=== PATIENT | female | born 1965 | race Caucasian/White ===

== ENCOUNTER → 2016-11-20 | Outpatient (CLI) | payer MEDICAID ==
--- NOTE | 2016-11-21 10:05 | BMR ---
EXAMINATION TYPE: MR breast BILAT wo/w con DATE OF EXAM: 11/20/2016 COMPARISON: Prior MRI bilateral breasts October 23, 2015 HISTORY: Annual screening, hx dense breast tissue, lt breast biopsy CONTRAST: Multiplanar, multisequence images of the breasts were acquired utilizing 15 mL intravenous MultiHance gadolinium contrast. TECHNIQUE: A series of fat and water weighted images in the long and short axis views of both breasts are obtained in conjunction with dynamic contrast MRI with subtraction technique. Three-dimensional and additional postprocessing imaging is created on independent workstation and reviewed during offi cial interpretation of this study. FINDINGS: Extremely dense fibroglandular tissue is redemonstrated throughout both breasts. There is r edemonstration of multiple round T2 hyperintense lesions bilaterally measuring all less than 1 cm arelis aterally. Overall findings are consistent with diffuse fibrocystic change. No suspicious skin thickening is seen bilaterally. The chest wall is grossly intact. No concerning ax illary or intramammary adenopathy is noted. No pathologic enhancement is seen. There is moderate symm etric background enhancement with foci of benign-appearing progressive enhancement bilaterally felt t o reflect adenomyosis. There is artifact from biopsy clip medially in the left breast posterior depth seen near axial image 20. There is stable 6 mm round T2 hyperintense lesion likely simple thin-walled cyst anterior liver on ax ial image 11. IMPRESSION: No MRI evidence for invasive malignancy in either breast. BI-RADS 2 benign findings both breasts. Recommendation: Consider continued annual MRI surveillance in high risk patient. Advise annual mammog zaid surveillance or correlation bilaterally.
== END | disposition home or self-care (01) ==
LOC: RADMRIMAIN 17:12
PROVIDERS: ATTEND Obstetrics & Gynecology
DX: Z12.31 Encounter for screening mammogram for malignant neoplasm of breast (principal)
CPT/HCPCS: 77059; 0159T; A9577

== ENCOUNTER 2017-05-19 06:59 | Day surgery (SDC) | payer MEDICAID ==
[2017-05-17 11:13] VITALS: BMI 25.0
[~2017-05-19 06:59] MED LIST: LACTATED RINGERS 1,000 ML IV SCH
[2017-05-19 07:25] VITALS: TEMP 98.2
[2017-05-19] MEDS ORDERED: LIDOCAINE 1% 20 ML VIAL (10MG/ML) FOR IV START INTRADERMA ONE (07:30)
[2017-05-19] MEDS ORDERED: PROPOFOL 10 MG/ML 20 ML VIAL IV ONE (07:41)
[2017-05-19] MEDS ORDERED: LIDOCAINE 1% INJ 10MG/ML (20 ML MDV) ONE (07:41)
--- NOTE | 2017-05-19 07:57 | P.GSHP ---
History of Present Illness H&P Date: 05/19/17 Patient here today for colonoscopy. She has not had one previously. No bowel related complaints. Her father's has a history of colon polyps. Past Medical History Past Medical History: Thyroid Disorder Additional Past Medical History / Comment(s): ENVIRONMENTAL ALLERGIES History of Any Multi-Drug Resistant Organisms: None Reported Past Surgical History: Appendectomy, Orthopedic Surgery, Tonsillectomy Additional Past Surgical History / Comment(s): sx: appy 1970, 1970 tonsils, 1984 arthroscopic left knee sx Past Anesthesia/Blood Transfusion Reactions: No Reported Reaction Smoking Status: Never smoker - Past Family History Mother Family Medical History: Cancer, CVA/TIA, Mitral Valve Prolapse (MVP) Additional Family Medical History / Comment(s): ca: breast. mitral valve replaced. mom had blood clots Father Family Medical History: COPD, Thyroid Disorder Additional Family Medical History / Comment(s): mom had diabetes Medications and Allergies Home Medications Medication Instructions Recorded Confirmed Type Beclomethasone Dipropionate [Qnasl 4.9 gm NS DAILY 08/30/15 05/19/17 History Children] Fexofenadine HCl [Carolynn Allergy] 180 mg PO QAM 08/30/15 05/19/17 History Levothyroxine Sodium [Synthroid] 12.5 mcg PO TUTHSA 08/30/15 05/19/17 History Montelukast [Singulair] 10 mg PO HS 08/30/15 05/19/17 History Allergies Allergy/AdvReac Type Severity Reaction Status Date / Time Penicillins Allergy Rash/Hives Verified 05/19/17 07:15 Enviro: dust, cat, tree Allergy Mild Stuffy Uncoded 05/19/17 07:15 mold,pollen nose, sneezing Surgical - Exam Vital Signs Temp Pulse Resp BP Pulse Ox 98.2 F 87 18 115/62 99 05/19/17 07:24 05/19/17 07:24 05/19/17 07:24 05/19/17 07:24 05/19/17 07:24 Physical exam: General: Well-developed, well-nourished HEENT: Normocephalic, sclerae nonicteric Abdomen: Nontender, nondistended Extremities: No edema Neuro: Alert and oriented Assessment and Plan (1) Colon cancer screening Narrative/Plan: Will proceed with colonoscopy at this time. Current Visit: Yes Status: Acute Code(s): Z12.11 - ENCOUNTER FOR SCREENING FOR MALIGNANT NEOPLASM OF COLON SNOMED Code(s): 456490366
--- NOTE | 2017-05-19 08:17 | P.PCN ---
Date of Procedure: 05/19/17 Procedure(s) Performed: PREOPERATIVE DIAGNOSIS: Colon cancer screening POSTOPERATIVE DIAGNOSIS: Transverse colon polyp, rectal polyp PROCEDURE: Colonoscopy with snare polypectomy ANESTHESIA: MAC SURGEON: Malachi Parikh M.D. SPECIMENS: Polyps ENDOSCOPIC PROCEDURE: The patient was placed on the endoscopy table in the left decubitus position. The Olympus colonoscope was inserted into the anus and passed under direct visualization to the base of the cecum. The appendiceal orifice was visualized. From that point the scope was slowly withdrawn inspecting all surfaces carefully. There were no neoplastic inflammatory or polypoid lesions throughout the cecum and ascending colon. In the mid transverse colon a sessile polyp was removed using the snare with cautery technique. The remainder of the transverse descending and sigmoid colon appeared normal. In the proximal rectum at about 15 cm there was a pedunculated polyp that was removed using the snare with cautery technique. The remainder the rectum appeared normal. There was no visible diverticulosis in the colon. Digital rectal examination was normal. The patient was taken to the recovery room in stable condition per anesthesia guidelines. RECOMMENDATIONS: Await biopsy results but would anticipate follow-up colonoscopy 5 years.
[2017-05-19 08:47] VITALS: BP 112/73; PULSE 77; RESP 18
== END 2017-05-19 08:54 | disposition home or self-care (01) ==
LOC: ORWHC2ENDO 06:59
PROVIDERS: ATTEND Surgery
DX: Z12.11 Encounter for screening for malignant neoplasm of colon (principal); D12.3 Benign neoplasm of transverse colon; D12.8 Benign neoplasm of rectum; E07.9 Disorder of thyroid, unspecified; Z88.0 Allergy status to penicillin; Z91.09 Other allergy status, other than to drugs and biological substances; Z79.899 Other long term (current) drug therapy; Z83.71 Family history of colonic polyps; Z80.3 Family history of malignant neoplasm of breast; Z83.3 Family history of diabetes mellitus; Z90.49 Acquired absence of other specified parts of digestive tract
CPT/HCPCS: 45385; 81025; 88305; J2001; J2704

== ENCOUNTER → 2017-11-09 | Outpatient (CLI) | payer MEDICAID ==
--- NOTE | 2017-11-11 13:58 | BMR ---
EXAMINATION TYPE: MR breast BILAT wo/w con DATE OF EXAM: 11/09/2017 COMPARISON: 10/23/2015 and 11/20/2016 MR breast HISTORY: High risk surveillance. Dense breast tissue. TECHNIQUE: A series of fat and water weighted images in the long and short axis views of both breasts are obtained in conjunction with dynamic contrast MRI with subtraction technique. The patient was i njected with 7.5 mL intravenous Gadavist gadolinium contrast. Three-dimensional and additional post processing imaging is created on independent workstation and reviewed during official interpretation of this study. FINDINGS: The breasts are composed of extreme fibroglandular tissue. Background parenchymal enhancement is mode rate and symmetric. There are numerous scattered bilateral T2 hyperintense nonenhancing cysts the largest seen within the right breast at the 9:00 position 1.8 and is a complicated cyst. Ductal ectasia is seen bilaterally, left greater than right. Susceptibility artifact is seen within the medial left breast at posterior depth from prior biopsy marker. There is no suspicious mass or nonmass enhancement within either breast. No suspicious washout enhanc ement is seen. No suspicious internal mammary, intramammary or axillary adenopathy within either ike st. There is redemonstration of a 6 mm T2 hyperintense nonenhancing stable probable hepatic cyst on T2 fa t sat axial image 7. This is favored to be benign. IMPRESSION: BI-RADS 2-Benign findings. No MR evidence of malignancy. Annual screening mammography is recommended in addition to supplementation with annual breast MRI in this high-risk patient.
== END | disposition home or self-care (01) ==
LOC: RADMRIMAIN 09:14
PROVIDERS: ATTEND Obstetrics & Gynecology
DX: R92.2 Inconclusive mammogram (principal)
CPT/HCPCS: 77059; 0159T; A9581

== ENCOUNTER → 2018-12-07 | Outpatient (CLI) | payer MEDICAID ==
--- NOTE | 2018-12-08 07:51 | BMR ---
EXAMINATION TYPE: MR breast BILAT wo/w con DATE OF EXAM: 12/07/2018 COMPARISON: Prior MRI bilateral breasts November 09, 2017 BI-RADS 2. HISTORY: Inconclusive mammogram, Dense tissue, Family hx of breast CA. High risk surveillance CONTRAST: Multiplanar, multisequence images of the breasts were acquired utilizing 7 mL intravenous Gadavist ga dolinium contrast. TECHNIQUE: A series of fat and water weighted images in the long and short axis views of both breasts are obtained in conjunction with dynamic contrast MRI with subtraction technique. Three-dimensional and additional postprocessing imaging is created on independent workstation and reviewed during offi [facility] interpretation of this study. FINDINGS: Extremely dense fibroglandular tissue is redemonstrated throughout both breasts. There are multiple thin-walled small cysts identified bilaterally more numerous on the left breast versus right breast. In addition there is ductal prominence or ectasia subareolar region of bilateral breasts, le ft greater than right redemonstrated. There is a more isointense 1.9 cm well-circumscribed nonenhanci ng lesion felt to reflect debris-filled cyst in the right breast anterior depth outer lower quadrant estimated 7-8 o'clock position. This is not significantly changed in size or appearance from prior st udy. Postcontrast images show fairly moderate background glandular enhancement more prominent left br east versus right breast. There is prominent duct medially in the left breast near nipple seen better on current study versus prior. No suspicious internal mammary adenopathy is noted bilaterally. With regards to the right breast. There is no suspicious skin thickening. No pathologic enhancement o r enhancing masses are identified. Chest wall is intact. No suspicious axillary adenopathy is seen. With regard to the left breast. There is artifact from biopsy clip near 9:00 position middle to poste rior depth. Some foci of enhancement or adenosis is present. No suspicious enhancing mass is seen. No pathologic enhancement noted. Chest wall is intact. No suspicious adenopathy is seen. Incidental 9 mm thin-walled cyst in the liver axial image 12 series 301. IMPRESSION: No convincing MRI evidence for invasive malignancy in either breast. BI-RADS 2 benign findings. Recommendation: Consider continuing annual MRI surveillance in high risk patient.
== END | disposition home or self-care (01) ==
LOC: RADMRIMAIN 10:41
PROVIDERS: ATTEND Obstetrics & Gynecology
DX: R92.2 Inconclusive mammogram (principal); Z80.3 Family history of malignant neoplasm of breast; Z88.0 Allergy status to penicillin
CPT/HCPCS: 77049; C8937; A9585

== ENCOUNTER → 2020-01-11 | Outpatient (CLI) | payer MEDICAID ==
--- NOTE | 2020-01-11 12:37 | BMR ---
EXAMINATION TYPE: MR breast BILAT wo/w con DATE OF EXAM: 01/11/2020 COMPARISON: Prior bilateral breast MRI December 07, 2018 BI-RADS 2 and older MRIs. HISTORY: dense tissue high risk patient CONTRAST: Multiplanar, multisequence images of the breasts were acquired utilizing 7 mL intravenous Gadavist ga dolinium contrast. TECHNIQUE: A series of fat and water weighted images in the long and short axis views of both breasts are obtained in conjunction with dynamic contrast MRI with subtraction technique. Three-dimensional and additional postprocessing imaging is created on independent workstation and reviewed during offi cial interpretation of this study. FINDINGS: Extremely dense fibroglandular tissue bilaterally is redemonstrated. T2 and STIR weighted i mages redemonstrate scattered thin-walled small cysts bilaterally more numerous in the left breast ve rsus right breast on background dense tissue though increased cystic change right breast noted from p rior MRI. There is persistent ductal prominence or dictation subareolar region of both breasts bilate rally redemonstrated. T1-weighted images show no new suspicious fat containing masses. Benign subcent imeter lymph nodes are redemonstrated in the bilateral axilla. No suspicious axillary adenopathy. Dyn amic postcontrast images show mild to moderate background glanular enhancement with linear and tiny n odular components, latter favoring benign adenosis. Largest lesion identified is 4 mm enhancing lesio n level of nipple lateral aspect 9:00 level left breast axial image 374 is unchanged from prior MRI. Delayed postcontrast imaging shows no suspicious intramammary adenopathy. With regards to the right breast there is a stable oval well-defined 1.9 cm lesion just below level o f nipple in the outer inferior quadrant anterior depth of T1 slight hyperintensity and T2 hyperintens ity without enhancement felt to reflect a dominant proteinaceous cyst. Just medial and superior to th is at subareolar region right breast lateral aspect of nipple there is 4 to 5 mm enhancing round lesi on not well visualized on T1 and T2-weighted images seen best image 326 series 701. This shows predom inantly gradual and plateau-type enhancement. Favor benign etiology. Not clearly identified on prior MRI. There is no additional pathologic enhancement or enhancing masses identified. No suspicious skin thickening is seen. Chest wall is intact. With regards to the left breast, there is artifact from biopsy clip noted mid to posterior depth medi al aspect just below level of nipple image 43 series 601 near 9 to 10:00 position redemonstrated. No pathologic enhancement or enhancing masses. No suspicious skin thickening. Chest wall is intact. Incidental stable 7 mm thin-walled cyst anterior right hepatic lobe axial image 13 series 301. IMPRESSION: New roughly 5 mm enhancing lesion subareolar region right breast, favored benign based on oval-shaped and fairly benign dynamic postcontrast enhancement but advise further workup due to new lesion from prior MRI. BI-RADS 2 benign findings left breast BI-RADS 4A suspicious findings right breast Recommendation: Targeted ultrasound follow-up right breast lesion.
== END | disposition home or self-care (01) ==
LOC: RADMRIMAIN 08:01
PROVIDERS: ATTEND Obstetrics & Gynecology
DX: N64.9 Disorder of breast, unspecified (principal)
CPT/HCPCS: 77049; C8937; A9585

== ENCOUNTER → 2020-01-26 | Outpatient (CLI) | payer MEDICAID ==
--- NOTE | 2020-01-29 10:40 | USB ---
Reason for exam: clinical finding. Physical Findings: Nurse did not find any significant physical abnormalities on exam. US Breast Limited RT Right limited breast ultrasound including focal area of concern, retroareolar and axilla demonstrates a 2.4 x 2.3 x 0.9cm cystic lesion at 9 o'clock and multiple ducts seen at the posterior nipple. These results were verbally communicated with the patient and result sheet given to the patient on 01/26/20. ASSESSMENT: Probably benign, BI-RAD 3 RECOMMENDATION: Ultrasound of the right breast in 6 months. Breast MRI of both breasts in 6 months. (6 months if possible, otherwise repeat 1 year)
== END | disposition home or self-care (01) ==
LOC: RADUSWWP 07:34
PROVIDERS: ATTEND Obstetrics & Gynecology
DX: N63.10 Unspecified lump in the right breast, unspecified quadrant (principal); Z91.89 Other specified personal risk factors, not elsewhere classified

== ENCOUNTER → 2020-06-26 | Outpatient (CLI) | payer MEDICAID ==
--- NOTE | 2020-06-26 13:01 | BMR ---
EXAMINATION TYPE: MR breast BILAT wo/w con DATE OF EXAM: 06/26/2020 COMPARISON: Prior bilateral breast MRI January 11, 2020 and older studies. HISTORY: Prior abnormal findings, dense tissue, high risk patient TECHNIQUE: A series of fat and water weighted images in the long and short axis views of both breasts are obtained in conjunction with dynamic contrast MRI with subtraction technique. The patient was i njected with 8 mL intravenous Gadavist gadolinium contrast. Three-dimensional and additional postpr ocessing imaging is created on independent workstation and reviewed during official interpretation of this study. FINDINGS: Extremely dense fibroglandular tissue bilaterally is once again redemonstrated. T2 and STIR weighted images redemonstrate multiple scattered thin-walled small and tiny cysts bilaterally more n umerous in the left breast versus right breast on background dense fibroglandular tissue is redemonst rated. There is persistent ductal prominence or dictation subareolar region of both breasts bilateral ly redemonstrated. Subcentimeter benign lymph nodes are redemonstrated and unchanged in the bilateral axilla. No suspicious new axillary adenopathy. Dynamic postcontrast images show moderate background fibroglandular enhancement with linear and tiny nodular components, latter favoring benign adenosis. Findings more prominent from prior MRI making evaluation slightly suboptimal on current study. Findin gs prominent left breast versus right breast on current study. No enhancing focus greater than 4 mm i dentified. Similar findings noted on prior MRI. Delayed dynamic postcontrast imaging shows no suspici ous new intramammary adenopathy. With regards to the right breast there is a stable oval well-defined 1.9 cm lesion just below level o f nipple in the outer inferior quadrant anterior depth of T1 slight hyperintensity and T2 hyperintens ity without enhancement felt to reflect a dominant proteinaceous cyst. . Just medial and superior to this at subareolar region right breast there is stable 4 mm enhancing round lesion not well visualize d on T1 and T2-weighted images seen for reference series 702 image 278 current study. Stability sugge sts benign etiology. There is no new pathologic enhancement or enhancing masses identified. No suspic ious skin thickening is seen. Chest wall is intact. With regards to the left breast, there is artifact from biopsy clip noted mid to posterior depth medi al aspect just below level of nipple image 48 series 601 near 9 to 10:00 position redemonstrated. No new pathologic enhancement or focal enhancing masses. No suspicious skin thickening. Chest wall is in tact. Incidental stable 7 mm thin-walled cyst anterior right hepatic lobe coronal image 29 series 401 redem onstrated. IMPRESSION: No MRI evidence for new invasive malignancy in either breast. BI-RADS 2 benign findings right breast. BI-RADS 2 benign findings left breast. Recommendation: Annual MRI surveillance advised in high risk patients. Annual bilateral breast mammog zaid advised.
== END ==
LOC: RADMRIMAIN 07:14
PROVIDERS: ATTEND Obstetrics & Gynecology
DX: R92.8 Other abnormal and inconclusive findings on diagnostic imaging of breast (principal)
CPT/HCPCS: 77049; C8937; A9585

== ENCOUNTER → 2020-06-28 | Outpatient (CLI) | payer MEDICAID ==
--- NOTE | 2020-06-28 09:40 | USB ---
Reason for exam: follow-up at short interval from prior study. Physical Findings: Nurse did not find any significant physical abnormalities on exam. US Breast Limited RT Right limited breast ultrasound including focal area of concern, retroareolar and axilla demonstrates a 2.5 x 0.9 x 2.4cm oval, cystic, benign lesion at 9 o'clock, benign. Ductal dilation noted. Scanned 9-12 o'clock. These results were verbally communicated with the patient and result sheet given to the patient on 06/28/20. ASSESSMENT: Benign, BI-RAD 2 RECOMMENDATION: Routine screening mammogram of both breasts in 6 months. Alternating 6 month screening mammogram and 6 month screening MRI in a high risk patient (if greater than 20% lifetime risk of developing breast cancer). KIM
== END ==
LOC: RADUSWWP 07:35
PROVIDERS: ATTEND Obstetrics & Gynecology
DX: N60.01 Solitary cyst of right breast (principal); N60.41 Mammary duct ectasia of right breast

== ENCOUNTER → 2021-02-28 | Outpatient (CLI) | payer MEDICAID ==
--- NOTE | 2021-03-01 15:26 | US ---
EXAMINATION TYPE: US pelvis complete transvag DATE OF EXAM: 02/28/2021 COMPARISON: NONE CLINICAL HISTORY: N93.8 Other specified abnormal uterine and vaginal. TECHNIQUE: Transvaginal (TV) and Transabdominal (TA) . Transabdominal sonographic images of the pel vis were acquired. Transvaginal sonographic images were ordered Date of LMP: 01-26-21 EXAM MEASUREMENTS: Uterus: 10.7 x 6.0 x 7.5 cm Endometrial Stripe: 1.7 cm Right Ovary: Obscured by overlying bowel gas Left Ovary: Obscured by overlying bowel gas 1. Uterus: Anteverted 2. Endometrium: wnl 3. Right Ovary: Obscured by overlying bowel gas 4. Left Ovary: Obscured by overlying bowel gas 5. Bilateral Adnexa: wnl 6. Posterior cul-de-sac: wnl IMPRESSION: 1. Thickened endometrial stripe.
== END | disposition home or self-care (01) ==
LOC: RADUSWWP 16:19
PROVIDERS: ATTEND Obstetrics & Gynecology
DX: Z03.89 Encounter for observation for other suspected diseases and conditions ruled out (principal)
CPT/HCPCS: 76830; 76856

== ENCOUNTER → 2021-04-10 | Outpatient (CLI) | payer MEDICAID ==
--- NOTE | 2021-04-15 14:58 | MM ---
Reason for exam: screening (asymptomatic). Last mammogram was performed 6 years ago. History: Patient had first child at age 52. Family history of breast cancer in mother at age 60. Benign ultrasound-guided core biopsy of the left breast, 2013. Physical Findings: A clinical breast exam by your physician is recommended on an annual basis and results should be correlated with mammographic findings. MG 3D Screening Mammo W/Cad Bilateral CC and MLO view(s) were taken. Prior study comparison: June 28, 2020, right breast US breast limited RT. April 02, 2015, mammogram. February 20, 2014, mammogram. The breast tissue is heterogeneously dense. This may lower the sensitivity of mammography. Previous mammotome biopsy in the left breast. There is chronic nodularity in the right breast subareolar 9 o'clock measuring 2.4cm, corresponds to the cyst seen on 06/28/20 ultrasound. No significant changes when compared with prior studies. ASSESSMENT: Benign, BI-RAD 2 RECOMMENDATION: Routine screening mammogram of both breasts in 1 year. Patient should continue monthly self breast exams. If greater than 20% lifetime risk of breast cancer, continued high risk screening with alternating screening mammogram and ultrasound at 6 month intervals.
== END | disposition home or self-care (01) ==
LOC: RADMAMWWP 16:12
PROVIDERS: ATTEND Obstetrics & Gynecology
DX: Z12.31 Encounter for screening mammogram for malignant neoplasm of breast (principal)
CPT/HCPCS: 77063; 77067

== ENCOUNTER 2021-06-04 11:13 | Inpatient (IN) | payer MEDICAID ==
[2021-06-04] MEDS ORDERED: SODIUM CHLORIDE 0.9% 1,000 ML IV STA (11:44)
[2021-06-04] MEDS ORDERED: DEXAMETHASONE SOD PHOSPHATE 10 MG/ML 1 ML VIAL IVP STA (11:45)
[2021-06-04] MEDS ORDERED: ACETAMINOPHEN TAB 500 MG TAB PO STA (11:45)
--- NOTE | 2021-06-04 11:57 | ED ---
General Adult HPI - General Chief complaint: Shortness of Breath Stated complaint: Pneumonia/Low blood oxygen Time Seen by Provider: 06/04/21 11:15 Source: patient, family, RN notes reviewed, old records reviewed Mode of arrival: ambulatory Limitations: no limitations - History of Present Illness Initial comments: This is a 55-year-old female who presents emergency Department complaining of difficulty breathing. Patient states she had cold about 2 weeks ago. On Wednesday he started having difficulty breathing is gotten progressively worse. At home her pulse ox was 79%. Patient is not vaccinated. Patient has been getting fevers chills. Patient states on Wednesday she felt fine but states Wednesday she started having shortness of breath. Patient denies any chest pain or palpitations. Patient denies abdominal pain patient denies nausea vomiting diarrhea. - Related Data Home Medications Medication Instructions Recorded Confirmed Beclomethasone Dipropionate [Qnasl 2 spray EA NOSTRIL DAILY 08/30/15 06/04/21 Children] Levothyroxine Sodium [Synthroid] 25 mcg PO DAILY 08/30/15 06/04/21 Montelukast [Singulair] 10 mg PO HS 08/30/15 06/04/21 Fexofenadine/Pseudoephedrine 1 tab PO DAILY 06/04/21 06/04/21 [Carolynn-D 24 Hour Tablet] Ibuprofen [Motrin Ib] 600 mg PO Q8H PRN 06/04/21 06/04/21 RABEprazole SODIUM 20 mg PO DAILY 06/04/21 06/04/21 methylPREDNISolone [Medrol Dose See Taper PO DAILY 06/04/21 06/04/21 Pack] Allergies Allergy/AdvReac Type Severity Reaction Status Date / Time Penicillins Allergy Rash/Hives Verified 06/04/21 12:09 Enviro: dust, cat, tree Allergy Mild Stuffy Uncoded 06/04/21 11:18 mold,pollen nose, sneezing Review of Systems ROS Statement: Those systems with pertinent positive or pertinent negative responses have been documented in the HPI. ROS Other: All systems not noted in ROS Statement are negative. Past Medical History Past Medical History: Thyroid Disorder Additional Past Medical History / Comment(s): ENVIRONMENTAL ALLERGIES History of Any Multi-Drug Resistant Organisms: None Reported Past Surgical History: Appendectomy, Orthopedic Surgery, Tonsillectomy Additional Past Surgical History / Comment(s): sx: appy 1970, 1970 tonsils, 1985 arthroscopic left knee sx Past Anesthesia/Blood Transfusion Reactions: No Reported Reaction Past Psychological History: No Psychological Hx Reported Smoking Status: Never smoker Past Alcohol Use History: None Reported Past Drug Use History: None Reported - Past Family History Mother Family Medical History: Cancer, CVA/TIA, Mitral Valve Prolapse (MVP) Additional Family Medical History / Comment(s): ca: breast. mitral valve replaced. mom had blood clots Father Family Medical History: COPD, Thyroid Disorder Additional Family Medical History / Comment(s): mom had diabetes General Exam - General Exam Comments Initial Comments: GENERAL: Patient is well-developed and well-nourished. Patient is nontoxic and well-hydrated and is in mild distress. Patient's pulse ox on 6 L was 96% ENT: Neck is soft and supple. No significant lymphadenopathy is noted. Oropharynx is clear. Moist mucous membranes. Neck has full range of motion without eliciting any pain. EYES: The sclera were anicteric and conjunctiva were pink and moist. Extraocular movements were intact and pupils were equal round and reactive to light. Eyelids were unremarkable. PULMONARY: Unlabored respirations. Good breath sounds bilaterally. Bilateral crackles CARDIOVASCULAR: There is a regular rate and rhythm without any murmurs gallops or rubs. ABDOMEN: Soft and nontender with normal bowel sounds. SKIN: Skin is clear with no lesions or rashes and otherwise unremarkable. NEUROLOGIC: Patient is alert and oriented x3. Cranial nerves II through XII are grossly intact. Motor and sensory are also intact. Normal speech, volume and content. Symmetrical smile. MUSCULOSKELETAL: Normal extremities with adequate strength and full range of motion. LYMPHATICS: No significant lymphadenopathy is noted PSYCHIATRIC: Normal psychiatric evaluation. Limitations: no limitations Course Vital Signs 06/04/21 06/04/21 06/04/21 11:15 11:18 13:21 Temperature 98.6 F Pulse Rate 100 91 Respiratory 20 20 Rate Blood Pressure 105/63 115/72 O2 Sat by Pulse 78 L 96 93 L Oximetry Medical Decision Making - Medical Decision Making EKG shows sinus rhythm at 93 bpm AL interval 229 QRSs 106 QT interval 377 QTC is 420. Patient's EKG shows no ST segment elevation or depression. Her chest x- ray shows extensive groundglass infiltrate consistent with COVID. Patient's d-dimer was elevated so I ordered a CAT scan to rule out PE. I spoke with Mr. [facility] agreed to admit the patient admitted the patient I wrote admitting orders. - Lab Data Result diagrams: 06/04/21 12:04 06/04/21 12:04 Lab Results 06/04/21 06/04/21 06/04/21 Range/Units 12:04 12:04 12:04 WBC 11.3 H (3.8-10.6) k/uL RBC 4.20 (3.80-5.40) m/uL Hgb 12.1 (11.4-16.0) gm/dL Hct 37.3 (34.0-46.0) % MCV 88.9 (80.0-100.0) fL MCH 28.8 (25.0-35.0) pg MCHC 32.3 (31.0-37.0) g/dL RDW 14.3 (11.5-15.5) % Plt Count 374 (150-450) k/uL MPV 8.2 Neutrophils % 91 % Lymphocytes % 5 % Monocytes % 2 % Eosinophils % 1 % Basophils % 0 % Neutrophils # 10.3 H (1.3-7.7) k/uL Lymphocytes # 0.5 L (1.0-4.8) k/uL Monocytes # 0.2 (0-1.0) k/uL Eosinophils # 0.1 (0-0.7) k/uL Basophils # 0.0 (0-0.2) k/uL Hypochromasia Slight D-Dimer 9.45 H (<0.60) mg/L FEU Sodium 136 L (137-145) mmol/L Potassium 3.6 (3.5-5.1) mmol/L Chloride 101 (98-107) mmol/L Carbon Dioxide 28 (22-30) mmol/L Anion Gap 7 mmol/L BUN 12 (7-17) mg/dL Creatinine 0.61 (0.52-1.04) mg/dL Est GFR (CKD-EPI)AfAm >90 (>60 ml/min/1.73 sqM) Est GFR (CKD-EPI)NonAf >90 (>60 ml/min/1.73 sqM) Glucose 96 (74-99) mg/dL Calcium 8.1 L (8.4-10.2) mg/dL Total Bilirubin 1.6 H (0.2-1.3) mg/dL AST 77 H (14-36) U/L ALT 88 H (4-34) U/L Alkaline Phosphatase 151 H (38-126) U/L Total Protein 5.5 L (6.3-8.2) g/dL Albumin 2.6 L (3.5-5.0) g/dL Disposition Clinical Impression: Pneumonia due to COVID-19 virus Disposition: ADMITTED IP TO THIS HOSP Referrals: Payal Lopes DO [Primary Care Provider] - 1-2 days Time of Disposition: 13:28
--- NOTE | 2021-06-04 12:38 | XR ---
EXAMINATION TYPE: XR chest 2V DATE OF EXAM: 06/04/2021 COMPARISON: 01/09/2011 HISTORY: Shortness of breath TECHNIQUE: Frontal and lateral views of the chest are obtained. FINDINGS: Scattered senescent parenchymal changes noted. Hyperinflation compatible with COPD. Moderate airspace infiltrates are seen within the periphery of the left lung as well as left lung bas e as well as the right mid and right lower lung baldwin. Correlate for Covid 19 pneumonia. Heart size is stable. Mediastinal structures are stable and grossly unremarkable. No evidence for hilar prominence. Degenerative changes dorsal spine. IMPRESSION: 1. Moderate airspace infiltrates are seen within the periphery of the left lung as well as left lung base as well as the right mid and right lower lung baldwin. Correlate for Covid 19 pneumonia.
[2021-06-04 12:39] LABS: Basophils % (A) 0 %; Eosinophils # (A) 0.1 k/uL (0-0.7); Eosinophils % (A) 1 %; HCT 37.3 % (34.0-46.0); HGB 12.1 gm/dL (11.4-16.0); Hypochromasia Slight; Lymphocytes # (A) 0.5 k/uL (1.0-4.8); Lymphocytes % (A) 5 %; MCH 28.8 pg (25.0-35.0); MCHC 32.3 g/dL (31.0-37.0); MCV 88.9 fL (80.0-100.0); Mean Platelet Volume 8.2; Monocytes # (A) 0.2 k/uL (0-1.0); Monocytes % (A) 2 %; Neutrophils # (A) 10.3 k/uL (1.3-7.7); Neutrophils % (A) 91 %; Platelet Count 374 k/uL (150-450); RDW 14.3 % (11.5-15.5); WBC 11.3 k/uL (3.8-10.6)
[2021-06-04 12:59] LABS: ALT 88 U/L (4-34); AST 77 U/L (14-36); African American GFR (CKD) >90 (>60 ml/min/1.73 sqM); Albumin 2.6 g/dL (3.5-5.0); Alkaline Phosphatase 151 U/L (38-126); Anion Gap 7 mmol/L; Blood Urea Nitrogen 12 mg/dL (7-17); Calcium 8.1 mg/dL (8.4-10.2); Carbon Dioxide 28 mmol/L (22-30); Chloride 101 mmol/L (98-107); Glucose 96 mg/dL (74-99); Non-African American GFR(CKD) >90 (>60 ml/min/1.73 sqM); Potassium 3.6 mmol/L (3.5-5.1); Sodium 136 mmol/L (137-145); Total Bilirubin 1.6 mg/dL (0.2-1.3); Total Protein 5.5 g/dL (6.3-8.2)
[2021-06-04] MEDS ORDERED: SODIUM CHLORIDE 0.9% 1,000 ML IV ONE (13:28)
--- NOTE | 2021-06-04 14:52 | CT ---
EXAMINATION TYPE: CT chest angio for PE DATE OF EXAM: 06/04/2021 COMPARISON: 07/16/2015 HISTORY: Cough, elevated d-dimer CT DLP: 314.3 mGycm Automated exposure control for dose reduction was used. CONTRAST: CT Chest for pulmonary embolism performed with with IV Contrast, patient injected with 100 mL of Isov ue 370. FINDINGS: LUNGS: There are diffuse bilateral infiltrate greater peripheral enhancement. Findings compatible wit h diffuse pneumonia. COVID pneumonia in the differential diagnosis. No sizable pleural effusion. No p neumothorax. Subpleural nodularity is a small to characterize. MEDIASTINUM: There is no diagnostic evidence of central pulmonary embolism. Some limitation of the mi d and distal branches with no definite filling defect seen to suggest pulmonary embolism. Pathologic adenopathy in the right hilum measuring short axis of 1.7 cm. Heart size normal. Aorta measures 4.1 c m mild aneurysmal dilation. There is very mild coronary artery calcification suspected. Trace of wesley cardial fluid noted. OTHER: Hypertrophic and degenerative changes of visualized. Small hypodensity seen in dome of the liver too small to characterize but statistically most likely r elated to a cyst. Retrospectively stable from prior exam. Hypodensity in the hilum of the spleen gigi ures approximately 27 Hounsfield units IMPRESSION: 1. Diffuse bilateral infiltrates correlate for diffuse pneumonia with a pathologic right hilar adenop athy. 2. No central pulmonary embolism. Mid and distal branches somewhat limited with no obvious filling d efect seen. 3. Mild aneurysmal dilation ascending aorta measuring 4.1 cm 4. Indeterminate splenic lesion could be correlated with ultrasound.
[2021-06-04] MEDS ORDERED: cefTRIAXone IN SWFI 1,000 MG/10 ML SYRINGE IVP STA (14:56)
[2021-06-04] MEDS ORDERED: AZITHROMYCIN 500 MG in SODIUM CHLORIDE 0.9% 250 ML IVPB STA (14:56)
--- NOTE | 2021-06-04 15:22 | P.CNPUL ---
History of Present Illness Consult date: 06/04/21 Requesting physician: Payal Lopes Reason for consult: dyspnea, cough, hypoxemia, pneumonia, abnormal CXR/CT Chief complaint: Shortness of breath. History of present illness: Pulmonary consult dated 06/04/2021. 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 The patient apparently has not been feeling well for at least a couple weeks. She apparently tested positive for coronavirus back on May 23. Early on, she mostly had nasal congestion and drainage. More recently, she's been feeling worse, but she over the last 4 or 5 days. She apparently started having difficulty breathing over the weekend, her home pulse ox saturation was only 79%. She had fever and chills. For that reason, she came to the emergency room to be evaluated was minute with a diagnosis of hypoxemic respiratory failure secondary to coronavirus associated pneumonia. The patient is on vaccinated. She has no significant past medical history save for ALLERGIES, and hypothyroidism.. She does not use tobacco products. Her family doctor is Dr. Lopes. Currently, she is on 4 L nasal cannula. She's not receiving any IV fluids. Her white count was 11.3, hemoglobin 12.1, johnna tocrit 37.3, platelet count 374,000. D-dimer was 9.45. Sodium was 136. The rest of the electrolyte profile looks good. Calcium 8.1 bilirubin 1.6 AST 77 ALT 88 and albumin 2.6. Testing here for coronavirus was positive. Chest x-ray shows diffuse bilateral infiltrates. CAT scan was negative for pulmonary embolism but did reveal significant bilateral groundglass opacities. Review of Systems REVIEW OF SYSTEMS: CONSTITUTIONAL: [Negative.] NEUROLOGIC: [ Negative.] HEENT: [ Negative.] CARDIAC: [Negative.] PULMONARY: Shortness of breath and cough. GI: [Negative.] : [Negative.] RHEUMATOLOGIC: [ Negative.] IMMUNOLOGIC: [ Negative.] ENDOCRINE: [Negative. ] DERMATOLOGIC: [Negative.] Past Medical History Past Medical History: Thyroid Disorder Additional Past Medical History / Comment(s): ENVIRONMENTAL ALLERGIES History of Any Multi-Drug Resistant Organisms: None Reported Past Surgical History: Appendectomy, Orthopedic Surgery, Tonsillectomy Additional Past Surgical History / Comment(s): sx: appy 1970, 1971 tonsils, 1985 arthroscopic left knee sx Past Anesthesia/Blood Transfusion Reactions: No Reported Reaction Past Psychological History: No Psychological Hx Reported Smoking Status: Never smoker Past Alcohol Use History: None Reported Past Drug Use History: None Reported - Past Family History Mother Family Medical History: Cancer, CVA/TIA, Mitral Valve Prolapse (MVP) Additional Family Medical History / Comment(s): ca: breast. mitral valve replaced. mom had blood clots Father Family Medical History: COPD, Thyroid Disorder Additional Family Medical History / Comment(s): mom had diabetes Medications and Allergies Home Medications Medication Instructions Recorded Confirmed Type Beclomethasone Dipropionate [Qnasl 2 spray EA NOSTRIL DAILY 08/30/15 06/04/21 History Children] Levothyroxine Sodium [Synthroid] 25 mcg PO DAILY 08/30/15 06/04/21 History Montelukast [Singulair] 10 mg PO HS 08/30/15 06/04/21 History Fexofenadine/Pseudoephedrine 1 tab PO DAILY 06/04/21 06/04/21 History [Carolynn-D 24 Hour Tablet] Ibuprofen [Motrin Ib] 600 mg PO Q8H PRN 06/04/21 06/04/21 History RABEprazole SODIUM 20 mg PO DAILY 06/04/21 06/04/21 History methylPREDNISolone [Medrol Dose See Taper PO DAILY 06/04/21 06/04/21 History Pack] Allergies Allergy/AdvReac Type Severity Reaction Status Date / Time Penicillins Allergy Rash/Hives Verified 06/04/21 12:09 Enviro: dust, cat, tree Allergy Mild Stuffy Uncoded 06/04/21 11:18 mold,pollen nose, sneezing Physical Exam Osteopathic Statement: *. No significant issues noted on an osteopathic structural exam other than those noted in the History and Physical/Consult. Vitals: Vital Signs Temp Pulse Resp BP Pulse Ox 06/04/21 14:47 92 18 126/81 94 L 06/04/21 13:21 91 20 115/72 93 L 06/04/21 12:30 18 06/04/21 11:18 96 06/04/21 11:15 98.6 F 100 20 105/63 78 L Intake and Output 06/04/21 06/04/21 06/04/21 06:59 14:59 22:59 Other: Weight 75.296 kg No acute distress, oriented 3. Currently on 4 L nasal cannula. HEENT examination is grossly unremarkable. Neck supple. Full range of motion. No adenopathy thyromegaly or neck vein distention. Cardiovascular examination reveals regular rhythm rate. S1-S2 normal. No S3 or S4. No discernible murmur noted. Heart rate 92 bpm. Lungs reveal coarse bilateral rhonchi. Bilateral crackles are noted. No wheezes. Rest sounds equal bilaterally. 4 L saturation is 93%. Abdomen soft bowel sounds are heard. No masses or tenderness. Extremities are intact. No cyanosis clubbing or edema. Skin is without rash or lesion. Neurologic examination is brief but nonfocal. Results - Laboratory Findings CBC and BMP: 06/04/21 12:04 06/04/21 12:04 PT/INR, D-dimer D-Dimer 9.45 mg/L FEU (<0.60) H 06/04/21 12:04 Abnormal lab findings: Abnormal Labs 06/04/21 06/04/21 06/04/21 12:04 12:04 12:04 WBC 11.3 H Neutrophils # 10.3 H Lymphocytes # 0.5 L D-Dimer 9.45 H Sodium 136 L Calcium 8.1 L Total Bilirubin 1.6 H AST 77 H ALT 88 H Alkaline Phosphatase 151 H Total Protein 5.5 L Albumin 2.6 L - Diagnostic Findings Chest x-ray: image reviewed CT scan - chest: image reviewed Assessment and Plan Assessment: Acute hypoxemic respiratory failure secondary to coronavirus associated pneumonia. History of hypothyroidism. History of environmental ALLERGIES. Patient is on vaccinated. Plan: Plan dated 06/04/2021. The patient started having symptoms way back on May 23. She is not a candidate for REM. She's currently not sick enough to receive a monoclonal antibody against interleukin-6. Labs, x-rays, and medications are all reviewed. The patient should get Decadron, Lovenox, and vitamins. Additional recommendations and suggestions are forthcoming. The patient may end up deteriorating, and require additional oxygenation. Prognosis is guarded. We will continue to follow make recommendations where appropriate. Time with Patient: Greater than 30
--- NOTE | 2021-06-04 16:12 | HP ---
HISTORY AND PHYSICAL DATE OF SERVICE: 06/04/2021 CHIEF COMPLAINT: Shortness of breath. HISTORY OF PRESENT ILLNESS: This 55-year-old woman with a past medical history of thyroid disorder and environmental allergies, being followed by Dr. Donohue in the outpatient setting, initially had nasal discharge and cough and other symptoms and was tested positive for COVID on May 23. Subsequently patient developed increasing cough and shortness of breath and then the patient was taken to Dr. Donohue's clinic and was seen by Dr. Diana Chris and referred to [facility]. The pulse ox initially was 70% on room air, and it improved to 92% on 2 L oxygen. Chest x-ray and CT scan of the chest, which were reviewed personally by me, showed extensive bilateral initial pneumonia suggestive of COVID-19. There is no history of any fever, rigors, chills. The patient had multiple laboratory abnormalities. PAST MEDICAL HISTORY: Thyroid disorder, environmental allergies. HOME MEDICATIONS: Home medications include Medrol Dosepak, Singulair, Synthroid. Doses and other medications also reviewed. ALLERGIES: PENICILLIN. FAMILY HISTORY: No history of heart disease or strokes in the family. 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 No history of smoking. No history of alcohol intake. REVIEW OF SYSTEMS: Fourteen-point review of systems negative except as mentioned above. PHYSICAL EXAMINATION: Pulse 91, blood pressure 115/70, respiration 20, pulse ox 93% on 4 L. HEENT: Conjunctivae normal. CARDIOVASCULAR: S1, S2 muffled. RESPIRATION: A few scattered rhonchi and crackles. ABDOMEN: Soft, nontender. NERVOUS SYSTEM: No focal deficit. LABS: Labs at this time show WBC 11.6, hemoglobin 12.1, and D-dimer is 9.45. Sodium 136, total bilirubin is 1.6, AST 77, ALT 88. ASSESSMENT: 1. Acute COVID-19 infection with bilateral interstitial pneumonia with acute hypoxic respiratory failure. 2. Elevated liver function tests, possibly secondary to COVID-19. 3. Hypothyroidism. RECOMMENDATIONS AND DISCUSSION: In this 55-year-old woman who presented with multiple complex medical issues, we will monitor the patient closely, continue the current medication, bronchodilators. I will initiate Lovenox. Procalcitonin will be ordered. Pulmonary consultation with Dr. Adorno. Repeat labs. As mentioned, chest x-ray reviewed. Supplement vitamins. See orders for further details. Further recommendations to follow. A copy of this dictation is being forwarded to Dr. Donohue, who is the primary physician. MMELLISL / IJN: [id number] / KIM
[2021-06-04] MEDS: ALBUTEROL HFA INHALER INHALATION SCH (19:27)
[2021-06-04] MEDS: MONTELUKAST 10 MG TAB PO SCH (21:07)
[2021-06-04] MEDS: ACETAMINOPHEN TAB 325 MG TAB PO PRN (21:07)
[2021-06-04] MEDS: guaiFENesin-DM 100-10MG/5ML 10 ML CUP PO PRN (22:14)
[2021-06-05] MEDS: ACETAMINOPHEN TAB 325 MG TAB PO PRN (03:32)
[2021-06-05] MEDS: guaiFENesin-DM 100-10MG/5ML 10 ML CUP PO PRN ×2 (03:32→22:17)
[2021-06-05] MEDS: LEVOTHYROXINE 25 MCG TAB PO SCH (05:08)
[2021-06-05] MEDS: ALBUTEROL HFA INHALER INHALATION SCH ×3 (07:20→20:17)
[2021-06-05 09:00] LABS: African American GFR (CKD) 118.9 (60.0-200.0); Albumin 2.6 g/dL (3.8-4.9); Albumin/Globulin Ratio 1.04 (1.60-3.17); Anion Gap 13.8 mmol/L (10.00-18.00); BUN/Creat Ratio 15.67 Ratio (12.00-20.00); Blood Urea Nitrogen 9.4 mg/dL (9.0-27.0); Calcium 7.6 mg/dL (8.7-10.3); Carbon Dioxide 22.2 mmol/L (20.0-27.5); Globulin 2.5 g/dL (1.6-3.3); Non-African American GFR(CKD) 102.6 (60.0-200.0); Potassium 3.5 mmol/L (3.5-5.5); Total Bilirubin 0.6 mg/dL (0.30-1.20); Total Protein 5.1 g/dL (6.2-8.2)
[2021-06-05 09:41] LABS: Basophils # (A) 0.02 X 10*3/uL (0.00-0.10); Basophils % (A) 0.2 %; Eosinophils # (A) 0 X 10*3/uL (0.04-0.35); Eosinophils % (A) 0 %; HCT 30.9 % (37.2-46.3); HGB 9.8 g/dL (12.0-15.0); Immature Grans, Automated 1.5 %; Lymphocytes # (A) 0.69 X 10*3/uL (0.90-5.00); Lymphocytes % (A) 5.6 %; MCH 27.6 pg (27.0-32.0); MCHC 31.7 g/dL (32.0-37.0); Mean Platelet Volume 10.6 fL (9.5-12.2); Monocytes # (A) 0.41 X 10*3/uL (0.20-1.00); Monocytes % (A) 3.3 %; NRBC Per 100 WBC 0 /100 WBCS (0.0-0.0); Neutrophils # (A) 11.07 X 10*3/uL (1.80-7.70); Neutrophils % (A) 89.4 %; Platelet Count 278 X 10*3/uL (140-440); RBC 3.55 X 10*6/uL (4.10-5.20); RDW 15.4 % (11.5-14.5); WBC 12.37 X 10*3/uL (4.50-10.00)
[2021-06-05] MEDS: PANTOPRAZOLE 40 MG TABLET PO SCH (10:15)
[2021-06-05] MEDS: CHOLECALCIFEROL 125 MCG (5000 IU) TABLET PO SCH (10:15)
[2021-06-05] MEDS: dexAMETHasone 2 MG TAB PO SCH (10:15)
[2021-06-05] MEDS: ASCORBIC ACID 500 MG TAB PO SCH (10:15)
[2021-06-05] MEDS: ZINC SULFATE 220 MG CAP PO SCH (10:15)
[2021-06-05] MEDS: ENOXAPARIN 40 MG/0.4 ML SYRINGE SQ SCH (10:16)
[2021-06-05] MEDS: BECLOMETHASONE DIPROPIONATE EA NOSTRIL SCH (10:18)
--- NOTE | 2021-06-05 12:04 | P.PN ---
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 The patient apparently has not been feeling well for at least a couple weeks. She apparently tested positive for coronavirus back on May 23. Early on, she mostly had nasal congestion and drainage. More recently, she's been feeling worse, but she over the last 4 or 5 days. She apparently started having difficulty breathing over the weekend, her home pulse ox saturation was only 79%. She had fever and chills. For that reason, she came to the emergency room to be evaluated was minute with a diagnosis of hypoxemic respiratory failure secondary to coronavirus associated pneumonia. The patient is on vaccinated. She has no significant past medical history save for ALLERGIES, and hypothyroidism.. She does not use tobacco products. Her family doctor is Dr. Lopes. Currently, she is on 4 L nasal cannula. She's not receiving any IV fluids. Her white count was 11.3, hemoglobin 12.1, hematocrit 37.3, platelet count 374,000. D-dimer was 9.45. Sodium was 136. The rest of the electrolyte profile looks good. Calcium 8.1 bilirubin 1.6 AST 77 ALT 88 and albumin 2.6. Testing here for coronavirus was positive. Chest x- ray shows diffuse bilateral infiltrates. CAT scan was negative for pulmonary embolism but did reveal significant bilateral groundglass opacities. The patient is seen today 06/05/2021 in follow-up on the regular medical floor. She is currently resting comfortably in bed. Awake and alert in no acute distress. She is still coughing. She still is congested. She is requiring 6 L high flow nasal cannula now to maintain O2 saturation the high 80s low 90s. No fever or chills. No hemoptysis. She is currently on Decadron, Lovenox, vitamin supplements. White count 12.3. Hemoglobin 9.8. Lymphocytes 0.7. Sodium 140. Potassium 3.5. Creatinine 0.6. Glucose 120. Objective - Vital Signs Vital signs: Vital Signs Temp 97.8 F 06/05/21 10:00 Pulse 90 06/05/21 10:00 Resp 16 06/05/21 10:00 BP 118/72 06/05/21 10:00 Pulse Ox 94 L 06/05/21 11:50 Intake & Output 06/04/21 06/05/21 06/05/21 18:59 06:59 18:59 Intake Total 236 Balance 236 Weight 75.296 kg 75.296 kg Intake: Oral 236 Other: Voiding Method Toilet - Exam Pleasant 55-year-old female patient. No acute distress, oriented 3. Currently on 6 L nasal cannula. HEENT examination is grossly unremarkable. Neck supple. Full range of motion. No adenopathy thyromegaly or neck vein distention. Cardiovascular examination reveals regular rhythm rate. S1-S2 normal. No S3 or S4. No discernible murmur noted. Heart rate 92 bpm. Lungs reveal coarse bilateral rhonchi. Bilateral coarse crackles are noted. No wheezes. Rest sounds equal bilaterally. 6 L high flow nasal cannula. Abdomen soft bowel sounds are heard. No masses or tenderness. Extremities are intact. No cyanosis clubbing or edema. Skin is without rash or lesion. Neurologic examination is brief but nonfocal. - Labs CBC & Chem 7: 06/05/21 05:26 06/05/21 05:26 Labs: Abnormal Lab Results - Last 24 Hours (Table) 06/04/21 06/04/21 06/04/21 Range/Units 12:04 12:04 12:04 WBC 11.3 H (3.8-10.6) k/uL RBC (4.10-5.20) X 10*6/uL Hgb (12.0-15.0) g/dL Hct (37.2-46.3) % MCHC (32.0-37.0) g/dL RDW (11.5-14.5) % Immature Gran # (0.00-0.04) X 10*3/uL Neutrophils # 10.3 H (1.3-7.7) k/uL Lymphocytes # 0.5 L (1.0-4.8) k/uL Eosinophils # (0.04-0.35) X 10*3/uL D-Dimer 9.45 H (<0.60) mg/L FEU Sodium 136 L (137-145) mmol/L Glucose (70-110) mg/dL Calcium 8.1 L (8.4-10.2) mg/dL Total Bilirubin 1.6 H (0.2-1.3) mg/dL AST 77 H (14-36) U/L ALT 88 H (4-34) U/L Alkaline Phosphatase 151 H (38-126) U/L Total Protein 5.5 L (6.3-8.2) g/dL Albumin 2.6 L (3.5-5.0) g/dL Albumin/Globulin Ratio (1.60-3.17) g/dL Coronavirus (PCR) (Not Detectd) 06/04/21 06/05/21 06/05/21 Range/Units 14:47 05:26 05:26 WBC 12.37 H (3.8-10.6) k/uL RBC 3.55 L (4.10-5.20) X 10*6/uL Hgb 9.8 L (12.0-15.0) g/dL Hct 30.9 L (37.2-46.3) % MCHC 31.7 L (32.0-37.0) g/dL RDW 15.4 H (11.5-14.5) % Immature Gran # 0.18 H (0.00-0.04) X 10*3/uL Neutrophils # 11.07 H (1.3-7.7) k/uL Lymphocytes # 0.69 L (1.0-4.8) k/uL Eosinophils # 0 L (0.04-0.35) X 10*3/uL D-Dimer (<0.60) mg/L FEU Sodium (137-145) mmol/L Glucose 120 H (70-110) mg/dL Calcium 7.6 L (8.4-10.2) mg/dL Total Bilirubin (0.2-1.3) mg/dL AST 48 H (14-36) U/L ALT 78 H (4-34) U/L Alkaline Phosphatase 127 H (38-126) U/L Total Protein 5.1 L (6.3-8.2) g/dL Albumin 2.6 L (3.5-5.0) g/dL Albumin/Globulin Ratio 1.04 L (1.60-3.17) g/dL Coronavirus (PCR) Detected A (Not Detectd) Assessment and Plan Assessment: Acute hypoxemic respiratory failure secondary to coronavirus associated pneumonia. History of hypothyroidism. History of environmental ALLERGIES. Patient is on vaccinated. Plan: The patient was seen and evaluated Still requiring increasing FiO2 to maintain O2 saturations in the high 80s low 90s Continue Decadron, Lovenox, vitamin supplements May require Baricitinib if oxygen requirements worsen We will continue to follow and make further recommendations based on her clinical status I, the cosigning physician, performed a history & physical examination of the patient. Lungs sounds coarse crackles bilaterally. Maintaining O2 saturations in the 90s on 6 L high flow nasal cannula. I discussed the assessment and plan of care with my nurse practitioner, Barbara Sue. I attest to the above note as dictated by her.
--- NOTE | 2021-06-05 12:26 | XR ---
EXAMINATION TYPE: XR chest 1V portable DATE OF EXAM: 06/05/2021 COMPARISON: . HISTORY: Difficulty breathing TECHNIQUE: Single frontal view of the chest is obtained. FINDINGS: Bilateral infiltrates with a greater peripheral involvement. Heart size stable and normal. Slight curvature of the spine with degenerative changes. No pneumothorax. Tiny pleural effusions not excluded. IMPRESSION: Diffuse bilateral infiltrate with a greater peripheral disc effusion correlate for pneum onia including COVID pneumonia otherwise consider allergic hypersensitivity reaction.
[2021-06-05] MEDS: MULTIVITAMINS, THERA 1 EACH TAB PO SCH (12:35)
[2021-06-05 16:07] LABS: Appearance,Urine Clear (Clear); Bilirubin,Urine Negative (Negative); Blood,Urine Negative (Negative); Color,Urine Yellow; Glucose,Urine (UA) Negative (Negative); Ketones,Urine Negative (Negative); Leukocyte Esterase,Urine Negative (Negative); Nitrite,Urine Negative (Negative); Protein,Urine Trace (Negative); Specific Gravity,Urine 1.012 (1.001-1.035)
[2021-06-05] MEDS: MONTELUKAST 10 MG TAB PO SCH (21:45)
--- NOTE | 2021-06-05 23:38 | P.PN ---
Subjective Progress Note Date: 06/05/21 06/05/2021 This is a 55 year old female who was admitted with increasing shortness of breath and cough with congestion and is being closely monitored. Pulmonary following. Patient was positive for Covid 19 on Fe and also positive here on ED admission. Patient is not vaccinated. Patient continues with shortness of breath and cough. Patient requiring more oxygen and currently on 15L HF NC and was 6L this am. Patient maintained on lovenox, oral dexamethasone, vitamins and zinc and will continue. Procalcitonin and chest xray ordered and pending. Review of systems: Constitutional: No reports of fatigue, fever, or chills Cardiovascular: No reports of chest pain or palpitations Respiratory: reports of shortness of breath and cough GI: No reports of nausea, vomiting, or diarrhea : No reports of dysuria or retention Neurovascular: reports of generalized weakness All medications have been reviewed Active Medications Acetaminophen (Acetaminophen Tab 325 Mg Tab) 650 mg PO Q6HR PRN PRN Reason: Fever and/ or Mild Pain Last Admin: 06/05/21 03:32 Dose: 650 mg Documented by: Albuterol Sulfate (Albuterol Hfa Inhaler) 2 puff INHALATION RT-TID [facility] Last Admin: 06/05/21 20:17 Dose: 2 puff Documented by: Albuterol Sulfate (Albuterol Hfa Inhaler) 2 puff INHALATION RT-TID PRN PRN Reason: Shortness Of Breath Or Wheezing Ascorbic Acid (Ascorbic Acid 500 Mg Tab) 1,000 mg PO DAILY [facility] Last Admin: 06/05/21 10:15 Dose: 1,000 mg Documented by: Cholecalciferol (Cholecalciferol 125 Mcg (5000 Iu) Tablet) 125 mcg PO DAILY [facility] Last Admin: 06/05/21 10:15 Dose: 125 mcg Documented by: Dexamethasone (Dexamethasone 2 Mg Tab) 6 mg PO DAILY [facility] Last Admin: 06/05/21 10:15 Dose: 6 mg Documented by: Enoxaparin Sodium (Enoxaparin 40 Mg/0.4 Ml Syringe) 40 mg SQ DAILY [facility] Last Admin: 06/05/21 10:16 Dose: 40 mg Documented by: Guaifenesin/Dextromethorphan (Guaifenesin-Dm 100-10mg/5ml 10 Ml Cup) 5 ml PO Q4HR PRN PRN Reason: Cough Last Admin: 06/05/21 22:17 Dose: 5 ml Documented by: Levothyroxine Sodium (Levothyroxine 25 Mcg Tab) 25 mcg PO DAILY@0630 [facility] Last Admin: 06/05/21 05:08 Dose: 25 mcg Documented by: Montelukast Sodium (Montelukast 10 Mg Tab) 10 mg PO HS [facility] Last Admin: 06/05/21 21:45 Dose: 10 mg Documented by: Multivitamins (Multivitamins, Thera 1 Each Tab) 1 each PO DAILY@1200 [facility] Last Admin: 06/05/21 12:35 Dose: 1 each Documented by: Non-Formulary Medication (Beclomethasone Dipropionate [Qnasl Children]) 2 spray EA NOSTRIL DAILY [facility] Last Admin: 06/05/21 10:18 Dose: Not Given Documented by: Pantoprazole Sodium (Pantoprazole 40 Mg Tablet) 40 mg PO AC-BRKFST [facility] Last Admin: 06/05/21 10:15 Dose: 40 mg Documented by: Zinc Sulfate (Zinc Sulfate 220 Mg Cap) 220 mg PO DAILY [facility] Last Admin: 06/05/21 10:15 Dose: 220 mg Documented by: PHYSICAL EXAMINATION: GENERAL: The patient is alert and oriented, well developed, well nourished. currently on 15L HF HEENT: Pupils are round and equally reacting to light. EOMI. does have scleral icterus. No conjunctival pallor. Normocephalic, atraumatic. No pharyngeal erythema. No thyromegaly. CARDIOVASCULAR: S1 and S2 muffled PULMONARY: diminished breath sounds bilaterally with Few scattered coarse rhonchi noted. ABDOMEN: soft. non-tender. Non-distended, normoactive bowel sounds. No palpable organomegaly. MUSCULOSKELETAL: No joint swelling or deformity. EXTREMITIES: No cyanosis, clubbing, or pedal edema. NEUROLOGICAL: Gross neurological examination did not reveal any focal deficits. SKIN: No rashes. Assessment: Acute covid 19 infection with bilateral interstitial pneumonia with acute hypoxic respiratory failure Elevated liver function tests, possibly secondary to covid 19 hypothyroidism elevated d-dimer with no evidence of PE on CT dvt prophylaxis GI prophylaxis Full code Plan: Recommend to continue with current medications and symptomatic treatment. Patient having increasing shortness of breath and now currently on 15L HF and wa s previously on 4L via NC this morning. Pulmonary following. Patient continues on lovenox, vitamin and zinc supplements and oral dexamethasone. Will add incentive spirometer. Chest xray ordered along with procalcitonin. Due to multiple complex medical issues, prognosis is guarded. The impression and plan of care has been dictated by Monica Rodriguez, nurse practitioner as directed. MD Dwight I have performed a history and examination and MDM of this patient, discussed the same with the dictator, and agree with the dictator's assessment and plan as written ,documented as a scribe. Based on total visit time, I have performed more than 50% of the visit. Any additional findings or plans will be noted. Objective - Vital Signs Vital signs: Vital Signs Temp 97.5 F L 06/05/21 06:00 Pulse 82 06/05/21 06:00 Resp 18 06/05/21 06:00 BP 120/76 06/05/21 06:00 Pulse Ox 90 L 06/05/21 06:00 Intake & Output 06/04/21 06/05/21 06/05/21 18:59 06:59 18:59 Weight 75.296 kg 75.296 kg Other: Voiding Method Toilet - Labs CBC & Chem 7: 06/05/21 05:26 06/05/21 05:26 Labs: Abnormal Lab Results - Last 24 Hours (Table) 06/04/21 06/04/21 06/04/21 Range/Units 12:04 12:04 12:04 WBC 11.3 H (3.8-10.6) k/uL Neutrophils # 10.3 H (1.3-7.7) k/uL Lymphocytes # 0.5 L (1.0-4.8) k/uL D-Dimer 9.45 H (<0.60) mg/L FEU Sodium 136 L (137-145) mmol/L Glucose (70-110) mg/dL Calcium 8.1 L (8.4-10.2) mg/dL Total Bilirubin 1.6 H (0.2-1.3) mg/dL AST 77 H (14-36) U/L ALT 88 H (4-34) U/L Alkaline Phosphatase 151 H (38-126) U/L Total Protein 5.5 L (6.3-8.2) g/dL Albumin 2.6 L (3.5-5.0) g/dL Albumin/Globulin Ratio (1.60-3.17) g/dL Coronavirus (PCR) (Not Detectd) 06/04/21 06/05/21 Range/Units 14:47 05:26 WBC (3.8-10.6) k/uL Neutrophils # (1.3-7.7) k/uL Lymphocytes # (1.0-4.8) k/uL D-Dimer (<0.60) mg/L FEU Sodium (137-145) mmol/L Glucose 120 H (70-110) mg/dL Calcium 7.6 L (8.4-10.2) mg/dL Total Bilirubin (0.2-1.3) mg/dL AST 48 H (14-36) U/L ALT 78 H (4-34) U/L Alkaline Phosphatase 127 H (38-126) U/L Total Protein 5.1 L (6.3-8.2) g/dL Albumin 2.6 L (3.5-5.0) g/dL Albumin/Globulin Ratio 1.04 L (1.60-3.17) g/dL Coronavirus (PCR) Detected A (Not Detectd)
[2021-06-06] MEDS: LEVOTHYROXINE 25 MCG TAB PO SCH (05:36)
[2021-06-06] MEDS: BECLOMETHASONE DIPROPIONATE EA NOSTRIL SCH (08:31)
[2021-06-06] MEDS: ASCORBIC ACID 500 MG TAB PO SCH (08:41)
[2021-06-06] MEDS: PANTOPRAZOLE 40 MG TABLET PO SCH (08:41)
[2021-06-06] MEDS: dexAMETHasone 2 MG TAB PO SCH (08:42)
[2021-06-06] MEDS: ZINC SULFATE 220 MG CAP PO SCH (08:42)
[2021-06-06] MEDS: ENOXAPARIN 40 MG/0.4 ML SYRINGE SQ SCH (08:42)
[2021-06-06] MEDS: MULTIVITAMINS, THERA 1 EACH TAB PO SCH (08:42)
[2021-06-06] MEDS: CHOLECALCIFEROL 125 MCG (5000 IU) TABLET PO SCH (08:42)
[2021-06-06] MEDS: ALBUTEROL HFA INHALER INHALATION SCH ×3 (09:29→20:30)
--- NOTE | 2021-06-06 18:00 | P.PN ---
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 The patient apparently has not been feeling well for at least a couple weeks. She apparently tested positive for coronavirus back on May 23. Early on, she mostly had nasal congestion and drainage. More recently, she's been feeling worse, but she over the last 4 or 5 days. She apparently started having difficulty breathing over the weekend, her home pulse ox saturation was only 79%. She had fever and chills. For that reason, she came to the emergency room to be evaluated was minute with a diagnosis of hypoxemic respiratory failure secondary to coronavirus associated pneumonia. The patient is on vaccinated. She has no significant past medical history save for ALLERGIES, and hypothyroidism.. She does not use tobacco products. Her family doctor is Dr. Lopes. Currently, she is on 4 L nasal cannula. She's not receiving any IV fluids. Her white count was 11.3, hemoglobin 12.1, hematocrit 37.3, platelet count 374,000. D-dimer was 9.45. Sodium was 136. The rest of the electrolyte profile looks good. Calcium 8.1 bilirubin 1.6 AST 77 ALT 88 and albumin 2.6. Testing here for coronavirus was positive. Chest x- ray shows diffuse bilateral infiltrates. CAT scan was negative for pulmonary embolism but did reveal significant bilateral groundglass opacities. The patient is seen today 06/05/2021 in follow-up on the regular medical floor. She is currently resting comfortably in bed. Awake and alert in no acute distress. She is still coughing. She still is congested. She is requiring 6 L high flow nasal cannula now to maintain O2 saturation the high 80s low 90s. No fever or chills. No hemoptysis. She is currently on Decadron, Lovenox, vitamin supplements. White count 12.3. Hemoglobin 9.8. Lymphocytes 0.7. Sodium 140. Potassium 3.5. Creatinine 0.6. Glucose 120. The patient is seen today 06/06/2021 in follow-up on the regular medical floor. She is awake and alert in no acute distress. She is requiring 15 L high flow nasal cannula to maintain O2 saturations in the high 80s low 90s. She is doing about the same compared to yesterday. No worsening shortness of breath. Not much improvement though. chest x-ray shows diffuse bilateral infiltrates consistent with COVID-19 pneumonia. She is continued on Decadron, Lovenox, vitamin supplements. Objective - Vital Signs Vital signs: Vital Signs Temp 98.0 F 06/06/21 14:00 Pulse 84 06/06/21 14:00 Resp 16 06/06/21 14:00 BP 107/67 06/06/21 14:00 Pulse Ox 97 06/06/21 14:00 Intake & Output 06/05/21 06/06/21 06/06/21 18:59 06:59 18:59 Intake Total 532 Balance 532 Intake: Oral 532 Other: # Voids 2 3 4 - Exam Pleasant 55-year-old female patient. Mild respiratory distress, oriented 3. Currently on 15 L nasal cannula. HEENT examination is grossly unremarkable. Neck supple. Full range of motion. No adenopathy thyromegaly or neck vein distention. Cardiovascular examination reveals regular rhythm rate. S1-S2 normal. No S3 or S4. No discernible murmur noted. Lungs reveal bilateral coarse crackles are noted. No wheezes. Abdomen soft bowel sounds are heard. No masses or tenderness. Extremities are intact. No cyanosis clubbing or edema. Skin is without rash or lesion. Neurologic examination is brief but nonfocal. - Labs CBC & Chem 7: 06/05/21 05:26 06/05/21 05:26 Labs: Microbiology - Last 24 Hours (Table) 06/05/21 15:09 Blood Culture - Preliminary Blood No Growth after 24 hours Assessment and Plan Assessment: Acute hypoxemic respiratory failure secondary to coronavirus associated pneumonia. History of hypothyroidism. History of environmental ALLERGIES. Patient is on vaccinated. Plan: The patient was seen and evaluated Still requiring 15 L high flow nasal cannula to maintain O2 saturations in the 90s Continue to titrate the FiO2 as tolerated We will add Baricitinib Continue Decadron, Lovenox, vitamin supplements We will continue to follow I, the cosigning physician, performed a history & physical examination of the patient. Lungs sounds coarse crackles bilaterally. Maintaining O2 saturations in the 90s on 15 L high flow nasal cannula. I discussed the assessment and plan of care with my nurse practitioner, Barbara Sue. I attest to the above note as dictated by her. I have personally seen and examined the patient, performed the documentation and the assessment and plan as written. Number of minutes spent on the visit: 10.
[2021-06-06] MEDS: MONTELUKAST 10 MG TAB PO SCH (20:17)
[2021-06-06] MEDS: BARICITINIB 2 MG TABLET PO SCH (20:17)
[2021-06-06] MEDS: TEMAZEPAM 15 MG CAP PO PRN (20:53)
[2021-06-06 23:32] LABS: C Reactive Protein 9.1 mg/dL (0.00-0.80)
--- NOTE | 2021-06-07 00:43 | P.PN ---
Subjective Progress Note Date: 06/06/21 06/05/2021 This is a 55 year old female who was admitted with increasing shortness of breath and cough with congestion and is being closely monitored. Pulmonary following. Patient was positive for Covid 19 on Feb 4 and also positive here on ED admission. Patient is not vaccinated. Patient continues with shortness of breath and cough. Patient requiring more oxygen and currently on 15L HF NC and was 6L this am. Patient maintained on lovenox, oral dexamethasone, vitamins and zinc and will continue. Procalcitonin and chest xray ordered and pending. 06/06/2021 Patient is seen in follow up today and continues on 15L via HF NC and denies any worsening of the shortness of breath. Patient states she feels fatigued and not sleeping well and will order sleep aid. Patient continues on oral dexamethasone, vitamin and zinc supplements, and lovenox and being started on Baricitinib with pulmonary following closely. Patient to continue with proning and lateral position laying and also encouraged incentive spirometer. Encouraged activity as tolerated. Wean FI02 as tolerated. Review of systems: Constitutional: reports of fatigue, no reports of fever, or chills Cardiovascular: No reports of chest pain or palpitations Respiratory: reports of continued shortness of breath and cough, with no worsening GI: No reports of nausea, vomiting, or diarrhea : No reports of dysuria or retention Neurovascular: reports of generalized weakness All medications have been reviewed Active Medications Acetaminophen (Acetaminophen Tab 325 Mg Tab) 650 mg PO Q6HR PRN PRN Reason: Fever and/ or Mild Pain Last Admin: 06/05/21 03:32 Dose: 650 mg Documented by: Albuterol Sulfate (Albuterol Hfa Inhaler) 2 puff INHALATION RT-TID [facility] Last Admin: 06/06/21 20:30 Dose: 2 puff Documented by: Albuterol Sulfate (Albuterol Hfa Inhaler) 2 puff INHALATION RT-TID PRN PRN Reason: Shortness Of Breath Or Wheezing Ascorbic Acid (Ascorbic Acid 500 Mg Tab) 1,000 mg PO DAILY [facility] Last Admin: 06/06/21 08:41 Dose: 1,000 mg Documented by: Baricitinib (Baricitinib 2 Mg Tablet) 4 mg PO Q24H [facility] Stop: 06/19/21 19:01 Last Admin: 06/06/21 20:17 Dose: 4 mg Documented by: Cholecalciferol (Cholecalciferol 125 Mcg (5000 Iu) Tablet) 125 mcg PO DAILY [facility] Last Admin: 06/06/21 08:42 Dose: 125 mcg Documented by: Dexamethasone (Dexamethasone 2 Mg Tab) 6 mg PO DAILY [facility] Last Admin: 06/06/21 08:42 Dose: 6 mg Documented by: Enoxaparin Sodium (Enoxaparin 40 Mg/0.4 Ml Syringe) 40 mg SQ DAILY [facility] Last Admin: 06/06/21 08:42 Dose: 40 mg Documented by: Guaifenesin/Dextromethorphan (Guaifenesin-Dm 100-10mg/5ml 10 Ml Cup) 5 ml PO Q4HR PRN PRN Reason: Cough Last Admin: 06/05/21 22:17 Dose: 5 ml Documented by: Levothyroxine Sodium (Levothyroxine 25 Mcg Tab) 25 mcg PO DAILY@0630 [facility] Last Admin: 06/06/21 05:36 Dose: 25 mcg Documented by: Montelukast Sodium (Montelukast 10 Mg Tab) 10 mg PO HS [facility] Last Admin: 06/06/21 20:17 Dose: 10 mg Documented by: Multivitamins (Multivitamins, Thera 1 Each Tab) 1 each PO DAILY@1200 [facility] Last Admin: 06/06/21 08:42 Dose: 1 each Documented by: Non-Formulary Medication (Beclomethasone Dipropionate [Qnasl Children]) 2 spray EA NOSTRIL DAILY [facility] Last Admin: 06/06/21 08:31 Dose: Not Given Documented by: Pantoprazole Sodium (Pantoprazole 40 Mg Tablet) 40 mg PO -BRKFST [facility] Last Admin: 06/06/21 08:41 Dose: 40 mg Documented by: Temazepam (Temazepam 15 Mg Cap) 15 mg PO HS PRN PRN Reason: Insomnia Last Admin: 06/06/21 20:53 Dose: 15 mg Documented by: Zinc Sulfate (Zinc Sulfate 220 Mg Cap) 220 mg PO DAILY [facility] Last Admin: 06/06/21 08:42 Dose: 220 mg Documented by: PHYSICAL EXAMINATION: GENERAL: The patient is alert and oriented, well developed, well nourished. currently on 15L HF HEENT: Pupils are round and equally reacting to light. EOMI. does have scleral icterus. No conjunctival pallor. Normocephalic, atraumatic. No pharyngeal erythema. No thyromegaly. CARDIOVASCULAR: S1 and S2 muffled PULMONARY: diminished breath sounds bilaterally with Few scattered coarse rhonchi noted. ABDOMEN: soft. non-tender. Non-distended, normoactive bowel sounds. No palpable organomegaly. MUSCULOSKELETAL: No joint swelling or deformity. EXTREMITIES: No cyanosis, clubbing, or pedal edema. NEUROLOGICAL: Gross neurological examination did not reveal any focal deficits. SKIN: No rashes. Assessment: Acute covid 19 infection with bilateral interstitial pneumonia with acute hypoxic respiratory failure Elevated liver function tests, possibly secondary to covid 19 hypothyroidism elevated d-dimer with no evidence of PE on CT dvt prophylaxis GI prophylaxis Full code Plan: Recommend to continue with current medications and symptomatic treatment. Patient continues with shortness of breath and maintained on 15L HF Pulmonary following. Patient being started on Baricitinib. Patient continues on lovenox, vitamin and zinc supplements and oral dexamethasone. Encouraged incentive spirometer use and increased activity as tolerated. Repeat labs ordered. Due to multiple complex medical issues, prognosis is guarded. The impression and plan of care has been dictated by Monica Rodriguez, nurse practitioner as directed. MD Dwight I have performed a history and examination and MDM of this patient, discussed the same with the dictator, and agree with the dictator's assessment and plan as written ,documented as a scribe. Based on total visit time, I have performed more than 50% of the visit. Any additional findings or plans will be noted. Objective - Vital Signs Vital signs: Vital Signs Temp 98.1 F 06/06/21 05:40 Pulse 76 06/06/21 05:40 Resp 20 06/06/21 05:40 BP 107/69 06/06/21 05:40 Pulse Ox 89 L 06/06/21 05:40 Intake & Output 06/05/21 06/06/21 06/06/21 18:59 06:59 18:59 Intake Total 532 Balance 532 Intake: Oral 532 Other: # Voids 2 3 - Labs CBC & Chem 7: 06/05/21 05:26 06/05/21 05:26 Labs: Abnormal Lab Results - Last 24 Hours (Table) 06/05/21 06/05/21 Range/Units 05:26 15:45 Procalcitonin 0.33 H (0.02-0.09) ng/mL Urine Protein Trace H (Negative)
[2021-06-07] MEDS: LEVOTHYROXINE 25 MCG TAB PO SCH (05:41)
[2021-06-07 05:56] LABS: Basophils % (A) 0 %; Eosinophils % (A) 0 %; HCT 29.6 % (34.0-46.0); Hypochromasia Slight; Lymphocytes # (A) 1.7 k/uL (1.0-4.8); Lymphocytes % (A) 13 %; MCH 28.5 pg (25.0-35.0); MCHC 31.8 g/dL (31.0-37.0); MCV 89.7 fL (80.0-100.0); Monocytes # (A) 0.5 k/uL (0-1.0); Monocytes % (A) 4 %; Neutrophils # (A) 10.6 k/uL (1.3-7.7); Neutrophils % (A) 81 %; Platelet Count 274 k/uL (150-450); RDW 15.1 % (11.5-15.5); WBC 13.1 k/uL (3.8-10.6)
[2021-06-07 06:02] LABS: HGB 9.4 gm/dL (11.4-16.0)
[2021-06-07 06:04] LABS: African American GFR (CKD) >90 (>60 ml/min/1.73 sqM); Anion Gap 5 mmol/L; Blood Urea Nitrogen 19 mg/dL (7-17); Calcium 7.8 mg/dL (8.4-10.2); Carbon Dioxide 26 mmol/L (22-30); Chloride 105 mmol/L (98-107); Glucose 82 mg/dL (74-99); Non-African American GFR(CKD) >90 (>60 ml/min/1.73 sqM); Potassium 3.7 mmol/L (3.5-5.1); Sodium 136 mmol/L (137-145)
[2021-06-07] MEDS: BECLOMETHASONE DIPROPIONATE EA NOSTRIL SCH (07:36)
[2021-06-07] MEDS: ASCORBIC ACID 500 MG TAB PO SCH (07:46)
[2021-06-07] MEDS: MULTIVITAMINS, THERA 1 EACH TAB PO SCH (07:46)
[2021-06-07] MEDS: CHOLECALCIFEROL 125 MCG (5000 IU) TABLET PO SCH (07:46)
[2021-06-07] MEDS: ZINC SULFATE 220 MG CAP PO SCH (07:46)
[2021-06-07] MEDS: dexAMETHasone 2 MG TAB PO SCH (07:47)
[2021-06-07] MEDS: PANTOPRAZOLE 40 MG TABLET PO SCH (07:47)
[2021-06-07] MEDS: ENOXAPARIN 40 MG/0.4 ML SYRINGE SQ SCH (07:47)
[2021-06-07] MEDS: ALBUTEROL HFA INHALER INHALATION SCH ×3 (08:35→21:06)
[2021-06-07] MEDS: ACETAMINOPHEN TAB 325 MG TAB PO PRN ×2 (11:41→20:09)
--- NOTE | 2021-06-07 15:56 | P.PN ---
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 The patient apparently has not been feeling well for at least a couple weeks. She apparently tested positive for coronavirus back on May 23. Early on, she mostly had nasal congestion and drainage. More recently, she's been feeling worse, but she over the last 4 or 5 days. She apparently started having difficulty breathing over the weekend, her home pulse ox saturation was only 79%. She had fever and chills. For that reason, she came to the emergency room to be evaluated was minute with a diagnosis of hypoxemic respiratory failure secondary to coronavirus associated pneumonia. The patient is on vaccinated. She has no significant past medical history save for ALLERGIES, and hypothyroidism.. She does not use tobacco products. Her family doctor is Dr. Lopes. Currently, she is on 4 L nasal cannula. She's not receiving any IV fluids. Her white count was 11.3, hemoglobin 12.1, hematocrit 37.3, platelet count 374,000. D-dimer was 9.45. Sodium was 136. The rest of the electrolyte profile looks good. Calcium 8.1 bilirubin 1.6 AST 77 ALT 88 and albumin 2.6. Testing here for coronavirus was positive. Chest x- ray shows diffuse bilateral infiltrates. CAT scan was negative for pulmonary embolism but did reveal significant bilateral groundglass opacities. The patient is seen today 06/05/2021 in follow-up on the regular medical floor. She is currently resting comfortably in bed. Awake and alert in no acute distress. She is still coughing. She still is congested. She is requiring 6 L high flow nasal cannula now to maintain O2 saturation the high 80s low 90s. No fever or chills. No hemoptysis. She is currently on Decadron, Lovenox, vitamin supplements. White count 12.3. Hemoglobin 9.8. Lymphocytes 0.7. Sodium 140. Potassium 3.5. Creatinine 0.6. Glucose 120. The patient is seen today 06/06/2021 in follow-up on the regular medical floor. She is awake and alert in no acute distress. She is requiring 15 L high flow nasal cannula to maintain O2 saturations in the high 80s low 90s. She is doing about the same compared to yesterday. No worsening shortness of breath. Not much improvement though. chest x-ray shows diffuse bilateral infiltrates consistent with COVID-19 pneumonia. She is continued on Decadron, Lovenox, vitamin supplements. The patient is seen today 06/07/2021 follow-up on the regular medical floor. She is currently sitting up in a chair at the bedside. Awake and alert in no acute distress. Doing about the same today compared to yesterday. No worse. May be slightly better. She is requiring 13 L high flow nasal cannula to maintain O2 saturations at 91%. She was initiated on Baricitinib. She is continued on Decadron, Lovenox and vitamin supplements. Remains on Symbicort a nd albuterol. White count 13.1. Hemoglobin 9.4. Sodium 136. Potassium 3.7. Creatinine 0.66. LDH 524. C-reactive protein 9.1. Objective - Vital Signs Vital signs: Vital Signs Temp 97.6 F 06/07/21 14:00 Pulse 77 06/07/21 14:00 Resp 16 06/07/21 14:00 BP 122/76 06/07/21 14:00 Pulse Ox 94 L 06/07/21 14:00 Intake & Output 06/06/21 06/07/21 06/07/21 18:59 06:59 18:59 Intake Total 296 Balance 296 Intake: Oral 296 Other: # Voids 4 4 - Exam GENERAL EXAM: Alert, very pleasant 55-year-old female, up in a chair at the bedside, on 13 L high flow nasal cannula comfortable in no apparent distress. HEAD: Normocephalic. EYES: Normal reaction of pupils, equal size. NOSE: Clear with pink turbinates. THROAT: No erythema or exudates. NECK: No masses, no JVD. CHEST: No chest wall deformity. LUNGS: Equal air entry with coarse crackles in the posterior bases. CVS: S1 and S2 normal with no audible murmur, regular rhythm. ABDOMEN: No hepatosplenomegaly, normal bowel sounds, no guarding or rigidity. SPINE: No scoliosis or deformity SKIN: No rashes CENTRAL NERVOUS SYSTEM: No focal deficits, tone is normal in all 4 extremities. EXTREMITIES: There is no peripheral edema. No clubbing, no cyanosis. Peripheral pulses are intact. - Labs CBC & Chem 7: 06/07/21 04:30 06/07/21 04:30 Labs: Abnormal Lab Results - Last 24 Hours (Table) 06/06/21 06/07/21 06/07/21 Range/Units 16:34 04:30 04:30 WBC 13.1 H (3.8-10.6) k/uL RBC 3.30 L (3.80-5.40) m/uL Hgb 9.4 L D (11.4-16.0) gm/dL Hct 29.6 L (34.0-46.0) % Neutrophils # 10.6 H (1.3-7.7) k/uL Sodium 136 L (137-145) mmol/L BUN 19 H (7-17) mg/dL Calcium 7.8 L (8.4-10.2) mg/dL Lactate Dehydrogenase 524 H (120-246) U/L C-Reactive Protein 9.10 H (0.00-0.80) mg/dL Microbiology - Last 24 Hours (Table) 06/05/21 15:09 Blood Culture - Preliminary Blood No Growth after 24 hours Assessment and Plan Assessment: 1 Acute hypoxemic respiratory failure secondary to coronavirus associated pneumonia. Outside the window for Remdesivir. Initiated on Baricitinib 06/06/2021 2 History of hypothyroidism. 3 History of environmental ALLERGIES. 4 Patient is unvaccinated. Plan: The patient was seen and evaluated On 13 L high flow nasal cannula to maintain O2 saturations in the 90s Continue to titrate the FiO2 as tolerated We added Baricitinib yesterday Continue Decadron, Lovenox, vitamin supplements Encouraged to prone and switch positions while in bed Up in the chair as much as possible Continue to work with the incentive spirometer We will continue to follow I, the cosigning physician, performed a history & physical examination of the patient. Lungs sounds coarse crackles bilaterally. Maintaining O2 saturations in the 90s on 13 L high flow nasal cannula. I discussed the assessment and plan of care with my nurse practitioner, Barbara Sue. I attest to the above note as dictated by her. I have personally seen and examined the patient, performed the documentation and the assessment and plan as written. Number of minutes spent on the visit: 10.
[2021-06-07] MEDS: MONTELUKAST 10 MG TAB PO SCH (20:09)
[2021-06-07] MEDS: TEMAZEPAM 15 MG CAP PO PRN (20:09)
[2021-06-07] MEDS: BARICITINIB 2 MG TABLET PO SCH (20:10)
--- NOTE | 2021-06-07 20:49 | P.PN ---
Subjective Progress Note Date: 06/07/21 55 year old female who was admitted with increasing shortness of breath and cough with congestion and is being closely monitored. Pulmonary following. Patient was positive for Covid 19 on Feb 4 and also positive here on ED admission. Patient is not vaccinated. Patient continues with shortness of breath and cough. Patient requiring more oxygen and currently on 15L HF NC and was 6L this am. Patient maintained on lovenox, oral dexamethasone, vitamins and zinc and will continue. Procalcitonin and chest xray ordered and pending. 06/07/2021 Patient is seen and evaluated at bedside for follow-up on the regular medical floor. She is currently sitting up in a chair at the bedside. Awake and alert in no acute distress. Doing about the same today compared to yesterday. She is requiring 13 L high flow nasal cannula to maintain O2 saturations at 91%. She was initiated on Baricitinib. She is continued on Decadron, Lovenox and vitamin supplements. Remains on Symbicort and albuterol. White count 13.1. Hemoglobin 9.4. Sodium 136. Potassium 3.7. Creatinine 0.66. LDH 524. C- reactive protein 9.1. Plan is to continue to titrate FiO2 as tolerated; self proning is encouraged; continue with incentive spirometry Objective - Vital Signs Vital signs: Vital Signs Temp 97.6 F 06/07/21 14:00 Pulse 77 06/07/21 14:00 Resp 16 06/07/21 14:00 BP 122/76 06/07/21 14:00 Pulse Ox 94 L 06/07/21 14:00 Intake & Output 06/06/21 06/07/21 06/07/21 18:59 06:59 18:59 Intake Total 296 Balance 296 Intake: Oral 296 Other: # Voids 4 4 - Exam GENERAL EXAM: Alert, very pleasant 55-year-old female, up in a chair at the bedside, on 13 L high flow nasal cannula comfortable in no apparent distress. HEAD: Normocephalic. NECK: No masses, no JVD. CHEST: No chest wall deformity. LUNGS: Equal air entry with coarse crackles in the posterior bases. CVS: S1 and S2 normal with no audible murmur, regular rhythm. ABDOMEN: No hepatosplenomegaly, normal bowel sounds, no guarding or rigidity. CENTRAL NERVOUS SYSTEM: No focal deficits, tone is normal in all 4 extremities. EXTREMITIES: There is no peripheral edema. No clubbing, no cyanosis. Peripheral pulses are intact. - Labs CBC & Chem 7: 06/07/21 04:30 06/07/21 04:30 Labs: Abnormal Lab Results - Last 24 Hours (Table) 06/06/21 06/07/21 06/07/21 Range/Units 16:34 04:30 04:30 WBC 13.1 H (3.8-10.6) k/uL RBC 3.30 L (3.80-5.40) m/uL Hgb 9.4 L D (11.4-16.0) gm/dL Hct 29.6 L (34.0-46.0) % Neutrophils # 10.6 H (1.3-7.7) k/uL Sodium 136 L (137-145) mmol/L BUN 19 H (7-17) mg/dL Calcium 7.8 L (8.4-10.2) mg/dL Lactate Dehydrogenase 524 H (120-246) U/L C-Reactive Protein 9.10 H (0.00-0.80) mg/dL Microbiology - Last 24 Hours (Table) 06/05/21 15:09 Blood Culture - Preliminary Blood No Growth after 24 hours Assessment and Plan Assessment: Acute covid 19 infection with bilateral interstitial pneumonia with acute hypoxic respiratory failure Elevated liver function tests, possibly secondary to covid 19 hypothyroidism elevated d-dimer with no evidence of PE on CT dvt prophylaxis GI prophylaxis Full code Plan: Recommend to continue with current medications and symptomatic treatment. Patient continues with shortness of breath and maintained on 15L HF Pulmonary following. Patient being started on Baricitinib. Patient continues on lovenox, vitamin and zinc supplements and oral dexamethasone. Encouraged incentive spirometer use and increased activity as tolerated. Repeat labs ordered. Due to multiple complex medical issues, prognosis is guarded.
[2021-06-07] MEDS: SYMBICORT 160-4.5 MCG INHALER INHALATION SCH (21:05)
[2021-06-08] MEDS: LEVOTHYROXINE 25 MCG TAB PO SCH (06:12)
[2021-06-08] MEDS: ZINC SULFATE 220 MG CAP PO SCH (07:21)
[2021-06-08] MEDS: ENOXAPARIN 40 MG/0.4 ML SYRINGE SQ SCH (07:21)
[2021-06-08] MEDS: ASCORBIC ACID 500 MG TAB PO SCH (07:21)
[2021-06-08] MEDS: dexAMETHasone 2 MG TAB PO SCH (07:21)
[2021-06-08] MEDS: MULTIVITAMINS, THERA 1 EACH TAB PO SCH (07:21)
[2021-06-08] MEDS: PANTOPRAZOLE 40 MG TABLET PO SCH (07:21)
[2021-06-08] MEDS: CHOLECALCIFEROL 125 MCG (5000 IU) TABLET PO SCH (07:21)
[2021-06-08] MEDS: BECLOMETHASONE DIPROPIONATE EA NOSTRIL SCH (07:41)
--- NOTE | 2021-06-08 08:00 | XR ---
EXAMINATION TYPE: XR chest 1V portable DATE OF EXAM: 06/08/2021 Comparison: 06/05/2021 Clinical History: 55-year-old female CoVID pneumonia Findings: Heart normal size. Confluent peripheral opacification throughout the left lung and right mid and lowe r lung. Overall appearance is relatively similar to minimally less confluent. No pneumothorax. Impression: Continued bilateral peripheral COVID pneumonia. Overall similar to minimally less confluent.
[2021-06-08] MEDS: ALBUTEROL HFA INHALER INHALATION SCH ×3 (08:38→19:07)
[2021-06-08] MEDS: SYMBICORT 160-4.5 MCG INHALER INHALATION SCH ×2 (08:38→19:07)
[2021-06-08 09:18] LABS: African American GFR (CKD) 118.9 (60.0-200.0); Albumin 2.7 g/dL (3.8-4.9); Anion Gap 11.9 mmol/L (10.00-18.00); BUN/Creat Ratio 18.33 Ratio (12.00-20.00); Carbon Dioxide 24.1 mmol/L (20.0-27.5); Globulin 2.7 g/dL (1.6-3.3); Non-African American GFR(CKD) 102.6 (60.0-200.0); Potassium 3.8 mmol/L (3.5-5.5); Total Bilirubin 0.5 mg/dL (0.30-1.20); Total Protein 5.4 g/dL (6.2-8.2)
[2021-06-08] MEDS: ACETAMINOPHEN TAB 325 MG TAB PO PRN (12:19)
--- NOTE | 2021-06-08 14:35 | P.PN ---
Subjective Progress Note Date: 06/08/21 Principal diagnosis: Acute covid 19 infection with bilateral interstitial pneumonia with acute hypoxic respiratory failure Elevated liver function tests, possibly secondary to covid 19 55 year old female who was admitted with increasing shortness of breath and cough with congestion and is being closely monitored. Pulmonary following. Patient was positive for Covid 19 on Fe 4 and also positive here on ED admission. Patient is not vaccinated. Patient continues with shortness of breath and cough. Patient requiring more oxygen and currently on 15L HF NC and was 6L this am. Patient maintained on lovenox, oral dexamethasone, vitamins and zinc and will continue. Procalcitonin and chest xray ordered and pending. 06/07/2021 Patient is seen and evaluated at bedside for follow-up on the regular medical floor. She is currently sitting up in a chair at the bedside. Awake and alert in no acute distress. Doing about the same today compared to yesterday. She is requiring 13 L high flow nasal cannula to maintain O2 saturations at 91%. She was initiated on Baricitinib. She is continued on Decadron, Lovenox and vitamin supplements. Remains on Symbicort and albuterol. White count 13.1. Hemoglobin 9.4. Sodium 136. Potassium 3.7. Creatinine 0.66. LDH 524. C- reactive protein 9.1. Plan is to continue to titrate FiO2 as tolerated; self proning is encouraged; continue with incentive spirometry 06/08/2021 Patient is seen and evaluated and discussed with nursing staff; sitting up in bedside chair; complains of swelling and pain left lower extremity Vital signs are reviewed; patient remains on O2 at 11 L HFNC with O2 saturation 95%; we will order bilateral lower extremity venous Doppler to rule out PE She was initiated on Baricitinib. She is continued on Decadron, Lovenox and vitamin supplements. Remains on Symbicort and albuterol. Patient remains on subcu Lovenox at 40 mg subcu daily; we will treat to full therapeutic dose if venous Doppler comes back positive Objective - Vital Signs Vital signs: Vital Signs Temp 97.4 F L 06/08/21 05:58 Pulse 79 06/08/21 05:58 Resp 20 06/08/21 05:58 BP 131/72 06/08/21 05:58 Pulse Ox 88 L 06/08/21 05:58 Intake & Output 06/07/21 06/08/21 06/08/21 18:59 06:59 18:59 Intake Total 296 600 Balance 296 600 Intake: Oral 296 600 Other: Voiding Method Toilet # Voids 4 4 - Exam GENERAL EXAM: Alert, very pleasant 55-year-old female, up in a chair at the bedside, on 13 L high flow nasal cannula comfortable in no apparent distress. HEAD: Normocephalic. NECK: No masses, no JVD. CHEST: No chest wall deformity. LUNGS: Equal air entry with coarse crackles in the posterior bases. CVS: S1 and S2 normal with no audible murmur, regular rhythm. ABDOMEN: No hepatosplenomegaly, normal bowel sounds, no guarding or rigidity. CENTRAL NERVOUS SYSTEM: No focal deficits, tone is normal in all 4 extremities. EXTREMITIES: There is no peripheral edema. No clubbing, no cyanosis. Peripheral pulses are intact. - Labs CBC & Chem 7: 06/07/21 04:30 06/08/21 04:44 Labs: Microbiology - Last 24 Hours (Table) 06/05/21 15:09 Blood Culture - Preliminary Blood No Growth after 48 hours Assessment and Plan Assessment: Acute covid 19 infection with bilateral interstitial pneumonia with acute hypoxic respiratory failure Elevated liver function tests, possibly secondary to covid 19 hypothyroidism elevated d-dimer with no evidence of PE on CT dvt prophylaxis GI prophylaxis Full code Plan: Recommend to continue with current medications and symptomatic treatment. Patient continues with shortness of breath and maintained on 15L HF Pulmonary following. Patient being started on Baricitinib. Patient continues on lovenox, vitamin and zinc supplements and oral dexamethasone. Encouraged incentive spi rometer use and increased activity as tolerated. Repeat labs ordered. Due to multiple complex medical issues, prognosis is guarded.
[2021-06-08] MEDS: BARICITINIB 2 MG TABLET PO SCH (14:51)
--- NOTE | 2021-06-08 16:33 | P.PN ---
Subjective Progress Note Date: 06/08/21 Principal diagnosis: Coronavirus associated pneumonia. 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 The patient apparently has not been feeling well for at least a couple weeks. She apparently tested positive for coronavirus back on May 23. Early on, she mostly had nasal congestion and drainage. More recently, she's been feeling worse, but she over the last 4 or 5 days. She apparently started having difficulty breathing over the weekend, her home pulse ox saturation was only 79%. She had fever and chills. For that reason, she came to the emergency room to be evaluated was minute with a diagnosis of hypoxemic respiratory failure secondary to coronavirus associated pneumonia. The patient is on vaccinated. She has no significant past medical history save for ALLERGIES, and hypothyroidism.. She does not use tobacco products. Her family doctor is Dr. Lopes. Currently, she is on 4 L nasal cannula. She's not receiving any IV fluids. Her white count was 11.3, hemoglobin 12.1, hematocrit 37.3, platelet count 374,000. D-dimer was 9.45. Sodium was 136. The rest of the electrolyte profile looks good. Calcium 8.1 bilirubin 1.6 AST 77 ALT 88 and albumin 2.6. Testing here for coronavirus was positive. Chest x- ray shows diffuse bilateral infiltrates. CAT scan was negative for pulmonary embolism but did reveal significant bilateral groundglass opacities. The patient is seen today 06/05/2021 in follow-up on the regular medical floor. She is currently resting comfortably in bed. Awake and alert in no acute distress. She is still coughing. She still is congested. She is requiring 6 L high flow nasal cannula now to maintain O2 saturation the high 80s low 90s. No fever or chills. No hemoptysis. She is currently on Decadron, Lovenox, vitamin supplements. White count 12.3. Hemoglobin 9.8. Lymphocytes 0.7. Sodium 140. Potassium 3.5. Creatinine 0.6. Glucose 120. The patient is seen today 06/06/2021 in follow-up on the regular medical floor. She is awake and alert in no acute distress. She is requiring 15 L high flow nasal cannula to maintain O2 saturations in the high 80s low 90s. She is doing about the same compared to yesterday. No worsening shortness of breath. Not much improvement though. chest x-ray shows diffuse bilateral infiltrates consistent with COVID-19 pneumonia. She is continued on Decadron, Lovenox, vitamin supplements. The patient is seen today 06/07/2021 follow-up on the regular medical floor. She is currently sitting up in a chair at the bedside. Awake and alert in no acute distress. Doing about the same today compared to yesterday. No worse. May be slightly better. She is requiring 13 L high flow nasal cannula to maintain O2 saturations at 91%. She was initiated on Baricitinib. She is continued on Decadron, Lovenox and vitamin supplements. Remains on Symbicort and albuterol. White count 13.1. Hemoglobin 9.4. Sodium 136. Potassium 3.7. Creatinine 0.66. LDH 524. C-reactive protein 9.1. Progress note dated 06/08/2021. The patient is again seen in room 472. She's now been in the hospital for 4 days. She's not receiving any IV fluids. Her chest x-ray slightly better. She's feeling slightly better. Her oxygen has been weaned down to 10 L high flow. The patient is complaining of some cramping in her lower extremities. Dopplers of the lower extremities have been ordered. Sodium 140, potassium 3.8, chlorides 104, CO2 24, anion gap 12, BUN 11, creatinine 0.6. ALT is 51 alkaline phosphatase 131. Most recent pro-calcitonin is 0.33. Urine is negative. Chest x-ray shows bilateral infiltrates, with mild improvement. Dopplers have been done but not officially interpreted as yet. Objective - Vital Signs Vital signs: Vital Signs Temp 97.7 F 06/08/21 14:05 Pulse 84 06/08/21 14:05 Resp 18 06/08/21 14:05 BP 116/76 06/08/21 14:05 Pulse Ox 93 L 06/08/21 14:05 Intake & Output 06/07/21 06/08/21 06/08/21 18:59 06:59 18:59 Intake Total 296 600 Balance 296 600 Intake: Oral 296 600 Other: Voiding Method Toilet # Voids 4 4 - Exam No acute distress, oriented 3. Currently on 10 L high flow nasal O2. Saturations are 93%. HEENT examination is grossly unremarkable. Neck supple. Full range of motion. No adenopathy thyromegaly or neck vein distention. Cardiovascular examination reveals regular rhythm rate. S1-S2 normal. No S3 or S4. No discernible murmur noted. Heart rate 84 bpm. Heart sounds are distant. Lungs reveal coarse bilateral rhonchi and bibasilar crackles. Breath sounds are equal bilaterally. Saturations are 93% on 10 L high flow nasal O2. No wheezes are noted. Abdomen soft bowel sounds are heard. No masses or tenderness. Extremities are intact. No cyanosis clubbing or edema. Skin is without rash or lesion. Neurologic examination is brief but nonfocal. - Labs CBC & Chem 7: 06/07/21 04:30 06/08/21 04:44 Labs: Abnormal Lab Results - Last 24 Hours (Table) 06/08/21 Range/Units 04:44 Calcium 8.0 L (8.7-10.3) mg/dL ALT 51 H (8-44) U/L Alkaline Phosphatase 131 H (41-126) U/L Total Protein 5.4 L (6.2-8.2) g/dL Albumin 2.7 L (3.8-4.9) g/dL Albumin/Globulin Ratio 1.00 L (1.60-3.17) g/dL Microbiology - Last 24 Hours (Table) 06/05/21 15:09 Blood Culture - Preliminary Blood No Growth after 48 hours Assessment and Plan Assessment: Acute hypoxemic respiratory failure secondary to coronavirus associated pneumonia. History of hypothyroidism. History of environmental ALLERGIES. Patient is un-vaccinated. Plan: Plan dated 06/04/2021. The patient started having symptoms way back on May 23. She is not a candidate for REM. She's currently not sick enough to receive a monoclonal antibody against interleukin-6. Labs, x-rays, and medications are all reviewed. The patient should get Decadron, Lovenox, and vitamins. Additional recommendations and suggestions are forthcoming. The patient may end up deteriorating, and require additional oxygenation. Prognosis is guarded. We will continue to follow make recommendations where appropriate. Plan dated 06/08/2021. The patient's chest x-ray slightly improved. The patient is receiving DEVON. The patient is on O2 at 10 L high flow. That is an improvement. The patient will have Dopplers of the lower extremities to rule out DVT. She remains on Decadron, Lovenox, and C, and the D3, and zinc. We will continue to follow make recommendations where appropriate. Prognosis is certainly guarded. Time with Patient: Less than 30
--- NOTE | 2021-06-08 16:44 | US ---
EXAMINATION TYPE: US venous doppler duplex LE DATE OF EXAM: 06/08/2021 2:07 PM COMPARISON: NONE CLINICAL HISTORY: rule out DVT. Bilateral leg pain for the past 2 days SIDE PERFORMED: Bilateral TECHNIQUE: The lower extremity deep venous system is examined utilizing real time linear array sonog kandy with graded compression, doppler sonography and color-flow sonography. VESSELS IMAGED: Common Femoral Vein Deep Femoral Vein Greater Saphenous Vein * Femoral Vein Popliteal Vein Small Saphenous Vein * Proximal Calf Veins (* superficial vessels) Right Leg: Negative for DVT Left Leg: Positive for DVT Thrombus of the left peroneal veins IMPRESSION: No evidence of deep vein thrombosis in the right leg. In the left leg there is limited acute deep vein thrombosis in the peroneal vein of the calf.
[2021-06-08] MEDS ORDERED: HEPARIN SODIUM 1,000 UN/ML (10ML VL) IV ONE (16:55)
[2021-06-08] MEDS: HEPARIN SOD,PORK IN 0.45% NACL 25,000 UNIT in 0.45% NACL 1 250ML.BAG IV SCH (17:28)
[2021-06-08 18:55] LABS: Basophils % (A) 0 %; Eosinophils % (A) 0 %; HGB 11.6 gm/dL (11.4-16.0); Hypochromasia Slight; Lymphocytes # (A) 1.2 k/uL (1.0-4.8); Lymphocytes % (A) 11 %; MCH 29.2 pg (25.0-35.0); MCHC 32.3 g/dL (31.0-37.0); MCV 90.5 fL (80.0-100.0); Mean Platelet Volume 8.5; Monocytes # (A) 0.4 k/uL (0-1.0); Monocytes % (A) 4 %; Neutrophils # (A) 9.2 k/uL (1.3-7.7); Neutrophils % (A) 84 %; Platelet Count 337 k/uL (150-450); RBC 3.98 m/uL (3.80-5.40); RDW 15.6 % (11.5-15.5)
[2021-06-08 19:15] LABS: INR 1.1 (<1.2); Partial Thromboplastin Time 99.5 sec (22.0-30.0); Prothrombin Time 11.8 sec (9.0-12.0)
[2021-06-08] MEDS: guaiFENesin-DM 100-10MG/5ML 10 ML CUP PO PRN (20:19)
[2021-06-08] MEDS: MONTELUKAST 10 MG TAB PO SCH (20:19)
[2021-06-09] MEDS: ALBUTEROL HFA INHALER INHALATION PRN (03:56)
[2021-06-09] MEDS: LEVOTHYROXINE 25 MCG TAB PO SCH (05:47)
[2021-06-09] MEDS: dexAMETHasone 2 MG TAB PO SCH (07:09)
[2021-06-09] MEDS: CHOLECALCIFEROL 125 MCG (5000 IU) TABLET PO SCH (07:09)
[2021-06-09] MEDS: ZINC SULFATE 220 MG CAP PO SCH (07:09)
[2021-06-09] MEDS: PANTOPRAZOLE 40 MG TABLET PO SCH (07:09)
[2021-06-09] MEDS: ASCORBIC ACID 500 MG TAB PO SCH (07:09)
[2021-06-09] MEDS: SYMBICORT 160-4.5 MCG INHALER INHALATION SCH ×2 (08:36→20:10)
[2021-06-09] MEDS: ALBUTEROL HFA INHALER INHALATION SCH ×3 (08:36→20:10)
[2021-06-09 10:12] LABS: Basophils # (A) 0.05 X 10*3/uL (0.00-0.10); Basophils % (A) 0.4 %; Eosinophils % (A) 0.7 %; HGB 10.8 g/dL (12.0-15.0); Immature Grans, Automated 3.4 %; Lymphocytes # (A) 2.62 X 10*3/uL (0.90-5.00); Lymphocytes % (A) 18.5 %; MCH 27.6 pg (27.0-32.0); MCHC 30.9 g/dL (32.0-37.0); MCV 89.3 fL (80.0-97.0); Mean Platelet Volume 10.3 fL (9.5-12.2); Monocytes # (A) 0.71 X 10*3/uL (0.20-1.00); NRBC Per 100 WBC 0 /100 WBCS (0.0-0.0); Neutrophils # (A) 10.21 X 10*3/uL (1.80-7.70); Platelet Count 306 X 10*3/uL (140-440); RBC 3.92 X 10*6/uL (4.10-5.20); WBC 14.17 X 10*3/uL (4.50-10.00)
[2021-06-09] MEDS: HEPARIN SOD,PORK IN 0.45% NACL 25,000 UNIT in 0.45% NACL 1 250ML.BAG IV SCH (10:16)
[2021-06-09] MEDS: BECLOMETHASONE DIPROPIONATE EA NOSTRIL SCH (10:26)
[2021-06-09] MEDS ORDERED: TEMAZEPAM 30 MG CAP PO PRN (11:30)
[2021-06-09] MEDS: MULTIVITAMINS, THERA 1 EACH TAB PO SCH (12:14)
--- NOTE | 2021-06-09 12:35 | P.PN ---
Subjective Progress Note Date: 06/09/21 Principal diagnosis: Shortness of breath On 9 06/09/2021 patient seen in follow-up on medical surgical floor. Patient is satting 92% on 15 L, but she is short of breath at rest and with any exertion. She has a dry nonproductive cough, no complaint of chest discomfort. She remains on Baricitinib 4 mg daily which was started on 06/08/2021. She remains on Symbicort, and albuterol, she is on Decadron 6 mg daily. Her lower extremity Doppler revealed acute left lower leg DVT. She was started on heparin infusion. Today's labs have been reviewed today's white cell count is 14.17, hemoglobin is 10.8. Objective - Vital Signs Vital signs: Vital Signs Temp 97.5 F L 06/09/21 10:05 Pulse 91 06/09/21 10:05 Resp 20 06/09/21 06:00 BP 129/75 06/09/21 10:05 Pulse Ox 92 L 06/09/21 10:05 Intake & Output 06/08/21 06/09/21 06/09/21 18:59 06:59 18:59 Intake Total 1900.066 423.624 Balance 1900.066 423.624 Intake: Intake, IV Titration 100.066 127.624 Amount Heparin Sod,Pork in 0.45% 100.066 127.624 NaCl 25,000 unit In 0.45 % NaCl 1 250ml.bag @ 18 UNITS/KG/HR 13.553 mls/hr IV .[id number] [facility] Rx#: [id number] Oral 1800 296 Other: # Voids 3 3 - Exam GENERAL EXAM: Alert, 55-year-old white female, with conversational dyspnea, currently on 15 L of oxygen and pulse ox of 92% comfortable in no apparent distress. HEAD: Normocephalic/atraumatic. EYES: Normal reaction of pupils, equal size. Conjunctiva pink, sclera white. NOSE: Clear with pink turbinates. THROAT: No erythema or exudates. NECK: No masses, no JVD, no thyroid enlargement, no adenopathy. CHEST: No chest wall deformity. Symmetrical expansion. LUNGS: Equal air entry with a few scattered crackles bilaterally CVS: Regular rate and rhythm, normal S1 and S2, no gallops, no murmurs, no rubs ABDOMEN: Soft, nontender. No hepatosplenomegaly, normal bowel sounds, no guarding or rigidity. EXTREMITIES: No clubbing, no edema, no cyanosis, 2+ pulses and upper and lower extremities. MUSCULOSKELETAL: Muscle strength and tone normal. SPINE: No scoliosis or deformity SKIN: No rashes CENTRAL NERVOUS SYSTEM: Alert and oriented -3. No focal deficits, tone is normal in all 4 extremities. PSYCHIATRIC: Alert and oriented -3. Appropriate affect. Intact judgment and insight. - Labs CBC & Chem 7: 06/09/21 05:23 06/08/21 04:44 Labs: Abnormal Lab Results - Last 24 Hours (Table) 06/08/21 06/08/21 06/08/21 Range/Units 18:08 18:08 23:35 WBC 11.0 H (3.8-10.6) k/uL RBC (4.10-5.20) X 10*6/uL Hgb (12.0-15.0) g/dL Hct (37.2-46.3) % MCHC (32.0-37.0) g/dL RDW 15.6 H (11.5-15.5) % Immature Gran # (0.00-0.04) X 10*3/uL Neutrophils # 9.2 H (1.3-7.7) k/uL APTT 99.5 H 46.6 H (22.0-30.0) sec 06/09/21 Range/Units 05:23 WBC 14.17 H (3.8-10.6) k/uL RBC 3.92 L (4.10-5.20) X 10*6/uL Hgb 10.8 L (12.0-15.0) g/dL Hct 35.0 L (37.2-46.3) % MCHC 30.9 L (32.0-37.0) g/dL RDW 16.0 H (11.5-15.5) % Immature Gran # 0.48 H (0.00-0.04) X 10*3/uL Neutrophils # 10.21 H (1.3-7.7) k/uL APTT (22.0-30.0) sec Microbiology - Last 24 Hours (Table) 06/05/21 15:09 Blood Culture - Preliminary Blood No Growth after 72 hours Assessment and Plan Plan: Assessment: #1. Acute hypoxic respiratory failure secondary to COVID-19 related pneumonia. At the time of presentation patient was already on high flow oxygen, she was outside the window for Remdesivir. She reports almost too week's worth of symptoms prior to presentation. She is not vaccinated against COVID-19. Patient's hypoxia has progressed, she is currently on 15 L per high flow nasal cannula, she was started on Baricitinib on 06/08/2021 #2. Acute left lower leg DVT, patient has been started on heparin infusion #3. Elevated inflammatory markers related to acute COVID-19 pneumonia #4. Elevated liver enzymes related to viral pneumonia #5. Hypothyroidism Plan: Continue current medical treatment Continue Decadron, continue Baricitinib Continue multivitamins, Patient has been started on heparin infusion for acute left lower leg DVT This can be switched to oral anticoagulation We'll continue supportive treatment, and monitor for any worsening dyspnea or hypoxia Titrate FiO2 to keep O2 sats ration is at or above 90% Follow-up chest x-ray inflammatory markers tomorrow I performed a history & physical examination of the patient and discussed their management with my nurse practitioner, Meli Peguero. I reviewed the nurse practitioner's note and agree with the documented findings and plan of care. Lung sounds are positive for scattered rales throughout the lung abldwin. The fi ndings and the impression was discussed with the patient. I attest to the documentation by the nurse practitioner. Time with Patient: Less than 30
[2021-06-09] MEDS: BARICITINIB 2 MG TABLET PO SCH (14:09)
--- NOTE | 2021-06-09 14:27 | P.PN ---
Subjective Progress Note Date: 06/09/21 06/05/2021 This is a 55 year old female who was admitted with increasing shortness of breath and cough with congestion and is being closely monitored. Pulmonary following. Patient was positive for Covid 19 on Feb 4 and also positive here on ED admission. Patient is not vaccinated. Patient continues with shortness of breath and cough. Patient requiring more oxygen and currently on 15L HF NC and was 6L this am. Patient maintained on lovenox, oral dexamethasone, vitamins and zinc and will continue. Procalcitonin and chest xray ordered and pending. 06/06/2021 Patient is seen in follow up today and continues on 15L via HF NC and denies any worsening of the shortness of breath. Patient states she feels fatigued and not sleeping well and will order sleep aid. Patient continues on oral dexamethasone, vitamin and zinc supplements, and lovenox and being started on Baricitinib with pulmonary following closely. Patient to continue with proning and lateral position laying and also encouraged incentive spirometer. Encouraged activity as tolerated. Wean FI02 as tolerated. 06/07/2021 Patient is seen and evaluated at bedside for follow-up on the regular medical floor. She is currently sitting up in a chair at the bedside. Awake and alert in no acute distress. Doing about the same today compared to yesterday. She is requiring 13 L high flow nasal cannula to maintain O2 saturations at 91%. She was initiated on Baricitinib. She is continued on Decadron, Lovenox and vitamin supplements. Remains on Symbicort and albuterol. White count 13.1. Hemoglobin 9.4. Sodium 136. Potassium 3.7. Creatinine 0.66. LDH 524. C- reactive protein 9.1. Plan is to continue to titrate FiO2 as tolerated; self proning is encouraged; continue with incentive spirometry 06/08/2021 Patient is seen and evaluated and discussed with nursing staff; sitting up in bedside chair; complains of swelling and pain left lower extremity Vital signs are reviewed; patient remains on O2 at 11 L HFNC with O2 saturation 95%; we will order bilateral lower extremity venous Doppler to rule out PE She was initiated on Baricitinib. She is continued on Decadron, Lovenox and vitamin supplements. Remains on Symbicort and albuterol. Patient remains on subcu Lovenox at 40 mg subcu daily; we will treat to full therapeutic dose if venous Doppler comes back positive 06/09/2021 Patient is seen in follow-up this morning continues on high flow nasal cannula and currently back up to 11 L high flow as patient was on 9 L although oxygen saturations not maintained above 89%. Pulmonary circular head saw operator following. Patient continues on subcutaneous Lovenox and did have some leg pain and underwent venous Doppler study which shows no evidence of DVT in the right leg although in the left there is a limited acute deep vein thrombosis in the peroneal vein of the calf and Lovenox was discontinued and patient was placed on IV heparin drip. Patient also continues on vitamin and zinc supplements along with oral dexamethasone and will continue. Encouraged incentive spirometer at least 10 times every hour while awake and increased activity as tolerated. Encourage the patient to avoid sleeping throughout the day and will add Restoril for night. She also continues on Baricitinib and will continue. Will order chest x-ray for the a.m. We'll also verify coverage of oral anticoagulant to transition off IV heparin. Patient denies chest pain or palpitations. Patient is afebrile. Patient denies worsening shortness of breath. Review of systems: Constitutional: reports of fatigue, no reports of fever, or chills Cardiovascular: No reports of chest pain or palpitations Respiratory: reports of continued shortness of breath and cough, with no worsening GI: No reports of nausea, vomiting, or diarrhea : No reports of dysuria or retention Neurovascular: reports of generalized weakness All medications have been reviewed Active Medications Acetaminophen (Acetaminophen Tab 325 Mg Tab) 650 mg PO Q6HR PRN PRN Reason: Fever and/ or Mild Pain Last Admin: 06/08/21 12:19 Dose: 650 mg Documented by: Albuterol Sulfate (Albuterol Hfa Inhaler) 2 puff INHALATION RT-TID [facility] Last Admin: 06/09/21 12:27 Dose: 2 puff Documented by: Albuterol Sulfate (Albuterol Hfa Inhaler) 2 puff INHALATION RT-TID PRN PRN Reason: Shortness Of Breath Or Wheezing Last Admin: 06/09/21 03:56 Dose: 2 puff Documented by: Ascorbic Acid (Ascorbic Acid 500 Mg Tab) 1,000 mg PO DAILY [facility] Last Admin: 06/09/21 07:09 Dose: 1,000 mg Documented by: Baricitinib (Baricitinib 2 Mg Tablet) 4 mg PO Q24H [facility] Stop: 06/19/21 14:01 Last Admin: 06/09/21 14:09 Dose: 4 mg Documented by: Budesonide/Formoterol Fumarate (Symbicort 160-4.5 Mcg Inhaler) 2 puff INHALATION RT-BID [facility] Last Admin: 06/09/21 08:36 Dose: 2 puff Documented by: Cholecalciferol (Cholecalciferol 125 Mcg (5000 Iu) Tablet) 125 mcg PO DAILY [facility] Last Admin: 06/09/21 07:09 Dose: 125 mcg Documented by: Dexamethasone (Dexamethasone 2 Mg Tab) 6 mg PO DAILY [facility] Last Admin: 06/09/21 07:09 Dose: 6 mg Documented by: Guaifenesin/Dextromethorphan (Guaifenesin-Dm 100-10mg/5ml 10 Ml Cup) 5 ml PO Q4HR PRN PRN Reason: Cough Last Admin: 06/08/21 20:19 Dose: 5 ml Documented by: Heparin Sodium/Sodium Chloride (25,000 unit/ Sodium Chloride) 250 mls @ 13.553 mls/hr IV .[id number] [facility]; Protocol Last Admin: 06/09/21 10:16 Dose: 18 units/kg/hr, 13.553 mls/hr Documented by: Levothyroxine Sodium (Levothyroxine 25 Mcg Tab) 25 mcg PO DAILY@0630 [facility] Last Admin: 06/09/21 05:47 Dose: 25 mcg Documented by: Montelukast Sodium (Montelukast 10 Mg Tab) 10 mg PO HS [facility] Last Admin: 06/08/21 20:19 Dose: 10 mg Documented by: Multivitamins (Multivitamins, Thera 1 Each Tab) 1 each PO DAILY@1200 [facility] Last Admin: 06/09/21 12:14 Dose: 1 each Documented by: Non-Formulary Medication (Beclomethasone Dipropionate [Qnasl Children]) 2 spray EA NOSTRIL DAILY [facility] Last Admin: 06/09/21 10:26 Dose: Not Given Documented by: Pantoprazole Sodium (Pantoprazole 40 Mg Tablet) 40 mg PO AC-BRKFST [facility] Last Admin: 06/09/21 07:09 Dose: 40 mg Documented by: Temazepam (Temazepam 30 Mg Cap) 30 mg PO HS PRN PRN Reason: Insomnia Zinc Sulfate (Zinc Sulfate 220 Mg Cap) 220 mg PO DAILY [facility] Last Admin: 06/09/21 07:09 Dose: 220 mg Documented by: PHYSICAL EXAMINATION: GENERAL: The patient is alert and oriented, well developed, well nourished. currently on 11L HF HEENT: Pupils are round and equally reacting to light. EOMI. does have scleral icterus. No conjunctival pallor. Normocephalic, atraumatic. No pharyngeal erythema. No thyromegaly. CARDIOVASCULAR: S1 and S2 muffled PULMONARY: diminished breath sounds bilaterally with Few scattered coarse rhonchi noted. ABDOMEN: soft. non-tender. Non-distended, normoactive bowel sounds. No palpable organomegaly. MUSCULOSKELETAL: No joint swelling or deformity. EXTREMITIES: No cyanosis, clubbing, or pedal edema. NEUROLOGICAL: Gross neurological examination did not reveal any focal deficits. SKIN: No rashes. Assessment: Acute covid 19 infection with bilateral interstitial pneumonia with acute hypoxic respiratory failure Elevated liver function tests, possibly secondary to covid 19 Left lower extremity deep vein thrombosis hypothyroidism elevated d-dimer with no evidence of PE on CT dvt prophylaxis GI prophylaxis Full code Plan: Recommend to continue with current medications and symptomatic treatment. Patient continues with shortness of breath and maintained on 11L HF Pulmonary following. Patient continued on Baricitinib. Patient was maintained on lovenox although having leg pain and was positive for left leg DVT and started on IV heparin and will verify coverage of oral anticoagulant transition. Recommend to continue with vitamin and zinc supplements and oral dexamethasone. Encouraged incentive spirometer use and increased activity as tolerated. Repeat labs and chest x-ray ordered for a.m. Due to multiple complex medical issues, prognosis is guarded. The impression and plan of care has been dictated by Monica Rodriguez, nurse practitioner as directed. MD Dwight I have performed a history and examination and MDM of this patient, discussed the same with the dictator, and agree with the dictator's assessment and plan as written ,documented as a scribe. Based on total visit time, I have performed more than 50% of the visit. Any additional findings or plans will be noted. Objective - Vital Signs Vital signs: Vital Signs Temp 97.5 F L 06/09/21 10:05 Pulse 91 06/09/21 10:05 Resp 20 06/09/21 06:00 BP 129/75 06/09/21 10:05 Pulse Ox 92 L 06/09/21 10:05 Intake & Output 06/08/21 06/09/21 06/09/21 18:59 06:59 18:59 Intake Total 1900.066 423.624 Balance 1900.066 423.624 Intake: Intake, IV Titration 100.066 127.624 Amount Heparin Sod,Pork in 0.45% 100.066 127.624 NaCl 25,000 unit In 0.45 % NaCl 1 250ml.bag @ 18 UNITS/KG/HR 13.553 mls/hr IV .[id number] [facility] Rx#: [id number] Oral 1800 296 Other: # Voids 3 3 - Labs CBC & Chem 7: 06/09/21 05:23 06/08/21 04:44 Labs: Abnormal Lab Results - Last 24 Hours (Table) 06/08/21 06/08/21 06/08/21 Range/Units 18:08 18:08 23:35 WBC 11.0 H (3.8-10.6) k/uL RBC (4.10-5.20) X 10*6/uL Hgb (12.0-15.0) g/dL Hct (37.2-46.3) % MCHC (32.0-37.0) g/dL RDW 15.6 H (11.5-15.5) % Immature Gran # (0.00-0.04) X 10*3/uL Neutrophils # 9.2 H (1.3-7.7) k/uL APTT 99.5 H 46.6 H (22.0-30.0) sec 06/09/21 Range/Units 05:23 WBC 14.17 H (3.8-10.6) k/uL RBC 3.92 L (4.10-5.20) X 10*6/uL Hgb 10.8 L (12.0-15.0) g/dL Hct 35.0 L (37.2-46.3) % MCHC 30.9 L (32.0-37.0) g/dL RDW 16.0 H (11.5-15.5) % Immature Gran # 0.48 H (0.00-0.04) X 10*3/uL Neutrophils # 10.21 H (1.3-7.7) k/uL APTT (22.0-30.0) sec Microbiology - Last 24 Hours (Table) 06/05/21 15:09 Blood Culture - Preliminary Blood No Growth after 72 hours
[2021-06-09] MEDS: ACETAMINOPHEN TAB 325 MG TAB PO PRN (19:18)
[2021-06-09] MEDS: MONTELUKAST 10 MG TAB PO SCH (19:19)
[2021-06-10] MEDS: HEPARIN SOD,PORK IN 0.45% NACL 25,000 UNIT in 0.45% NACL 1 250ML.BAG IV SCH (05:39)
[2021-06-10] MEDS: LEVOTHYROXINE 25 MCG TAB PO SCH (05:39)
[2021-06-10 05:57] LABS: Basophils % (A) 0 %; Eosinophils # (A) 0.1 k/uL (0-0.7); Eosinophils % (A) 1 %; HCT 36.4 % (34.0-46.0); HGB 11.5 gm/dL (11.4-16.0); Hypochromasia Slight; Lymphocytes # (A) 2.3 k/uL (1.0-4.8); Lymphocytes % (A) 19 %; MCH 28.4 pg (25.0-35.0); MCHC 31.5 g/dL (31.0-37.0); MCV 90.2 fL (80.0-100.0); Mean Platelet Volume 7.7; Monocytes # (A) 0.4 k/uL (0-1.0); Monocytes % (A) 3 %; Neutrophils % (A) 75 %; Platelet Count 320 k/uL (150-450); RBC 4.04 m/uL (3.80-5.40); RDW 15.6 % (11.5-15.5)
[2021-06-10 06:11] LABS: ALT 47 U/L (4-34); AST 35 U/L (14-36); African American GFR (CKD) >90 (>60 ml/min/1.73 sqM); Albumin 2.9 g/dL (3.5-5.0); Albumin/Globulin Ratio 0.8; Alkaline Phosphatase 152 U/L (38-126); Anion Gap 5 mmol/L; Blood Urea Nitrogen 12 mg/dL (7-17); Calcium 8.2 mg/dL (8.4-10.2); Carbon Dioxide 26 mmol/L (22-30); Chloride 105 mmol/L (98-107); Globulin 3.5 g/dL; Glucose 78 mg/dL (74-99); LDH 1148 U/L (313-618); Non-African American GFR(CKD) 87 (>60 ml/min/1.73 sqM); Potassium 4.1 mmol/L (3.5-5.1); Sodium 136 mmol/L (137-145); Total Protein 6.4 g/dL (6.3-8.2)
[2021-06-10] MEDS: ASCORBIC ACID 500 MG TAB PO SCH (07:36)
[2021-06-10] MEDS: ZINC SULFATE 220 MG CAP PO SCH (07:36)
[2021-06-10] MEDS: dexAMETHasone 2 MG TAB PO SCH (07:36)
[2021-06-10] MEDS: PANTOPRAZOLE 40 MG TABLET PO SCH (07:36)
[2021-06-10] MEDS: CHOLECALCIFEROL 125 MCG (5000 IU) TABLET PO SCH (07:36)
[2021-06-10] MEDS: BECLOMETHASONE DIPROPIONATE EA NOSTRIL SCH (07:37)
--- NOTE | 2021-06-10 08:52 | XR ---
EXAMINATION TYPE: XR chest 1V portable DATE OF EXAM: 06/10/2021 COMPARISON: Chest x-ray 06/08/2021 HISTORY: Covid positive, abnormal chest x-ray TECHNIQUE: Single frontal view of the chest is obtained. FINDINGS: There is no evident pneumothorax. Bilateral airspace disease shows a similar appearance. C ardiac mediastinal silhouette not significantly changed. IMPRESSION: Correlate for pneumonia.
[2021-06-10] MEDS: SYMBICORT 160-4.5 MCG INHALER INHALATION SCH ×2 (08:59→20:21)
[2021-06-10] MEDS: ALBUTEROL HFA INHALER INHALATION SCH ×3 (08:59→20:21)
[2021-06-10] MEDS ORDERED: APIXABAN 5 MG TAB PO SCH (09:30)
--- NOTE | 2021-06-10 11:31 | P.PN ---
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 The patient apparently has not been feeling well for at least a couple weeks. She apparently tested positive for coronavirus back on May 23. Early on, she mostly had nasal congestion and drainage. More recently, she's been feeling worse, but she over the last 4 or 5 days. She apparently started having difficulty breathing over the weekend, her home pulse ox saturation was only 79%. She had fever and chills. For that reason, she came to the emergency room to be evaluated was minute with a diagnosis of hypoxemic respiratory failure secondary to coronavirus associated pneumonia. The patient is on vaccinated. She has no significant past medical history save for ALLERGIES, and hypothyroidism.. She does not use tobacco products. Her family doctor is Dr. Lopes. Currently, she is on 4 L nasal cannula. She's not receiving any IV fluids. Her white count was 11.3, hemoglobin 12.1, hematocrit 37.3, platelet count 374,000. D-dimer was 9.45. Sodium was 136. The rest of the electrolyte profile looks good. Calcium 8.1 bilirubin 1.6 AST 77 ALT 88 and albumin 2.6. Testing here for coronavirus was positive. Chest x- ray shows diffuse bilateral infiltrates. CAT scan was negative for pulmonary embolism but did reveal significant bilateral groundglass opacities. The patient is seen today 06/05/2021 in follow-up on the regular medical floor. She is currently resting comfortably in bed. Awake and alert in no acute distress. She is still coughing. She still is congested. She is requiring 6 L high flow nasal cannula now to maintain O2 saturation the high 80s low 90s. No fever or chills. No hemoptysis. She is currently on Decadron, Lovenox, vitamin supplements. White count 12.3. Hemoglobin 9.8. Lymphocytes 0.7. Sodium 140. Potassium 3.5. Creatinine 0.6. Glucose 120. The patient is seen today 06/06/2021 in follow-up on the regular medical floor. She is awake and alert in no acute distress. She is requiring 15 L high flow nasal cannula to maintain O2 saturations in the high 80s low 90s. She is doing about the same compared to yesterday. No worsening shortness of breath. Not much improvement though. chest x-ray shows diffuse bilateral infiltrates consistent with COVID-19 pneumonia. She is continued on Decadron, Lovenox, vitamin supplements. The patient is seen today 06/07/2021 follow-up on the regular medical floor. She is currently sitting up in a chair at the bedside. Awake and alert in no acute distress. Doing about the same today compared to yesterday. No worse. May be slightly better. She is requiring 13 L high flow nasal cannula to maintain O2 saturations at 91%. She was initiated on Baricitinib. She is continued on Decadron, Lovenox and vitamin supplements. Remains on Symbicort a nd albuterol. White count 13.1. Hemoglobin 9.4. Sodium 136. Potassium 3.7. Creatinine 0.66. LDH 524. C-reactive protein 9.1. The patient is seen today 06/10/2021 in follow-up on the regular medical floor. She is currently sitting up in bed. Awake and alert in no acute distress. She is currently on 11 L high flow nasal cannula to maintain O2 saturation in the low 90s. She has been initiated on a heparin drip due to a positive DVT in the left lower extremity. She is also on Baricitinib, Decadron, vitamin supplements. She is continued on Symbicort, albuterol, Singulair. Robitussin as needed. Chest x-ray continues to show bilateral airspace disease. No evidence of pneumothorax. WBC 12.0. Hemoglobin 11.5. Leukocytes 2.3. Sodium 136. Potassium 4.1. Creatinine 0.77. AST 35. ALT 47. LDH 1148. C-reactive protein 6.0. Objective - Vital Signs Vital signs: Vital Signs Temp 97.7 F 06/10/21 10:00 Pulse 95 06/10/21 10:00 Resp 17 06/10/21 10:00 BP 117/76 06/10/21 10:00 Pulse Ox 90 L 06/10/21 10:00 Intake & Output 06/09/21 06/10/21 06/10/21 18:59 06:59 18:59 Intake Total 423.624 250 Balance 423.624 250 Intake: Intake, IV Titration 127.624 250 Amount Heparin Sod,Pork in 0.45% 127.624 250 NaCl 25,000 unit In 0.45 % NaCl 1 250ml.bag @ 18 UNITS/KG/HR 13.553 mls/hr IV .[id number] [facility] Rx#: [id number] Oral 296 Other: Voiding Method Toilet # Voids 2 - Exam GENERAL EXAM: Alert, very pleasant 55-year-old female, up in a chair at the bedside, on 11 L high flow nasal cannula comfortable in no apparent distress. HEAD: Normocephalic. EYES: Normal reaction of pupils, equal size. NOSE: Clear with pink turbinates. THROAT: No erythema or exudates. NECK: No masses, no JVD. CHEST: No chest wall deformity. LUNGS: Equal air entry with coarse crackles in the posterior bases. CVS: S1 and S2 normal with no audible murmur, regular rhythm. ABDOMEN: No hepatosplenomegaly, normal bowel sounds, no guarding or rigidity. SPINE: No scoliosis or deformity SKIN: No rashes CENTRAL NERVOUS SYSTEM: No focal deficits, tone is normal in all 4 extremities. EXTREMITIES: There is no peripheral edema. No clubbing, no cyanosis. Peripheral pulses are intact. - Labs CBC & Chem 7: 06/10/21 05:19 06/10/21 05:19 Labs: Abnormal Lab Results - Last 24 Hours (Table) 06/10/21 06/10/21 06/10/21 Range/Units 00:17 05:19 05:19 WBC 12.0 H (3.8-10.6) k/uL RDW 15.6 H (11.5-15.5) % Neutrophils # 9.0 H (1.3-7.7) k/uL APTT 55.2 H (22.0-30.0) sec Sodium 136 L (137-145) mmol/L Calcium 8.2 L (8.4-10.2) mg/dL ALT 47 H (4-34) U/L Alkaline Phosphatase 152 H (38-126) U/L Lactate Dehydrogenase 1148 H (313-618) U/L C-Reactive Protein 6.0 H (<1.0) mg/dL Albumin 2.9 L (3.5-5.0) g/dL 02/22/22 Range/Units 05:19 WBC (3.8-10.6) k/uL RDW (11.5-15.5) % Neutrophils # (1.3-7.7) k/uL APTT 31.2 H (22.0-30.0) sec Sodium (137-145) mmol/L Calcium (8.4-10.2) mg/dL ALT (4-34) U/L Alkaline Phosphatase (38-126) U/L Lactate Dehydrogenase (313-618) U/L C-Reactive Protein (<1.0) mg/dL Albumin (3.5-5.0) g/dL Microbiology - Last 24 Hours (Table) 06/05/21 15:09 Blood Culture - Preliminary Blood No Growth after 96 hours Assessment and Plan Assessment: 1 Acute hypoxemic respiratory failure secondary to coronavirus associated pneumonia. Outside the window for Remdesivir. Initiated on Baricitinib 022 2 Acute DVT of the left lower extremity. Initiated on heparin drip 06/08/2021. 3 History of hypothyroidism. 4 History of environmental ALLERGIES. 5 Patient is unvaccinated. Plan: The patient was seen and evaluated Chest x-ray and labs reviewed On 11 L high flow nasal cannula to maintain O2 saturations in the 90s Continue to titrate the FiO2 as tolerated Transitioned heparin drip to Eliquis Continue Baricitinib Continue Decadron, vitamin supplements Continue Symbicort, Singulair, albuterol Encouraged to prone and switch positions while in bed Up in the chair as much as possible Continue to work with the incentive spirometer We will continue to follow I, the cosigning physician, performed a history & physical examination of the patient. Lungs sounds coarse crackles bilaterally. Maintaining O2 saturations in the 90s on 11 L high flow nasal cannula. I discussed the assessment and plan of care with my nurse practitioner, Barbara Sue. I attest to the above note as dictated by her. I have personally seen and examined the patient, performed the documentation and the assessment and plan as written. Number of minutes spent on the visit: 10.
[2021-06-10] MEDS: APIXABAN 5 MG TAB PO SCH ×2 (12:37→20:21)
[2021-06-10] MEDS: MULTIVITAMINS, THERA 1 EACH TAB PO SCH (12:37)
[2021-06-10] MEDS: BARICITINIB 2 MG TABLET PO SCH (14:35)
[2021-06-10] MEDS ORDERED: ALPRAZolam 0.25 MG TAB PO PRN (14:39)
[2021-06-10] MEDS: ALBUTEROL HFA INHALER INHALATION PRN (17:13)
[2021-06-10] MEDS: ACETAMINOPHEN TAB 325 MG TAB PO PRN (20:21)
[2021-06-10] MEDS: MONTELUKAST 10 MG TAB PO SCH (20:21)
--- NOTE | 2021-06-10 23:55 | P.PN ---
Subjective Progress Note Date: 06/10/21 06/05/2021 This is a 55 year old female who was admitted with increasing shortness of breath and cough with congestion and is being closely monitored. Pulmonary following. Patient was positive for Covid 19 on Feb 4 and also positive here on ED admission. Patient is not vaccinated. Patient continues with shortness of breath and cough. Patient requiring more oxygen and currently on 15L HF NC and was 6L this am. Patient maintained on lovenox, oral dexamethasone, vitamins and zinc and will continue. Procalcitonin and chest xray ordered and pending. 06/06/2021 Patient is seen in follow up today and continues on 15L via HF NC and denies any worsening of the shortness of breath. Patient states she feels fatigued and not sleeping well and will order sleep aid. Patient continues on oral dexamethasone, vitamin and zinc supplements, and lovenox and being started on Baricitinib with pulmonary following closely. Patient to continue with proning and lateral position laying and also encouraged incentive spirometer. Encouraged activity as tolerated. Wean FI02 as tolerated. 06/07/2021 Patient is seen and evaluated at bedside for follow-up on the regular medical floor. She is currently sitting up in a chair at the bedside. Awake and alert in no acute distress. Doing about the same today compared to yesterday. She is requiring 13 L high flow nasal cannula to maintain O2 saturations at 91%. She was initiated on Baricitinib. She is continued on Decadron, Lovenox and vitamin supplements. Remains on Symbicort and albuterol. White count 13.1. Hemoglobin 9.4. Sodium 136. Potassium 3.7. Creatinine 0.66. LDH 524. C- reactive protein 9.1. Plan is to continue to titrate FiO2 as tolerated; self proning is encouraged; continue with incentive spirometry 06/08/2021 Patient is seen and evaluated and discussed with nursing staff; sitting up in bedside chair; complains of swelling and pain left lower extremity Vital signs are reviewed; patient remains on O2 at 11 L HFNC with O2 saturation 95%; we will order bilateral lower extremity venous Doppler to rule out PE She was initiated on Baricitinib. She is continued on Decadron, Lovenox and vitamin supplements. Remains on Symbicort and albuterol. Patient remains on subcu Lovenox at 40 mg subcu daily; we will treat to full therapeutic dose if venous Doppler comes back positive 06/09/2021 Patient is seen in follow-up this morning continues on high flow nasal cannula and currently back up to 11 L high flow as patient was on 9 L although oxygen saturations not maintained above 89%. Pulmonary air transportation provider following. Patient continues on subcutaneous Lovenox and did have some leg pain and underwent venous Doppler study which shows no evidence of DVT in the right leg although in the left there is a limited acute deep vein thrombosis in the peroneal vein of the calf and Lovenox was discontinued and patient was placed on IV heparin drip. Patient also continues on vitamin and zinc supplements along with oral dexamethasone and will continue. Encouraged incentive spirometer at least 10 times every hour while awake and increased activity as tolerated. Encourage the patient to avoid sleeping throughout the day and will add Restoril for night. She also continues on Baricitinib and will continue. Will order chest x-ray for the a.m. We'll also verify coverage of oral anticoagulant to transition off IV heparin. Patient denies chest pain or palpitations. Patient is afebrile. Patient denies worsening shortness of breath. 06/10/2021 Patient is seen today and currently requiring more oxygen with 15 LHF and also 15 L non-rebreather. Per nursing staff, patient oxygen saturation dropped significantly today and placed on the non-rebreather. Patient is extremely anxious today and demanding her to be at the bedside. Per protocol and cdc, patient is to remain isolated as there was a confirmed positive test that was performed on 06/04. Patient continues on Baricitinib along with vitamin and zinc supplements, and oral dexamethasone. IV heparin discontinued and transitioned to eliquis. Pulmonary is following. Patient denies chest pain or worsening shortness of breath. Chest xray reviewed as well. Patient is afebrile. Review of systems: Constitutional: reports of fatigue, no reports of fever, or chills, anxious Cardiovascular: No reports of chest pain or palpitations Respiratory: reports of continued shortness of breath and cough, with no worsening GI: No reports of nausea, vomiting, or diarrhea : No reports of dysuria or retention Neurovascular: reports of generalized weakness All medications have been reviewed Active Medications Acetaminophen (Acetaminophen Tab 325 Mg Tab) 650 mg PO Q6HR PRN PRN Reason: Fever and/ or Mild Pain Last Admin: 06/10/21 20:21 Dose: 650 mg Documented by: Albuterol Sulfate (Albuterol Hfa Inhaler) 2 puff INHALATION RT-TID COUNTS INCLUDE 234 BEDS AT THE [facility] Last Admin: 06/10/21 20:21 Dose: 2 puff Documented by: Albuterol Sulfate (Albuterol Hfa Inhaler) 2 puff INHALATION RT-TID PRN PRN Reason: Shortness Of Breath Or Wheezing Last Admin: 06/10/21 17:13 Dose: 2 puff Documented by: Alprazolam (Alprazolam 0.25 Mg Tab) 0.25 mg PO TID PRN PRN Reason: Anxiety Apixaban (Apixaban 5 Mg Tab) 10 mg PO BID COUNTS INCLUDE 234 BEDS AT THE [facility]; Protocol Stop: 06/16/21 21:01 Last Admin: 06/10/21 20:21 Dose: 10 mg Documented by: Ascorbic Acid (Ascorbic Acid 500 Mg Tab) 1,000 mg PO DAILY COUNTS INCLUDE 234 BEDS AT THE [facility] Last Admin: 06/10/21 07:36 Dose: 1,000 mg Documented by: Baricitinib (Baricitinib 2 Mg Tablet) 4 mg PO Q24H COUNTS INCLUDE 234 BEDS AT THE [facility] Stop: 06/19/21 14:01 Last Admin: 06/10/21 14:35 Dose: 4 mg Documented by: Budesonide/Formoterol Fumarate (Symbicort 160-4.5 Mcg Inhaler) 2 puff INHALATION RT-BID COUNTS INCLUDE 234 BEDS AT THE [facility] Last Admin: 06/10/21 20:21 Dose: 2 puff Documented by: Cholecalciferol (Cholecalciferol 125 Mcg (5000 Iu) Tablet) 125 mcg PO DAILY COUNTS INCLUDE 234 BEDS AT THE [facility] Last Admin: 06/10/21 07:36 Dose: 125 mcg Documented by: Dexamethasone (Dexamethasone 2 Mg Tab) 6 mg PO DAILY COUNTS INCLUDE 234 BEDS AT THE [facility] Last Admin: 06/10/21 07:36 Dose: 6 mg Documented by: Guaifenesin/Dextromethorphan (Guaifenesin-Dm 100-10mg/5ml 10 Ml Cup) 5 ml PO Q4HR PRN PRN Reason: Cough Last Admin: 06/08/21 20:19 Dose: 5 ml Documented by: Levothyroxine Sodium (Levothyroxine 25 Mcg Tab) 25 mcg PO DAILY@0630 COUNTS INCLUDE 234 BEDS AT THE [facility] Last Admin: 06/10/21 05:39 Dose: 25 mcg Documented by: Montelukast Sodium (Montelukast 10 Mg Tab) 10 mg PO [facility] Last Admin: 06/10/21 20:21 Dose: 10 mg Documented by: Multivitamins (Multivitamins, Thera 1 Each Tab) 1 each PO DAILY@1200 COUNTS INCLUDE 234 BEDS AT THE [facility] Last Admin: 06/10/21 12:37 Dose: 1 each Documented by: Non-Formulary Medication (Beclomethasone Dipropionate [Qnasl Children]) 2 spray EA NOSTRIL DAILY COUNTS INCLUDE 234 BEDS AT THE [facility] Last Admin: 06/10/21 07:37 Dose: Not Given Documented by: Pantoprazole Sodium (Pantoprazole 40 Mg Tablet) 40 mg PO AC-BRKFST COUNTS INCLUDE 234 BEDS AT THE [facility] Last Admin: 06/10/21 07:36 Dose: 40 mg Documented by: Temazepam (Temazepam 30 Mg Cap) 30 mg PO HS PRN PRN Reason: Insomnia Zinc Sulfate (Zinc Sulfate 220 Mg Cap) 220 mg PO DAILY COUNTS INCLUDE 234 BEDS AT THE [facility] Last Admin: 06/10/21 07:36 Dose: 220 mg Documented by: PHYSICAL EXAMINATION: GENERAL: The patient is alert and oriented, well developed, well nourished. Anxious. currently on 15L HF and also 15 L non-rebreather HEENT: Pupils are round and equally reacting to light. EOMI. does have scleral icterus. No conjunctival pallor. Normocephalic, atraumatic. No pharyngeal erythema. No thyromegaly. CARDIOVASCULAR: S1 and S2 muffled PULMONARY: diminished breath sounds bilaterally with Few scattered coarse rhonchi noted. ABDOMEN: soft. non-tender. Non-distended, normoactive bowel sounds. No palpable organomegaly. MUSCULOSKELETAL: No joint swelling or deformity. EXTREMITIES: No cyanosis, clubbing, or pedal edema. NEUROLOGICAL: Gross neurological examination did not reveal any focal deficits. SKIN: No rashes. Assessment: Acute covid 19 infection with bilateral interstitial pneumonia with acute hypoxic respiratory failure Elevated liver function tests, possibly secondary to covid 19 Left lower extremity deep vein thrombosis hypothyroidism elevated d-dimer with no evidence of PE on CT dvt prophylaxis GI prophylaxis Full code Plan: Recommend to continue with current medications and symptomatic treatment. Patient continues with shortness of breath and maintained on 15L HF Pulmonary following. Patient continued on Baricitinib. Patient was maintained on IV heparin and transitioned to eliquis for DVT. Recommend to continue with vitamin and zinc supplements and oral dexamethasone. Encouraged incentive spirometer use and increased activity as tolerated. Repeat labs and chest x-ray ordered for a.m. Due to multiple complex medical issues, prognosis is guarded. The impression and plan of care has been dictated by Monica Rodriguez, nurse practitioner as directed. MD Dwight I have performed a history and examination and MDM of this patient, discussed the same with the dictator, and agree with the dictator's assessment and plan as written ,documented as a scribe. Based on total visit time, I have performed more than 50% of the visit. Any additional findings or plans will be noted. Objective - Vital Signs Vital signs: Vital Signs Temp 97.7 F 06/10/21 10:00 Pulse 95 06/10/21 10:00 Resp 17 06/10/21 10:00 BP 117/76 06/10/21 10:00 Pulse Ox 90 L 06/10/21 10:00 Intake & Output 06/09/21 06/10/21 06/10/21 18:59 06:59 18:59 Intake Total 423.624 250 Balance 423.624 250 Intake: Intake, IV Titration 127.624 250 Amount Heparin Sod,Pork in 0.45% 127.624 250 NaCl 25,000 unit In 0.45 % NaCl 1 250ml.bag @ 18 UNITS/KG/HR 13.553 mls/hr IV .[id number] COUNTS INCLUDE 234 BEDS AT THE [facility] Rx#: [id number] Oral 296 Other: Voiding Method Toilet # Voids 2 - Labs CBC & Chem 7: 06/10/21 05:19 06/10/21 05:19 Labs: Abnormal Lab Results - Last 24 Hours (Table) 06/10/21 06/10/21 06/10/21 Range/Units 00:17 05:19 05:19 WBC 12.0 H (3.8-10.6) k/uL RDW 15.6 H (11.5-15.5) % Neutrophils # 9.0 H (1.3-7.7) k/uL APTT 55.2 H (22.0-30.0) sec Sodium 136 L (137-145) mmol/L Calcium 8.2 L (8.4-10.2) mg/dL ALT 47 H (4-34) U/L Alkaline Phosphatase 152 H (38-126) U/L Lactate Dehydrogenase 1148 H (313-618) U/L C-Reactive Protein 6.0 H (<1.0) mg/dL Albumin 2.9 L (3.5-5.0) g/dL 06/10/21 Range/Units 05:19 WBC (3.8-10.6) k/uL RDW (11.5-15.5) % Neutrophils # (1.3-7.7) k/uL APTT 31.2 H (22.0-30.0) sec Sodium (137-145) mmol/L Calcium (8.4-10.2) mg/dL ALT (4-34) U/L Alkaline Phosphatase (38-126) U/L Lactate Dehydrogenase (313-618) U/L C-Reactive Protein (<1.0) mg/dL Albumin (3.5-5.0) g/dL Microbiology - Last 24 Hours (Table) 06/05/21 15:09 Blood Culture - Preliminary Blood No Growth after 96 hours
[2021-06-11] MEDS: ACETAMINOPHEN TAB 325 MG TAB PO PRN ×3 (04:56→21:01)
[2021-06-11] MEDS: LEVOTHYROXINE 25 MCG TAB PO SCH (04:57)
[2021-06-11 06:26] LABS: Basophils # (A) 0.1 k/uL (0-0.2); Basophils % (A) 0 %; Eosinophils # (A) 0.1 k/uL (0-0.7); Eosinophils % (A) 1 %; HCT 38.4 % (34.0-46.0); HGB 11.9 gm/dL (11.4-16.0); Hypochromasia Slight; Lymphocytes # (A) 1.9 k/uL (1.0-4.8); Lymphocytes % (A) 14 %; MCH 27.9 pg (25.0-35.0); Mean Platelet Volume 7.7; Monocytes # (A) 0.5 k/uL (0-1.0); Monocytes % (A) 4 %; Neutrophils # (A) 10.8 k/uL (1.3-7.7); Neutrophils % (A) 80 %; Platelet Count 331 k/uL (150-450); RBC 4.27 m/uL (3.80-5.40); RDW 15.4 % (11.5-15.5); WBC 13.6 k/uL (3.8-10.6)
[2021-06-11 06:51] LABS: ALT 59 U/L (4-34); AST 50 U/L (14-36); African American GFR (CKD) >90 (>60 ml/min/1.73 sqM); Albumin/Globulin Ratio 0.8; Alkaline Phosphatase 188 U/L (38-126); Anion Gap 6 mmol/L; Blood Urea Nitrogen 15 mg/dL (7-17); Calcium 8.6 mg/dL (8.4-10.2); Carbon Dioxide 24 mmol/L (22-30); Chloride 104 mmol/L (98-107); Globulin 3.6 g/dL; Glucose 83 mg/dL (74-99); Non-African American GFR(CKD) 84 (>60 ml/min/1.73 sqM); Potassium 4.1 mmol/L (3.5-5.1); Sodium 134 mmol/L (137-145); Total Bilirubin 1.1 mg/dL (0.2-1.3); Total Protein 6.6 g/dL (6.3-8.2)
[2021-06-11] MEDS: APIXABAN 5 MG TAB PO SCH ×2 (09:15→21:01)
[2021-06-11] MEDS: PANTOPRAZOLE 40 MG TABLET PO SCH (09:15)
[2021-06-11] MEDS: CHOLECALCIFEROL 125 MCG (5000 IU) TABLET PO SCH (09:15)
[2021-06-11] MEDS: ASCORBIC ACID 500 MG TAB PO SCH (09:15)
[2021-06-11] MEDS: dexAMETHasone 2 MG TAB PO SCH (09:15)
[2021-06-11] MEDS: ZINC SULFATE 220 MG CAP PO SCH (09:15)
[2021-06-11] MEDS: ALBUTEROL HFA INHALER INHALATION SCH ×3 (09:26→21:20)
[2021-06-11] MEDS: SYMBICORT 160-4.5 MCG INHALER INHALATION SCH ×2 (09:26→21:21)
[2021-06-11] MEDS: BECLOMETHASONE DIPROPIONATE EA NOSTRIL SCH (09:52)
--- NOTE | 2021-06-11 10:39 | P.PN ---
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 The patient apparently has not been feeling well for at least a couple weeks. She apparently tested positive for coronavirus back on May 23. Early on, she mostly had nasal congestion and drainage. More recently, she's been feeling worse, but she over the last 4 or 5 days. She apparently started having difficulty breathing over the weekend, her home pulse ox saturation was only 79%. She had fever and chills. For that reason, she came to the emergency room to be evaluated was minute with a diagnosis of hypoxemic respiratory failure secondary to coronavirus associated pneumonia. The patient is on vaccinated. She has no significant past medical history save for ALLERGIES, and hypothyroidism.. She does not use tobacco products. Her family doctor is Dr. Lopes. Currently, she is on 4 L nasal cannula. She's not receiving any IV fluids. Her white count was 11.3, hemoglobin 12.1, hematocrit 37.3, platelet count 374,000. D-dimer was 9.45. Sodium was 136. The rest of the electrolyte profile looks good. Calcium 8.1 bilirubin 1.6 AST 77 ALT 88 and albumin 2.6. Testing here for coronavirus was positive. Chest x- ray shows diffuse bilateral infiltrates. CAT scan was negative for pulmonary embolism but did reveal significant bilateral groundglass opacities. The patient is seen today 06/05/2021 in follow-up on the regular medical floor. She is currently resting comfortably in bed. Awake and alert in no acute distress. She is still coughing. She still is congested. She is requiring 6 L high flow nasal cannula now to maintain O2 saturation the high 80s low 90s. No fever or chills. No hemoptysis. She is currently on Decadron, Lovenox, vitamin supplements. White count 12.3. Hemoglobin 9.8. Lymphocytes 0.7. Sodium 140. Potassium 3.5. Creatinine 0.6. Glucose 120. The patient is seen today 06/06/2021 in follow-up on the regular medical floor. She is awake and alert in no acute distress. She is requiring 15 L high flow nasal cannula to maintain O2 saturations in the high 80s low 90s. She is doing about the same compared to yesterday. No worsening shortness of breath. Not much improvement though. chest x-ray shows diffuse bilateral infiltrates consistent with COVID-19 pneumonia. She is continued on Decadron, Lovenox, vitamin supplements. The patient is seen today 06/07/2021 follow-up on the regular medical floor. She is currently sitting up in a chair at the bedside. Awake and alert in no acute distress. Doing about the same today compared to yesterday. No worse. May be slightly better. She is requiring 13 L high flow nasal cannula to maintain O2 saturations at 91%. She was initiated on Baricitinib. She is continued on Decadron, Lovenox and vitamin supplements. Remains on Symbicort a nd albuterol. White count 13.1. Hemoglobin 9.4. Sodium 136. Potassium 3.7. Creatinine 0.66. LDH 524. C-reactive protein 9.1. The patient is seen today 06/10/2021 in follow-up on the regular medical floor. She is currently sitting up in bed. Awake and alert in no acute distress. She is currently on 11 L high flow nasal cannula to maintain O2 saturation in the low 90s. She has been initiated on a heparin drip due to a positive DVT in the left lower extremity. She is also on Baricitinib, Decadron, vitamin supplements. She is continued on Symbicort, albuterol, Singulair. Robitussin as needed. Chest x-ray continues to show bilateral airspace disease. No evidence of pneumothorax. WBC 12.0. Hemoglobin 11.5. Leukocytes 2.3. Sodium 136. Potassium 4.1. Creatinine 0.77. AST 35. ALT 47. LDH 1148. C-reactive protein 6.0. The patient is seen today 06/11/2021 in follow-up on the regular medical floor. She is awake and alert in no acute distress. Sitting up at the bedside. Feeling better today compared to yesterday. She remains on 15 L high flow nasal cannula. Yesterday afternoon. White count 13.6. Hemoglobin 11.9. Lymphocytes 1.9. Sodium 134. Potassium 4.1. Creatinine 0.8. AST 50. ALT 59. Alk phos 188. She is continued on Decadron, Eliquis, vitamin supplements. She remains on Baricitinib. Objective - Vital Signs Vital signs: Vital Signs Temp 97.5 F L 06/11/21 05:35 Pulse 86 06/11/21 05:35 Resp 18 06/11/21 05:35 BP 114/74 06/11/21 05:35 Pulse Ox 92 L 06/11/21 09:31 Intake & Output 06/10/21 06/11/21 06/11/21 18:59 06:59 18:59 Other: Voiding Method Toilet Toilet # Voids 2 - Exam GENERAL EXAM: Alert, very pleasant 55-year-old female, up in a chair at the bedside, on 15 L high flow nasal cannula comfortable in no apparent distress. HEAD: Normocephalic. EYES: Normal reaction of pupils, equal size. NOSE: Clear with pink turbinates. THROAT: No erythema or exudates. NECK: No masses, no JVD. CHEST: No chest wall deformity. LUNGS: Equal air entry with coarse crackles in the posterior bases. CVS: S1 and S2 normal with no audible murmur, regular rhythm. ABDOMEN: No hepatosplenomegaly, normal bowel sounds, no guarding or rigidity. SPINE: No scoliosis or deformity SKIN: No rashes CENTRAL NERVOUS SYSTEM: No focal deficits, tone is normal in all 4 extremities. EXTREMITIES: There is no peripheral edema. No clubbing, no cyanosis. Peripheral pulses are intact. - Labs CBC & Chem 7: 06/11/21 05:47 06/11/21 05:47 Labs: Abnormal Lab Results - Last 24 Hours (Table) 06/11/21 06/11/21 Range/Units 05:47 05:47 WBC 13.6 H (3.8-10.6) k/uL Neutrophils # 10.8 H (1.3-7.7) k/uL Sodium 134 L (137-145) mmol/L AST 50 H (14-36) U/L ALT 59 H (4-34) U/L Alkaline Phosphatase 188 H (38-126) U/L Albumin 3.0 L (3.5-5.0) g/dL Microbiology - Last 24 Hours (Table) 06/05/21 15:09 Blood Culture - Preliminary Blood No Growth after 120 hours Assessment and Plan Assessment: 1 Acute hypoxemic respiratory failure secondary to coronavirus associated pneumonia. Outside the window for Remdesivir. Initiated on Baricitinib 06/06/2021 2 Acute DVT of the left lower extremity. Initiated on heparin drip 06/08/2021 and subsequently transitioned to Eliquis. 3 History of hypothyroidism. 4 History of environmental ALLERGIES. 5 Patient is unvaccinated. Plan: The patient was seen and evaluated Labs reviewed On 15 L high flow nasal cannula to maintain O2 saturations in the 90s Continue to titrate down the FiO2 as tolerated Anticoagulated with Eliquis Continue Baricitinib, Decadron, vitamin supplements Continue Symbicort, Singulair, albuterol Continue to work with the incentive spirometer Follow-up chest x-ray and inflammatory markers in a.m. Greater than 2 weeks since initial diagnosis, cleared for her to visit We will continue to follow I, the cosigning physician, performed a history & physical examination of the patient. Lungs sounds coarse crackles bilaterally. Maintaining O2 saturations in the 90s on 15 L high flow nasal cannula. I discussed the assessment and plan of care with my nurse practitioner, Barbara Sue. I attest to the above note as dictated by her. I have personally seen and examined the patient, performed the documentation and the assessment and plan as written. Number of minutes spent on the visit: 10.
[2021-06-11] MEDS: MULTIVITAMINS, THERA 1 EACH TAB PO SCH (12:34)
[2021-06-11 13:10] VITALS: BMI 27.6
--- NOTE | 2021-06-11 14:29 | P.PN ---
Subjective Progress Note Date: 06/11/21 06/05/2021 This is a 55 year old female who was admitted with increasing shortness of breath and cough with congestion and is being closely monitored. Pulmonary following. Patient was positive for Covid 19 on Feb 4 and also positive here on ED admission. Patient is not vaccinated. Patient continues with shortness of breath and cough. Patient requiring more oxygen and currently on 15L HF NC and was 6L this am. Patient maintained on lovenox, oral dexamethasone, vitamins and zinc and will continue. Procalcitonin and chest xray ordered and pending. 06/06/2021 Patient is seen in follow up today and continues on 15L via HF NC and denies any worsening of the shortness of breath. Patient states she feels fatigued and not sleeping well and will order sleep aid. Patient continues on oral dexamethasone, vitamin and zinc supplements, and lovenox and being started on Baricitinib with pulmonary following closely. Patient to continue with proning and lateral position laying and also encouraged incentive spirometer. Encouraged activity as tolerated. Wean FI02 as tolerated. 06/07/2021 Patient is seen and evaluated at bedside for follow-up on the regular medical floor. She is currently sitting up in a chair at the bedside. Awake and alert in no acute distress. Doing about the same today compared to yesterday. She is requiring 13 L high flow nasal cannula to maintain O2 saturations at 91%. She was initiated on Baricitinib. She is continued on Decadron, Lovenox and vitamin supplements. Remains on Symbicort and albuterol. White count 13.1. Hemoglobin 9.4. Sodium 136. Potassium 3.7. Creatinine 0.66. LDH 524. C- reactive protein 9.1. Plan is to continue to titrate FiO2 as tolerated; self proning is encouraged; continue with incentive spirometry 06/08/2021 Patient is seen and evaluated and discussed with nursing staff; sitting up in bedside chair; complains of swelling and pain left lower extremity Vital signs are reviewed; patient remains on O2 at 11 L HFNC with O2 saturation 95%; we will order bilateral lower extremity venous Doppler to rule out PE She was initiated on Baricitinib. She is continued on Decadron, Lovenox and vitamin supplements. Remains on Symbicort and albuterol. Patient remains on subcu Lovenox at 40 mg subcu daily; we will treat to full therapeutic dose if venous Doppler comes back positive 06/09/2021 Patient is seen in follow-up this morning continues on high flow nasal cannula and currently back up to 11 L high flow as patient was on 9 L although oxygen saturations not maintained above 89%. Pulmonary medical record administrator following. Patient continues on subcutaneous Lovenox and did have some leg pain and underwent venous Doppler study which shows no evidence of DVT in the right leg although in the left there is a limited acute deep vein thrombosis in the peroneal vein of the calf and Lovenox was discontinued and patient was placed on IV heparin drip. Patient also continues on vitamin and zinc supplements along with oral dexamethasone and will continue. Encouraged incentive spirometer at least 10 times every hour while awake and increased activity as tolerated. Encourage the patient to avoid sleeping throughout the day and will add Restoril for night. She also continues on Baricitinib and will continue. Will order chest x-ray for the a.m. We'll also verify coverage of oral anticoagulant to transition off IV heparin. Patient denies chest pain or palpitations. Patient is afebrile. Patient denies worsening shortness of breath. 06/10/2021 Patient is seen today and currently requiring more oxygen with 15 LHF and also 15 L non-rebreather. Per nursing staff, patient oxygen saturation dropped significantly today and placed on the non-rebreather. Patient is extremely anxious today and demanding her to be at the bedside. Per protocol and cdc, patient is to remain isolated as there was a confirmed positive test that was performed on 06/04. Patient continues on Baricitinib along with vitamin and zinc supplements, and oral dexamethasone. IV heparin discontinued and transitioned to eliquis. Pulmonary is following. Patient denies chest pain or worsening shortness of breath. Chest xray reviewed as well. Patient is afebrile. 06/11/2021 Patient is seen in follow up today and sitting up in the chair bathing and having some increase in shortness of breath and taking breaks in between and patient becomes extremely dyspneic with minimal exertion. Patient recently titrated down to 13L HF via NC and not currently using non-rebreather. Patient feeling slightly less anxious today and continues to request to be at the bedside. Patient denies any chest pain or palpitations. Patient is afebrile. Patient tolerating diet with no reports of nausea or vomiting noted. Encouraged increased activity as tolerated, continued IS use, and proning while in bed. Review of systems: Constitutional: reports of fatigue, no reports of fever, or chills, less anxious Cardiovascular: No reports of chest pain or palpitations Respiratory: reports of continued shortness of breath and cough, with minimal exertion GI: No reports of nausea, vomiting, or diarrhea : No reports of dysuria or retention Neurovascular: reports of generalized weakness All medications have been reviewed Active Medications Acetaminophen (Acetaminophen Tab 325 Mg Tab) 650 mg PO Q6HR PRN PRN Reason: Fever and/ or Mild Pain Last Admin: 06/11/21 04:56 Dose: 650 mg Documented by: Albuterol Sulfate (Albuterol Hfa Inhaler) 2 puff INHALATION RT-TID [facility] Last Admin: 06/10/21 20:21 Dose: 2 puff Documented by: Albuterol Sulfate (Albuterol Hfa Inhaler) 2 puff INHALATION RT-TID PRN PRN Reason: Shortness Of Breath Or Wheezing Last Admin: 06/10/21 17:13 Dose: 2 puff Documented by: Alprazolam (Alprazolam 0.25 Mg Tab) 0.25 mg PO TID PRN PRN Reason: Anxiety Apixaban (Apixaban 5 Mg Tab) 10 mg PO BID [facility]; Protocol Stop: 06/16/21 21:01 Last Admin: 06/10/21 20:21 Dose: 10 mg Documented by: Ascorbic Acid (Ascorbic Acid 500 Mg Tab) 1,000 mg PO DAILY [facility] Last Admin: 06/10/21 07:36 Dose: 1,000 mg Documented by: Baricitinib (Baricitinib 2 Mg Tablet) 4 mg PO Q24H [facility] Stop: 06/19/21 14:01 Last Admin: 06/10/21 14:35 Dose: 4 mg Documented by: Budesonide/Formoterol Fumarate (Symbicort 160-4.5 Mcg Inhaler) 2 puff INHALATION RT-BID [facility] Last Admin: 06/10/21 20:21 Dose: 2 puff Documented by: Cholecalciferol (Cholecalciferol 125 Mcg (5000 Iu) Tablet) 125 mcg PO DAILY [facility] Last Admin: 06/10/21 07:36 Dose: 125 mcg Documented by: Dexamethasone (Dexamethasone 2 Mg Tab) 6 mg PO DAILY [facility] Last Admin: 06/10/21 07:36 Dose: 6 mg Documented by: Guaifenesin/Dextromethorphan (Guaifenesin-Dm 100-10mg/5ml 10 Ml Cup) 5 ml PO Q4HR PRN PRN Reason: Cough Last Admin: 06/08/21 20:19 Dose: 5 ml Documented by: Levothyroxine Sodium (Levothyroxine 25 Mcg Tab) 25 mcg PO DAILY@0630 [facility] Last Admin: 06/11/21 04:57 Dose: 25 mcg Documented by: Montelukast Sodium (Montelukast 10 Mg Tab) 10 mg PO HS [facility] Last Admin: 06/10/21 20:21 Dose: 10 mg Documented by: Multivitamins (Multivitamins, Thera 1 Each Tab) 1 each PO DAILY@1200 [facility] Last Admin: 06/10/21 12:37 Dose: 1 each Documented by: Non-Formulary Medication (Beclomethasone Dipropionate [Qnasl Children]) 2 spray EA NOSTRIL DAILY [facility] Last Admin: 06/10/21 07:37 Dose: Not Given Documented by: Pantoprazole Sodium (Pantoprazole 40 Mg Tablet) 40 mg PO AC-BRKFST [facility] Last Admin: 06/10/21 07:36 Dose: 40 mg Documented by: Temazepam (Temazepam 30 Mg Cap) 30 mg PO HS PRN PRN Reason: Insomnia Zinc Sulfate (Zinc Sulfate 220 Mg Cap) 220 mg PO DAILY [facility] Last Admin: 06/10/21 07:36 Dose: 220 mg Documented by: PHYSICAL EXAMINATION: GENERAL: The patient is alert and oriented, well developed, well nourished. Less Anxious. currently on 13L HF HEENT: Pupils are round and equally reacting to light. EOMI. does have scleral icterus. No conjunctival pallor. Normocephalic, atraumatic. No pharyngeal erythema. No thyromegaly. CARDIOVASCULAR: S1 and S2 muffled PULMONARY: diminished breath sounds bilaterally with Few scattered coarse rhonchi noted. tachypneic, no accessory muscle use although working to breathe o n exam after just washing up ABDOMEN: soft. non-tender. Non-distended, normoactive bowel sounds. No palpable organomegaly. MUSCULOSKELETAL: No joint swelling or deformity. EXTREMITIES: No cyanosis, clubbing, or pedal edema. NEUROLOGICAL: Gross neurological examination did not reveal any focal deficits. SKIN: No rashes. Assessment: Acute covid 19 infection with bilateral interstitial pneumonia with acute hypoxic respiratory failure Elevated liver function tests, possibly secondary to covid 19 Left lower extremity deep vein thrombosis hypothyroidism elevated d-dimer with no evidence of PE on CT dvt prophylaxis GI prophylaxis Full code Plan: Recommend to continue with current medications and symptomatic treatment. Patient continues with shortness of breath and maintained on 15L HF. Pulmonary following. Patient continued on Baricitinib. Patient also on eliquis for confirmed DVT of the left lower extremity. Recommend to continue with vitamin and zinc supplements and oral dexamethasone. Encouraged incentive spirometer use and increased activity as tolerated. Repeat labs and chest x-ray and inflammatory markers ordered for a.m. Due to multiple complex medical issues, prognosis is guarded. The impression and plan of care has been dictated by Monica Rodriguez, nurse practitioner as directed. MD Stephon I have performed a history and examination and MDM of this patient, discussed the same with the dictator, and agree with the dictator's assessment and plan as written ,documented as a scribe. Based on total visit time, I have performed more than 50% of the visit. Any additional findings or plans will be noted. Objective - Vital Signs Vital signs: Vital Signs Temp 97.5 F L 06/11/21 05:35 Pulse 86 06/11/21 05:35 Resp 18 06/11/21 05:35 BP 114/74 06/11/21 05:35 Pulse Ox 97 06/11/21 05:35 Intake & Output 06/10/21 06/11/21 06/11/21 18:59 06:59 18:59 Other: Voiding Method Toilet # Voids 2 - Labs CBC & Chem 7: 06/11/21 05:47 06/11/21 05:47 Labs: Abnormal Lab Results - Last 24 Hours (Table) 06/11/21 06/11/21 Range/Units 05:47 05:47 WBC 13.6 H (3.8-10.6) k/uL Neutrophils # 10.8 H (1.3-7.7) k/uL Sodium 134 L (137-145) mmol/L AST 50 H (14-36) U/L ALT 59 H (4-34) U/L Alkaline Phosphatase 188 H (38-126) U/L Albumin 3.0 L (3.5-5.0) g/dL Microbiology - Last 24 Hours (Table) 06/05/21 15:09 Blood Culture - Preliminary Blood No Growth after 120 hours
[2021-06-11] MEDS: BARICITINIB 2 MG TABLET PO SCH (16:03)
[2021-06-11] MEDS: MONTELUKAST 10 MG TAB PO SCH (21:01)
[2021-06-12 05:54] LABS: Basophils % (A) 0 %; Eosinophils # (A) 0.1 k/uL (0-0.7); Eosinophils % (A) 1 %; HCT 36.9 % (34.0-46.0); HGB 11.8 gm/dL (11.4-16.0); Hypochromasia Slight; Lymphocytes # (A) 1.6 k/uL (1.0-4.8); Lymphocytes % (A) 12 %; MCH 28.9 pg (25.0-35.0); MCV 90.5 fL (80.0-100.0); Mean Platelet Volume 8.4; Monocytes # (A) 0.5 k/uL (0-1.0); Monocytes % (A) 4 %; Neutrophils # (A) 11.3 k/uL (1.3-7.7); Neutrophils % (A) 83 %; Platelet Count 346 k/uL (150-450); RBC 4.07 m/uL (3.80-5.40); RDW 15.3 % (11.5-15.5); WBC 13.7 k/uL (3.8-10.6)
[2021-06-12 06:15] LABS: ALT 113 U/L (4-34); AST 73 U/L (14-36); African American GFR (CKD) >90 (>60 ml/min/1.73 sqM); Albumin/Globulin Ratio 0.9; Alkaline Phosphatase 225 U/L (38-126); Anion Gap 4 mmol/L; Blood Urea Nitrogen 17 mg/dL (7-17); Calcium 8.8 mg/dL (8.4-10.2); Carbon Dioxide 26 mmol/L (22-30); Chloride 104 mmol/L (98-107); Globulin 3.5 g/dL; Glucose 84 mg/dL (74-99); LDH 1003 U/L (313-618); Non-African American GFR(CKD) >90 (>60 ml/min/1.73 sqM); Potassium 4.5 mmol/L (3.5-5.1); Sodium 134 mmol/L (137-145); Total Protein 6.5 g/dL (6.3-8.2)
[2021-06-12] MEDS: LEVOTHYROXINE 25 MCG TAB PO SCH (06:20)
[2021-06-12 07:20] LABS: C Reactive Protein 7.5 mg/dL (<1.0)
[2021-06-12] MEDS: CHOLECALCIFEROL 125 MCG (5000 IU) TABLET PO SCH (08:07)
[2021-06-12] MEDS: ASCORBIC ACID 500 MG TAB PO SCH (08:07)
[2021-06-12] MEDS: dexAMETHasone 2 MG TAB PO SCH (08:07)
[2021-06-12] MEDS: APIXABAN 5 MG TAB PO SCH ×2 (08:07→21:04)
[2021-06-12] MEDS: PANTOPRAZOLE 40 MG TABLET PO SCH (08:07)
[2021-06-12] MEDS: ZINC SULFATE 220 MG CAP PO SCH (08:07)
[2021-06-12] MEDS: BECLOMETHASONE DIPROPIONATE EA NOSTRIL SCH (08:08)
[2021-06-12] MEDS: SYMBICORT 160-4.5 MCG INHALER INHALATION SCH ×2 (08:38→20:46)
[2021-06-12] MEDS: ALBUTEROL HFA INHALER INHALATION SCH ×3 (08:39→20:46)
--- NOTE | 2021-06-12 08:40 | XR ---
EXAMINATION TYPE: XR chest 1V portable DATE OF EXAM: 06/12/2021 COMPARISON: Prior chest x-ray 06/10/2021 HISTORY: Covid pneumonia TECHNIQUE: Single frontal view of the chest is obtained. FINDINGS: Bilateral patchy densities present within the lungs similar to prior exam. Cardiomediastin al silhouette shows a similar appearance. There is some lucency noted adjacent to the left heart bord er. Lung volumes are low. Subcutaneous emphysema changes are present over the neck which may have dev eloped in the interval. No definite pneumothorax or pleural effusion. IMPRESSION: There may be pneumomediastinum. Findings consistent with patient's history pneumonia. Ad ditional findings above.
--- NOTE | 2021-06-12 11:11 | P.PN ---
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 The patient apparently has not been feeling well for at least a couple weeks. She apparently tested positive for coronavirus back on May 23. Early on, she mostly had nasal congestion and drainage. More recently, she's been feeling worse, but she over the last 4 or 5 days. She apparently started having difficulty breathing over the weekend, her home pulse ox saturation was only 79%. She had fever and chills. For that reason, she came to the emergency room to be evaluated was minute with a diagnosis of hypoxemic respiratory failure secondary to coronavirus associated pneumonia. The patient is on vaccinated. She has no significant past medical history save for ALLERGIES, and hypothyroidism.. She does not use tobacco products. Her family doctor is Dr. Lopes. Currently, she is on 4 L nasal cannula. She's not receiving any IV fluids. Her white count was 11.3, hemoglobin 12.1, hematocrit 37.3, platelet count 374,000. D-dimer was 9.45. Sodium was 136. The rest of the electrolyte profile looks good. Calcium 8.1 bilirubin 1.6 AST 77 ALT 88 and albumin 2.6. Testing here for coronavirus was positive. Chest x- ray shows diffuse bilateral infiltrates. CAT scan was negative for pulmonary embolism but did reveal significant bilateral groundglass opacities. The patient is seen today 06/05/2021 in follow-up on the regular medical floor. She is currently resting comfortably in bed. Awake and alert in no acute distress. She is still coughing. She still is congested. She is requiring 6 L high flow nasal cannula now to maintain O2 saturation the high 80s low 90s. No fever or chills. No hemoptysis. She is currently on Decadron, Lovenox, vitamin supplements. White count 12.3. Hemoglobin 9.8. Lymphocytes 0.7. Sodium 140. Potassium 3.5. Creatinine 0.6. Glucose 120. The patient is seen today 06/06/2021 in follow-up on the regular medical floor. She is awake and alert in no acute distress. She is requiring 15 L high flow nasal cannula to maintain O2 saturations in the high 80s low 90s. She is doing about the same compared to yesterday. No worsening shortness of breath. Not much improvement though. chest x-ray shows diffuse bilateral infiltrates consistent with COVID-19 pneumonia. She is continued on Decadron, Lovenox, vitamin supplements. The patient is seen today 06/07/2021 follow-up on the regular medical floor. She is currently sitting up in a chair at the bedside. Awake and alert in no acute distress. Doing about the same today compared to yesterday. No worse. May be slightly better. She is requiring 13 L high flow nasal cannula to maintain O2 saturations at 91%. She was initiated on Baricitinib. She is continued on Decadron, Lovenox and vitamin supplements. Remains on Symbicort a nd albuterol. White count 13.1. Hemoglobin 9.4. Sodium 136. Potassium 3.7. Creatinine 0.66. LDH 524. C-reactive protein 9.1. The patient is seen today 06/10/2021 in follow-up on the regular medical floor. She is currently sitting up in bed. Awake and alert in no acute distress. She is currently on 11 L high flow nasal cannula to maintain O2 saturation in the low 90s. She has been initiated on a heparin drip due to a positive DVT in the left lower extremity. She is also on Baricitinib, Decadron, vitamin supplements. She is continued on Symbicort, albuterol, Singulair. Robitussin as needed. Chest x-ray continues to show bilateral airspace disease. No evidence of pneumothorax. WBC 12.0. Hemoglobin 11.5. Leukocytes 2.3. Sodium 136. Potassium 4.1. Creatinine 0.77. AST 35. ALT 47. LDH 1148. C-reactive protein 6.0. The patient is seen today 06/11/2021 in follow-up on the regular medical floor. She is awake and alert in no acute distress. Sitting up at the bedside. Feeling better today compared to yesterday. She remains on 15 L high flow nasal cannula. Yesterday afternoon. White count 13.6. Hemoglobin 11.9. Lymphocytes 1.9. Sodium 134. Potassium 4.1. Creatinine 0.8. AST 50. ALT 59. Alk phos 188. She is continued on Decadron, Eliquis, vitamin supplements. She remains on Baricitinib. The patient is seen today 06/12/2021 in follow-up on the regular medical floor. She is sitting up in bed. Awake and alert in no acute distress. Breathing a bit better today compared to yesterday. Still with a dry nonproductive cough. Maintaining O2 saturations in the 90s on 9 L high flow nasal cannula. She remains afebrile. Hemodynamically stable. Today's chest x-ray showing some improvement in the bilateral patchy densities however there is some pneumomediastinum and with lucency noted adjacent to the left heart border. There is also subcutaneous emphysema over the right neck area. No definite pneumothorax or pleural effusion. White count 13.7. Hemoglobin 11.8. Sodium 134. Potassium 4.5. BUN 17. Creatinine 0.75. AST 73. ALT 113. LDH 1003. C-reactive protein 7.5. She is continued on Baricitinib, Eliquis, Decadron and vitamin supplements. Maintained on Symbicort and Ventolin. Objective - Vital Signs Vital signs: Vital Signs Temp 97.9 F 06/12/21 10:00 Pulse 94 06/12/21 10:00 Resp 18 06/12/21 10:00 BP 104/60 06/12/21 10:00 Pulse Ox 96 06/12/21 10:00 Intake & Output 06/11/21 06/12/21 06/12/21 18:59 06:59 18:59 Intake Total 1600 Balance 1600 Weight 75.296 kg Intake: Oral 1600 Other: Voiding Method Toilet # Voids 2 - Exam GENERAL EXAM: Alert, very pleasant 55-year-old female, on 9 L high flow nasal cannula comfortable in no apparent distress. HEAD: Normocephalic. EYES: Normal reaction of pupils, equal size. NOSE: Clear with pink turbinates. THROAT: No erythema or exudates. NECK: No masses, no JVD. CHEST: No chest wall deformity. LUNGS: Equal air entry with minimal crackles in the posterior bases. CVS: S1 and S2 normal with no audible murmur, regular rhythm. ABDOMEN: No hepatosplenomegaly, normal bowel sounds, no guarding or rigidity. SPINE: No scoliosis or deformity SKIN: No rashes CENTRAL NERVOUS SYSTEM: No focal deficits, tone is normal in all 4 extremities. EXTREMITIES: There is no peripheral edema. No clubbing, no cyanosis. Valorie pheral pulses are intact. - Labs CBC & Chem 7: 06/12/21 04:28 06/12/21 04:28 Labs: Abnormal Lab Results - Last 24 Hours (Table) 06/12/21 06/12/21 Range/Units 04:28 04:28 WBC 13.7 H (3.8-10.6) k/uL Neutrophils # 11.3 H (1.3-7.7) k/uL Sodium 134 L (137-145) mmol/L AST 73 H (14-36) U/L ALT 113 H (4-34) U/L Alkaline Phosphatase 225 H (38-126) U/L Lactate Dehydrogenase 1003 H (313-618) U/L C-Reactive Protein 7.5 H (<1.0) mg/dL Albumin 3.0 L (3.5-5.0) g/dL Microbiology - Last 24 Hours (Table) 06/05/21 15:09 Blood Culture - Final Blood No Growth after 144 hours Assessment and Plan Assessment: 1 Acute hypoxemic respiratory failure secondary to coronavirus associated pneumonia. Outside the window for Remdesivir. Initiated on Baricitinib 06/06/2021. Chest x-ray reveals possible pneumomediastinum with lucency noted adjacent to the left heart border. There is some subcutaneous emphysema on the right neck. No definite pneumothorax or pleural effusion. 2 Acute DVT of the left lower extremity. Initiated on heparin drip 06/08/2021 and subsequently transitioned to Eliquis. 3 History of hypothyroidism. 4 History of environmental ALLERGIES. 5 Patient is unvaccinated. Plan: The patient was seen and evaluated Chest x-ray and labs reviewed On 9 L high flow nasal cannula Continue to titrate down the FiO2 as tolerated Continue the current treatment plan Continue to work with the incentive spirometer We will continue to follow I, the cosigning physician, performed a history & physical examination of the patient. Lungs sounds minimal crackles bilaterally. Maintaining O2 saturations in the 90s on 9 L high flow nasal cannula. I discussed the assessment and plan of care with my nurse practitioner, Barbara Sue. I attest to the above note as dictated by her. I have personally seen and examined the patient, performed the documentation and the assessment and plan as written. Number of minutes spent on the visit: 10.
[2021-06-12] MEDS: MULTIVITAMINS, THERA 1 EACH TAB PO SCH (12:23)
[2021-06-12] MEDS: BARICITINIB 2 MG TABLET PO SCH (12:23)
[2021-06-12] MEDS: SODIUM CHLORIDE 0.9% 1,000 ML IV SCH (14:30)
--- NOTE | 2021-06-12 15:55 | P.PN ---
Subjective Progress Note Date: 06/12/21 06/05/2021 This is a 55 year old female who was admitted with increasing shortness of breath and cough with congestion and is being closely monitored. Pulmonary following. Patient was positive for Covid 19 on Feb 4 and also positive here on ED admission. Patient is not vaccinated. Patient continues with shortness of breath and cough. Patient requiring more oxygen and currently on 15L HF NC and was 6L this am. Patient maintained on lovenox, oral dexamethasone, vitamins and zinc and will continue. Procalcitonin and chest xray ordered and pending. 06/06/2021 Patient is seen in follow up today and continues on 15L via HF NC and denies any worsening of the shortness of breath. Patient states she feels fatigued and not sleeping well and will order sleep aid. Patient continues on oral dexamethasone, vitamin and zinc supplements, and lovenox and being started on Baricitinib with pulmonary following closely. Patient to continue with proning and lateral position laying and also encouraged incentive spirometer. Encouraged activity as tolerated. Wean FI02 as tolerated. 06/07/2021 Patient is seen and evaluated at bedside for follow-up on the regular medical floor. She is currently sitting up in a chair at the bedside. Awake and alert in no acute distress. Doing about the same today compared to yesterday. She is requiring 13 L high flow nasal cannula to maintain O2 saturations at 91%. She was initiated on Baricitinib. She is continued on Decadron, Lovenox and vitamin supplements. Remains on Symbicort and albuterol. White count 13.1. Hemoglobin 9.4. Sodium 136. Potassium 3.7. Creatinine 0.66. LDH 524. C- reactive protein 9.1. Plan is to continue to titrate FiO2 as tolerated; self proning is encouraged; continue with incentive spirometry 06/08/2021 Patient is seen and evaluated and discussed with nursing staff; sitting up in bedside chair; complains of swelling and pain left lower extremity Vital signs are reviewed; patient remains on O2 at 11 L HFNC with O2 saturation 95%; we will order bilateral lower extremity venous Doppler to rule out PE She was initiated on Baricitinib. She is continued on Decadron, Lovenox and vitamin supplements. Remains on Symbicort and albuterol. Patient remains on subcu Lovenox at 40 mg subcu daily; we will treat to full therapeutic dose if venous Doppler comes back positive 06/09/2021 Patient is seen in follow-up this morning continues on high flow nasal cannula and currently back up to 11 L high flow as patient was on 9 L although oxygen saturations not maintained above 89%. Pulmonary rig manager following. Patient continues on subcutaneous Lovenox and did have some leg pain and underwent venous Doppler study which shows no evidence of DVT in the right leg although in the left there is a limited acute deep vein thrombosis in the peroneal vein of the calf and Lovenox was discontinued and patient was placed on IV heparin drip. Patient also continues on vitamin and zinc supplements along with oral dexamethasone and will continue. Encouraged incentive spirometer at least 10 times every hour while awake and increased activity as tolerated. Encourage the patient to avoid sleeping throughout the day and will add Restoril for night. She also continues on Baricitinib and will continue. Will order chest x-ray for the a.m. We'll also verify coverage of oral anticoagulant to transition off IV heparin. Patient denies chest pain or palpitations. Patient is afebrile. Patient denies worsening shortness of breath. 06/10/2021 Patient is seen today and currently requiring more oxygen with 15 LHF and also 15 L non-rebreather. Per nursing staff, patient oxygen saturation dropped significantly today and placed on the non-rebreather. Patient is extremely anxious today and demanding her to be at the bedside. Per protocol and cdc, patient is to remain isolated as there was a confirmed positive test that was performed on 06/04. Patient continues on Baricitinib along with vitamin and zinc supplements, and oral dexamethasone. IV heparin discontinued and transitioned to eliquis. Pulmonary is following. Patient denies chest pain or worsening shortness of breath. Chest xray reviewed as well. Patient is afebrile. 06/11/2021 Patient is seen in follow up today and sitting up in the chair bathing and having some increase in shortness of breath and taking breaks in between and patient becomes extremely dyspneic with minimal exertion. Patient recently titrated down to 13L HF via NC and not currently using non-rebreather. Patient feeling slightly less anxious today and continues to request to be at the bedside. Patient denies any chest pain or palpitations. Patient is afebrile. Patient tolerating diet with no reports of nausea or vomiting noted. Encouraged increased activity as tolerated, continued IS use, and proning while in bed. 06/12/2021 Patient is seen in follow-up today and continues with shortness of breath otherwise improved and is currently maintained on 9 L via nasal cannula high flow and tolerating. Chest x-ray today shows a lateral patchy densities present within the lungs similar to prior exam with some come subcutaneous emphysema changes that are present over the neck which may have developed in the interval with no definite pneumothorax or pleural effusion noted. There may be pneumomediastinum and findings have been consistent with patient's history of pneumonia. Sodium mildly low low at 134 and liver functions are elevated and will add gentle IV hydration and repeat labs. Encouraged increased activity as tolerated and continued incentive spirometer use. Review of systems: Constitutional: reports of fatigue, no reports of fever, or chills, less anxious Cardiovascular: No reports of chest pain or palpitations Respiratory: reports of continued shortness of breath and cough, with minimal exertion GI: No reports of nausea, vomiting, or diarrhea : No reports of dysuria or retention Neurovascular: reports of generalized weakness All medications have been reviewed Active Medications Acetaminophen (Acetaminophen Tab 325 Mg Tab) 650 mg PO Q6HR PRN PRN Reason: Fever and/ or Mild Pain Last Admin: 06/11/21 21:01 Dose: 650 mg Documented by: Albuterol Sulfate (Albuterol Hfa Inhaler) 2 puff INHALATION RT-TID [facility] Last Admin: 06/12/21 13:14 Dose: 2 puff Documented by: Albuterol Sulfate (Albuterol Hfa Inhaler) 2 puff INHALATION RT-TID PRN PRN Reason: Shortness Of Breath Or Wheezing Last Admin: 06/10/21 17:13 Dose: 2 puff Documented by: Alprazolam (Alprazolam 0.25 Mg Tab) 0.25 mg PO TID PRN PRN Reason: Anxiety Apixaban (Apixaban 5 Mg Tab) 10 mg PO BID [facility]; Protocol Stop: 06/16/21 21:01 Last Admin: 06/12/21 08:07 Dose: 10 mg Documented by: Ascorbic Acid (Ascorbic Acid 500 Mg Tab) 1,000 mg PO DAILY [facility] Last Admin: 06/12/21 08:07 Dose: 1,000 mg Documented by: Baricitinib (Baricitinib 2 Mg Tablet) 4 mg PO Q24H [facility] Stop: 06/19/21 14:01 Last Admin: 06/12/21 12:23 Dose: 4 mg Documented by: Budesonide/Formoterol Fumarate (Symbicort 160-4.5 Mcg Inhaler) 2 puff INHALATION RT-BID [facility] Last Admin: 06/12/21 08:38 Dose: 2 puff Documented by: Cholecalciferol (Cholecalciferol 125 Mcg (5000 Iu) Tablet) 125 mcg PO DAILY [facility] Last Admin: 06/12/21 08:07 Dose: 125 mcg Documented by: Dexamethasone (Dexamethasone 2 Mg Tab) 6 mg PO DAILY [facility] Last Admin: 06/12/21 08:07 Dose: 6 mg Documented by: Guaifenesin/Dextromethorphan (Guaifenesin-Dm 100-10mg/5ml 10 Ml Cup) 5 ml PO Q4HR PRN PRN Reason: Cough Last Admin: 06/08/21 20:19 Dose: 5 ml Documented by: Sodium Chloride (Saline 0.9%) 1,000 mls @ 75 mls/hr IV .[id number] [facility] Last Admin: 06/12/21 14:30 Dose: Not Given Documented by: Levothyroxine Sodium (Levothyroxine 25 Mcg Tab) 25 mcg PO DAILY@0630 [facility] Last Admin: 06/12/21 06:20 Dose: 25 mcg Documented by: Montelukast Sodium (Montelukast 10 Mg Tab) 10 mg PO HS [facility] Last Admin: 06/11/21 21:01 Dose: 10 mg Documented by: Multivitamins (Multivitamins, Thera 1 Each Tab) 1 each PO DAILY@1200 [facility] Last Admin: 06/12/21 12:23 Dose: 1 each Documented by: Non-Formulary Medication (Beclomethasone Dipropionate [Qnasl Children]) 2 spray EA NOSTRIL DAILY [facility] Last Admin: 06/12/21 08:08 Dose: Not Given Documented by: Pantoprazole Sodium (Pantoprazole 40 Mg Tablet) 40 mg PO AC-BRKFST [facility] Last Admin: 06/12/21 08:07 Dose: 40 mg Documented by: Temazepam (Temazepam 30 Mg Cap) 30 mg PO HS PRN PRN Reason: Insomnia Zinc Sulfate (Zinc Sulfate 220 Mg Cap) 220 mg PO DAILY [facility] Last Admin: 06/12/21 08:07 Dose: 220 mg Documented by: PHYSICAL EXAMINATION: GENERAL: The patient is alert and oriented, well developed, well nourished. currently on 9L HF HEENT: Pupils are round and equally reacting to light. EOMI. does have scleral icterus. No conjunctival pallor. Normocephalic, atraumatic. No pharyngeal erythema. No thyromegaly. CARDIOVASCULAR: S1 and S2 muffled PULMONARY: diminished breath sounds bilaterally with Few scattered coarse rhonc hi noted. tachypneic, no accessory muscle use ABDOMEN: soft. non-tender. Non-distended, normoactive bowel sounds. No palpable organomegaly. MUSCULOSKELETAL: No joint swelling or deformity. EXTREMITIES: No cyanosis, clubbing, or pedal edema. NEUROLOGICAL: Gross neurological examination did not reveal any focal deficits. SKIN: No rashes. Assessment: Acute covid 19 infection with bilateral interstitial pneumonia with acute hypoxic respiratory failure Elevated liver function tests, possibly secondary to covid 19 Left lower extremity deep vein thrombosis Mild hyponatremia, will add gentle IV hydration and repeat labs hypothyroidism elevated d-dimer with no evidence of PE on CT dvt prophylaxis GI prophylaxis Full code Plan: Recommend to continue with current medications and symptomatic treatment. Patient continues with shortness of breath and maintained on 9L HF. Pulmonary following. Patient continued on Baricitinib. Patient also on eliquis for confirmed DVT of the left lower extremity. Patient's sodium mildly low at 134 and LFTs are continued to be elevated and will add gentle IV hydration and repeat labs. Chest x-ray as mentioned previously with possible pneumomediastinum with some subcutaneous emphysema noted on the right side although not appreciated on exam. Patient reports to breathing easier and tolerating the titration and high flow oxygen. Recommend to continue with vitamin and zinc supplements and oral dexamethasone. Encouraged incentive spirometer use and increased activity as tolerated. Repeat labs ordered for a.m. Due to multiple complex medical issues, prognosis is guarded. The impression and plan of care has been dictated by Monica Rodriguez nurse practitioner as directed. MD Stephon I have performed a history and examination and MDM of this patient, discussed the same with the dictator, and agree with the dictator's assessment and plan as written ,documented as a scribe. Based on total visit time, I have performed more than 50% of the visit. Any additional findings or plans will be noted. Objective - Vital Signs Vital signs: Vital Signs Temp 97.7 F 06/12/21 05:25 Pulse 89 06/12/21 05:25 Resp 18 06/12/21 05:25 BP 111/69 06/12/21 05:25 Pulse Ox 98 06/12/21 05:25 Intake & Output 06/11/21 06/12/21 06/12/21 18:59 06:59 18:59 Intake Total 1600 Balance 1600 Weight 75.296 kg Intake: Oral 1600 Other: Voiding Method Toilet # Voids 2 - Labs CBC & Chem 7: 06/12/21 04:28 06/12/21 04:28 Labs: Abnormal Lab Results - Last 24 Hours (Table) 06/12/21 06/12/21 Range/Units 04:28 04:28 WBC 13.7 H (3.8-10.6) k/uL Neutrophils # 11.3 H (1.3-7.7) k/uL Sodium 134 L (137-145) mmol/L AST 73 H (14-36) U/L ALT 113 H (4-34) U/L Alkaline Phosphatase 225 H (38-126) U/L Lactate Dehydrogenase 1003 H (313-618) U/L C-Reactive Protein 7.5 H (<1.0) mg/dL Albumin 3.0 L (3.5-5.0) g/dL Microbiology - Last 24 Hours (Table) 06/05/21 15:09 Blood Culture - Final Blood No Growth after 144 hours
[2021-06-12] MEDS: ACETAMINOPHEN TAB 325 MG TAB PO PRN (21:04)
[2021-06-12] MEDS: MONTELUKAST 10 MG TAB PO SCH (21:05)
[2021-06-13] MEDS: LEVOTHYROXINE 25 MCG TAB PO SCH (05:59)
[2021-06-13] MEDS: SODIUM CHLORIDE 0.9% 1,000 ML IV SCH (06:02)
[2021-06-13] MEDS: BECLOMETHASONE DIPROPIONATE EA NOSTRIL SCH (07:25)
[2021-06-13] MEDS: ASCORBIC ACID 500 MG TAB PO SCH (07:56)
[2021-06-13] MEDS: dexAMETHasone 2 MG TAB PO SCH (07:57)
[2021-06-13] MEDS: PANTOPRAZOLE 40 MG TABLET PO SCH (07:57)
[2021-06-13] MEDS: ZINC SULFATE 220 MG CAP PO SCH (07:57)
[2021-06-13] MEDS: CHOLECALCIFEROL 125 MCG (5000 IU) TABLET PO SCH (07:57)
[2021-06-13] MEDS: APIXABAN 5 MG TAB PO SCH (07:57)
[2021-06-13 09:25] LABS: Basophils % (A) 0 %; Eosinophils # (A) 0.2 k/uL (0-0.7); Eosinophils % (A) 1 %; HCT 38.7 % (34.0-46.0); HGB 12.2 gm/dL (11.4-16.0); Hypochromasia Slight; Lymphocytes # (A) 2.2 k/uL (1.0-4.8); Lymphocytes % (A) 15 %; MCH 28.6 pg (25.0-35.0); MCHC 31.5 g/dL (31.0-37.0); Mean Platelet Volume 8.3; Monocytes # (A) 0.6 k/uL (0-1.0); Monocytes % (A) 4 %; Neutrophils # (A) 11.4 k/uL (1.3-7.7); Neutrophils % (A) 78 %; Platelet Count 414 k/uL (150-450); RBC 4.26 m/uL (3.80-5.40); RDW 15.3 % (11.5-15.5); WBC 14.7 k/uL (3.8-10.6)
[2021-06-13 09:57] LABS: Potassium 4.1 mmol/L (3.5-5.1)
[2021-06-13] MEDS: SYMBICORT 160-4.5 MCG INHALER INHALATION SCH (09:58)
[2021-06-13] MEDS: ALBUTEROL HFA INHALER INHALATION SCH ×2 (09:58→11:18)
[2021-06-13 09:59] LABS: ALT 107 U/L (4-34); AST 47 U/L (14-36); African American GFR (CKD) >90 (>60 ml/min/1.73 sqM); Albumin 3.3 g/dL (3.5-5.0); Albumin/Globulin Ratio 0.9; Alkaline Phosphatase 248 U/L (38-126); Anion Gap 7 mmol/L; Blood Urea Nitrogen 16 mg/dL (7-17); Calcium 9.2 mg/dL (8.4-10.2); Carbon Dioxide 27 mmol/L (22-30); Chloride 103 mmol/L (98-107); Globulin 3.7 g/dL; Glucose 93 mg/dL (74-99); Non-African American GFR(CKD) 87 (>60 ml/min/1.73 sqM); Sodium 137 mmol/L (137-145); Total Bilirubin 1.1 mg/dL (0.2-1.3)
[2021-06-13 11:05] VITALS: BP 104/70; PULSE 101; RESP 16; TEMP 97.7
[2021-06-13] MEDS: MULTIVITAMINS, THERA 1 EACH TAB PO SCH (12:30)
[2021-06-13] MEDS: BARICITINIB 2 MG TABLET PO SCH (12:30)
--- NOTE | 2021-06-13 13:34 | P.PN ---
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 The patient apparently has not been feeling well for at least a couple weeks. She apparently tested positive for coronavirus back on May 23. Early on, she mostly had nasal congestion and drainage. More recently, she's been feeling worse, but she over the last 4 or 5 days. She apparently started having difficulty breathing over the weekend, her home pulse ox saturation was only 79%. She had fever and chills. For that reason, she came to the emergency room to be evaluated was minute with a diagnosis of hypoxemic respiratory failure secondary to coronavirus associated pneumonia. The patient is on vaccinated. She has no significant past medical history save for ALLERGIES, and hypothyroidism.. She does not use tobacco products. Her family doctor is Dr. Lopes. Currently, she is on 4 L nasal cannula. She's not receiving any IV fluids. Her white count was 11.3, hemoglobin 12.1, hematocrit 37.3, platelet count 374,000. D-dimer was 9.45. Sodium was 136. The rest of the electrolyte profile looks good. Calcium 8.1 bilirubin 1.6 AST 77 ALT 88 and albumin 2.6. Testing here for coronavirus was positive. Chest x- ray shows diffuse bilateral infiltrates. CAT scan was negative for pulmonary embolism but did reveal significant bilateral groundglass opacities. The patient is seen today 06/05/2021 in follow-up on the regular medical floor. She is currently resting comfortably in bed. Awake and alert in no acute distress. She is still coughing. She still is congested. She is requiring 6 L high flow nasal cannula now to maintain O2 saturation the high 80s low 90s. No fever or chills. No hemoptysis. She is currently on Decadron, Lovenox, vitamin supplements. White count 12.3. Hemoglobin 9.8. Lymphocytes 0.7. Sodium 140. Potassium 3.5. Creatinine 0.6. Glucose 120. The patient is seen today 06/06/2021 in follow-up on the regular medical floor. She is awake and alert in no acute distress. She is requiring 15 L high flow nasal cannula to maintain O2 saturations in the high 80s low 90s. She is doing about the same compared to yesterday. No worsening shortness of breath. Not much improvement though. chest x-ray shows diffuse bilateral infiltrates consistent with COVID-19 pneumonia. She is continued on Decadron, Lovenox, vitamin supplements. The patient is seen today 06/07/2021 follow-up on the regular medical floor. She is currently sitting up in a chair at the bedside. Awake and alert in no acute distress. Doing about the same today compared to yesterday. No worse. May be slightly better. She is requiring 13 L high flow nasal cannula to maintain O2 saturations at 91%. She was initiated on Baricitinib. She is continued on Decadron, Lovenox and vitamin supplements. Remains on Symbicort a nd albuterol. White count 13.1. Hemoglobin 9.4. Sodium 136. Potassium 3.7. Creatinine 0.66. LDH 524. C-reactive protein 9.1. The patient is seen today 06/10/2021 in follow-up on the regular medical floor. She is currently sitting up in bed. Awake and alert in no acute distress. She is currently on 11 L high flow nasal cannula to maintain O2 saturation in the low 90s. She has been initiated on a heparin drip due to a positive DVT in the left lower extremity. She is also on Baricitinib, Decadron, vitamin supplements. She is continued on Symbicort, albuterol, Singulair. Robitussin as needed. Chest x-ray continues to show bilateral airspace disease. No evidence of pneumothorax. WBC 12.0. Hemoglobin 11.5. Leukocytes 2.3. Sodium 136. Potassium 4.1. Creatinine 0.77. AST 35. ALT 47. LDH 1148. C-reactive protein 6.0. The patient is seen today 06/11/2021 in follow-up on the regular medical floor. She is awake and alert in no acute distress. Sitting up at the bedside. Feeling better today compared to yesterday. She remains on 15 L high flow nasal cannula. Yesterday afternoon. White count 13.6. Hemoglobin 11.9. Lymphocytes 1.9. Sodium 134. Potassium 4.1. Creatinine 0.8. AST 50. ALT 59. Alk phos 188. She is continued on Decadron, Eliquis, vitamin supplements. She remains on Baricitinib. The patient is seen today 06/12/2021 in follow-up on the regular medical floor. She is sitting up in bed. Awake and alert in no acute distress. Breathing a bit better today compared to yesterday. Still with a dry nonproductive cough. Maintaining O2 saturations in the 90s on 9 L high flow nasal cannula. She remains afebrile. Hemodynamically stable. Today's chest x-ray showing some improvement in the bilateral patchy densities however there is some pneumomediastinum and with lucency noted adjacent to the left heart border. There is also subcutaneous emphysema over the right neck area. No definite pneumothorax or pleural effusion. White count 13.7. Hemoglobin 11.8. Sodium 134. Potassium 4.5. BUN 17. Creatinine 0.75. AST 73. ALT 113. LDH 1003. C-reactive protein 7.5. She is continued on Baricitinib, Eliquis, Decadron and vitamin supplements. Maintained on Symbicort and Ventolin. The patient is seen today for thyroid 2020 follow-up on the regular medical floor. She is sitting up in a chair at the bedside. Awake and alert in no acute distress. Doing quite a bit better. Down to 5 L high flow nasal cannula and maintaining O2 saturation the high 80s low 90s. White count 14.7. Hemoglobin 12.2. Sodium 137. Potassium 4.1. BUN 16. Creatinine 0.77. AST 47. ALT 107. She is continued on Eliquis, Baricitinib, Decadron and vitamin supplements. Remains on Symbicort and albuterol. Objective - Vital Signs Vital signs: Vital Signs Temp 97.7 F 06/13/21 10:20 Pulse 101 H 06/13/21 10:20 Resp 16 06/13/21 10:20 BP 104/70 06/13/21 10:20 Pulse Ox 90 L 06/13/21 10:20 Intake & Output 06/12/21 06/13/21 06/13/21 18:59 06:59 18:59 Intake Total 296 Balance 296 Intake: Oral 296 Other: # Voids 4 3 - Exam GENERAL EXAM: Alert, very pleasant 55-year-old female, on 5 L high flow nasal cannula comfortable in no apparent distress. HEAD: Normocephalic. EYES: Normal reaction of pupils, equal size. NOSE: Clear with pink turbinates. THROAT: No erythema or exudates. NECK: No masses, no JVD. CHEST: No chest wall deformity. LUNGS: Equal air entry with minimal crackles in the posterior bases. CVS: S1 and S2 normal with no audible murmur, regular rhythm. ABDOMEN: No hepatosplenomegaly, normal bowel sounds, no guarding or rigidity. SPINE: No scoliosis or deformity SKIN: No rashes CENTRAL NERVOUS SYSTEM: No focal deficits, tone is normal in all 4 extremities. EXTREMITIES: There is no peripheral edema. No clubbing, no cyanosis. Peripheral pulses are intact. - Labs CBC & Chem 7: 06/13/21 08:50 06/13/21 08:50 Labs: Abnormal Lab Results - Last 24 Hours (Table) 06/13/21 06/13/21 Range/Units 08:50 08:50 WBC 14.7 H (3.8-10.6) k/uL Neutrophils # 11.4 H (1.3-7.7) k/uL AST 47 H (14-36) U/L ALT 107 H (4-34) U/L Alkaline Phosphatase 248 H (38-126) U/L Albumin 3.3 L (3.5-5.0) g/dL Assessment and Plan Assessment: 1 Acute hypoxemic respiratory failure secondary to coronavirus associated pneumonia. Outside the window for Remdesivir. Initiated on Baricitinib 06/06/2021. Chest x-ray reveals possible pneumomediastinum with lucency noted adjacent to the left heart border. There is some subcutaneous emphysema on the right neck. No definite pneumothorax or pleural effusion. 2 Acute DVT of the left lower extremity. Initiated on heparin drip 06/08/2021 and subsequently transitioned to Eliquis. 3 History of hypothyroidism. 4 History of environmental ALLERGIES. 5 Patient is unvaccinated. Plan: The patient was seen and evaluated Improved and down to 5 L high flow nasal cannula She is cleared for discharge from the pulmonary standpoint Complete a 10 day course of Decadron Continue bronchodilators for now Follow-up in the office in 2-3 weeks I, the cosigning physician, performed a history & physical examination of the patient. Lungs sounds minimal crackles bilaterally. Maintaining O2 saturations in the 90s on 5 L high flow nasal cannula. I discussed the assessment and plan of care with my nurse practitioner, Barbara Sue. I attest to the above note as dictated by her. I have personally seen and examined the patient, performed the documentation and the assessment and plan as written. Number of minutes spent on the visit: 10.
--- NOTE | 2021-06-14 01:30 | P.DS ---
Providers Date of admission: 06/04/21 13:28 Expected date of discharge: 06/13/21 Attending physician: Grover Rivero MD Consults: 06/04/21 13:28 Consult Physician Urgent Consulting Provider: Joe Adorno Reason/Comments: COVID pneumonia Do you want consulting provider notified?: Yes Primary care physician: Payal Donohue Hospital Course: Final diagnosis Acute covid 19 infection with bilateral interstitial pneumonia with acute hypoxic respiratory failure Elevated liver function tests, possibly secondary to covid 19 Left lower extremity deep vein thrombosis Mild hyponatremia, improved hypothyroidism elevated d-dimer with no evidence of PE on CT dvt prophylaxis GI prophylaxis Full code Discharge disposition Patient is being discharged in a stable condition with guarded prognosis to home. Patient will follow-up with Dr. Donohue upon discharge. Patient will continue with a short course of oral dexamethasone taper to complete the course. Patient to continue vitamin supplements. Patient will follow up with pulmonary in 2-3 weeks. Patient to go home on 5L 02 via [place] secondary to Covid 19. Total time taken is greater than 35 minutes. Hospital course This is an 55-year-old female who was recently admitted with worsening shortness of breath and diagnosed with Covid 19 on the 4th of this month and was being closely monitored. Pulmonary was following and patient will follow up with them in the outpatient setting. Patient to continue with inhalers, and oral dexamethasone taper along with vitamin supplements. Patient continues on 10mg twice daily Eliquis and instructed to taper the dose to 5mg BID after 06/16. Encouraged fluids and rest, proning, encouraging oral intake, and activity as tolerated. Patient to wean off 02 slowly under close monitoring. Recommended pulse oximeter monitoring. Currently no reports of chest pain, worsening shortness of breath, or palpitations. Patient is afebrile. No reports of nausea or vomiting and patient is tolerating diet. Patient will be discharged home today. PHYSICAL EXAMINATION: GENERAL: The patient is alert and oriented, well developed, well nourished. currently on 5L HF HEENT: Pupils are round and equally reacting to light. EOMI. does have scleral icterus. No conjunctival pallor. Normocephalic, atraumatic. No pharyngeal erythema. No thyromegaly. CARDIOVASCULAR: S1 and S2 muffled PULMONARY: diminished breath sounds bilaterally with Few scattered coarse rhonchi noted. dry cough on exam, no accessory muscle use ABDOMEN: soft. non-tender. Non-distended, normoactive bowel sounds. No palpable organomegaly. MUSCULOSKELETAL: No joint swelling or deformity. EXTREMITIES: No cyanosis, clubbing, or pedal edema. NEUROLOGICAL: Gross neurological examination did not reveal any focal deficits. SKIN: No rashes. Please refer to medication reconciliation sheet for a list of medications. The impression and plan of care has been dictated by Monica Rodriguez, nurse practitioner as directed. MD Stephon I have performed a history and examination and MDM of this patient, discussed the same with the dictator, and agree with the dictator's assessment and plan as written ,documented as a scribe. Based on total visit time, I have performed more than 50% of the visit. Any additional findings or plans will be noted. Patient Condition at Discharge: Good Plan - Discharge Summary Discharge Rx Participant: Yes New Discharge Prescriptions: New Apixaban [Eliquis Starter Pack (for VTE)] 5 - 10 mg PO DIRECTED 30 Days #1 each Cholecalciferol [Vitamin D3 (125 Mcg = 5000 Iu)] 125 mcg PO DAILY #30 tablet Nystatin 100,000 Unit/ml Susp [Mycostatin Oral Susp] 5 ml PO QID 7 Days #140 ml Albuterol Inhaler [Ventolin Hfa Inhaler] 2 puff INHALATION RT-TID 30 Days #1 gm Albuterol Inhaler [Ventolin Hfa Inhaler] 2 puff INHALATION RT-TID PRN gm PRN Reason: Shortness Of Breath Or Wheezing dexAMETHasone ORAL [Hexadrol] 4 mg PO DAILY 5 Days #10 tab Continue Beclomethasone Dipropionate [Qnasl Children] 2 spray EA NOSTRIL DAILY Levothyroxine Sodium [Synthroid] 25 mcg PO DAILY Montelukast [Singulair] 10 mg PO HS RABEprazole SODIUM 20 mg PO DAILY Ibuprofen [Motrin Ib] 600 mg PO Q8H PRN PRN Reason: Pain Or Fever > 100.5 methylPREDNISolone [Medrol Dose Pack] See Taper PO DAILY Fexofenadine/Pseudoephedrine [Carolynn-D 24 Hour Tablet] 1 tab PO DAILY Discharge Medication List Beclomethasone Dipropionate [Qnasl Children] 2 spray EA NOSTRIL DAILY 08/30/15 [History] Levothyroxine Sodium [Synthroid] 25 mcg PO DAILY 08/30/15 [History] Montelukast [Singulair] 10 mg PO HS 08/30/15 [History] Fexofenadine/Pseudoephedrine [Carolynn-D 24 Hour Tablet] 1 tab PO DAILY 06/04/21 [History] Ibuprofen [Motrin Ib] 600 mg PO Q8H PRN 06/04/21 [History] RABEprazole SODIUM 20 mg PO DAILY 06/04/21 [History] methylPREDNISolone [Medrol Dose Pack] See Taper PO DAILY 06/04/21 [History] Apixaban [Eliquis Starter Pack (for VTE)] 5 - 10 mg PO DIRECTED 30 Days #1 each 06/09/21 [Rx] Albuterol Inhaler [Ventolin Hfa Inhaler] 2 puff INHALATION RT-TID 30 Days #1 gm 06/13/21 [Rx] Albuterol Inhaler [Ventolin Hfa Inhaler] 2 puff INHALATION RT-TID PRN gm 06/13/21 [Rx] Cholecalciferol [Vitamin D3 (125 Mcg = 5000 Iu)] 125 mcg PO DAILY #30 tablet 06/13/21 [Rx] Nystatin 100,000 Unit/ml Susp [Mycostatin Oral Susp] 5 ml PO QID 7 Days #140 ml 06/13/21 [Rx] dexAMETHasone ORAL [Hexadrol] 4 mg PO DAILY 5 Days #10 tab 06/13/21 [Rx] Follow up Appointment(s)/Referral(s): Valarie Rajput MD [STAFF PHYSICIAN] - 07/11/21 10:15 am (With [facility]) [facility] [NON-STAFF] - As Needed (oxygen ) Payal Donohue DO [Primary Care Provider] - 06/17/21 9:00 am (in [place] office. Please wear mask call office when arrive and remain in car untill office gets you) Patient Instructions/Handouts: Coronavirus Disease 2019 (COVID-19) Activity/Diet/Wound Care/Special Instructions: Activity Limited until follow-up Follow-up with primary care provider on discharge Follow-up with pulmonary outpatient as scheduled Continue taking medications as prescribed Continue using incentive spirometer at least 10 times every hour while awake Continue with prone position while sleeping and lateral position Encourage fluids and rest Monitor for any worsening signs of shortness of breath and called 911 or report to the nearest emergency room Patient to continue with Eliquis 10 mg twice daily and then after 06/16/2021 titrate the dose down to 5 mg twice daily thereafter Discharge Disposition: HOME SELF-CARE
== END 2021-06-13 14:28 | disposition home or self-care (01) | DRG 177 ==
LOC: EC 11:13 → SUPCPDRO 11:13 → 4SSUR 13:28
PROVIDERS: ADMIT Internal Medicine; ATTEND Internal Medicine
PROC: XW0DXM6 Introduction of Baricitinib into Mouth and Pharynx, External Approach, New Technology Group 6 (ICD-10-PCS; principal; 2021-06-06)
DX: U07.1 COVID-19 (principal); J12.82 Pneumonia due to coronavirus disease 2019; J96.01 Acute respiratory failure with hypoxia; I82.4Z2 Acute embolism and thrombosis of unspecified deep veins of left distal lower extremity; E87.1 Hypo-osmolality and hyponatremia; I82.452 Acute embolism and thrombosis of left peroneal vein; J98.2 Interstitial emphysema; Z79.01 Long term (current) use of anticoagulants; E03.9 Hypothyroidism, unspecified; Z79.890 Hormone replacement therapy; Z79.899 Other long term (current) drug therapy; Z82.3 Family history of stroke; Z82.5 Family history of asthma and other chronic lower respiratory diseases; Z83.3 Family history of diabetes mellitus; Z83.2 Family history of diseases of the blood and blood-forming organs and certain disorders involving the immune mechanism; Z80.3 Family history of malignant neoplasm of breast; Z83.49 Family history of other endocrine, nutritional and metabolic diseases; R94.5 Abnormal results of liver function studies; R79.1 Abnormal coagulation profile; Z88.0 Allergy status to penicillin; Z91.048 Other nonmedicinal substance allergy status
CPT/HCPCS: 36415; 71045; 71046; 71275; 80048; 80053; 81003; 83615; 84145; 85025; 85379; 85610; 85730; 86140; 87040; 87635; 93005; 93970; 94640; 94760; 96361; 96365; 96375; 99285

== ENCOUNTER → 2021-09-02 | Outpatient (CLI) | payer MEDICAID ==
--- NOTE | 2021-09-03 17:21 | US ---
EXAMINATION TYPE: US pelvis complete transvag DATE OF EXAM: 09/02/2021 COMPARISON: US 2020 CLINICAL HISTORY: N93.9 ABNORMAL UTERINE AND VAGINAL BLEEDING, UNSPECIFIED. Heavy period last month, irregular cycles TECHNIQUE: . Transabdominal sonographic images of the pelvis were acquired. Transvaginal sonographi c images were medically necessary to better assess the following anatomy: ovaries Date of LMP: 08/25/2021 EXAM MEASUREMENTS: Uterus: 14.4 x 4.9 x 6.2 cm Endometrial Stripe: 0.6 cm Right Ovary: not seen Left Ovary: not seen 1. Uterus: enlarged, heterogeneous, multiple nabothian cysts 2. Endometrium: appears wnl 3. Right Ovary: not seen due to overlying bowel gas 4. Left Ovary: not seen due to overlying bowel gas 5. Bilateral Adnexa: wnl 6. Posterior cul-de-sac: wnl IMPRESSION: 1. No suspicious acute changes pelvic ultrasound.
== END | disposition home or self-care (01) ==
LOC: RADUSWWP 16:05
PROVIDERS: ATTEND Obstetrics & Gynecology
DX: N93.9 Abnormal uterine and vaginal bleeding, unspecified (principal)
CPT/HCPCS: 76830; 76856

== ENCOUNTER → 2021-09-26 | Outpatient (CLI) | payer MEDICAID ==
--- NOTE | 2021-09-26 08:18 | US ---
EXAMINATION TYPE: US venous doppler duplex LE LT DATE OF EXAM: 09/26/2021 7:16 AM COMPARISON: NONE CLINICAL HISTORY: SWELLING LEFT LOWER LIMB R22.42. Hx of DVT in May. Patient was on blood thinne rs, but stopped at the end of August. SIDE PERFORMED: Left TECHNIQUE: The lower extremity deep venous system is examined utilizing real time linear array sonog kandy with graded compression, doppler sonography and color-flow sonography. VESSELS IMAGED: Common Femoral Vein Deep Femoral Vein Greater Saphenous Vein * Femoral Vein Popliteal Vein Small Saphenous Vein * Proximal Calf Veins (* superficial vessels) Left Leg: Negative for DVT IMPRESSION: 1. Left lower extremity ultrasound negative for deep venous thrombosis.
== END | disposition home or self-care (01) ==
LOC: RADUSWWP 06:54
PROVIDERS: ATTEND Internal Medicine Critical Care Medicine
DX: R22.42 Localized swelling, mass and lump, left lower limb (principal)

== ENCOUNTER → 2021-09-29 | Outpatient (CLI) | payer MEDICAID ==
--- NOTE | 2021-10-02 12:58 | BMR ---
EXAMINATION TYPE: MR breast BILAT wo/w con DATE OF EXAM: 09/29/2021 COMPARISON: Prior MRI bilateral breasts June 26, 2020 and older studies HISTORY: ABN AND INCONCLUSIVE FINDINGS ON DX IMAGING TECHNIQUE: A series of fat and water weighted images in the long and short axis views of both breasts are obtained in conjunction with dynamic contrast MRI with subtraction technique. The patient was i njected with 8 mL intravenous Gadavist gadolinium contrast. Three-dimensional and additional postpr ocessing imaging is created on independent workstation and reviewed during official interpretation of this study. FINDINGS: Extremely dense fibroglandular tissue bilaterally is once again redemonstrated. T2 and STIR weighted images redemonstrate multiple scattered thin-walled small and tiny cysts bilaterally on michi kground dense fibroglandular tissue. There is persistent ductal prominence or dilatation in the subar eolar region of both breasts bilaterally redemonstrated. Subcentimeter benign lymph nodes are redemonstrated and unchanged in the bilateral axilla. No suspici ous new axillary adenopathy. Dynamic postcontrast images show persistent moderate to severe backgroun d fibroglandular enhancement with linear and tiny nodular components, making evaluation slightly subo ptimal. Delayed dynamic postcontrast imaging shows no suspicious new intramammary adenopathy. With regards to the right breast there is a stable oval well-defined 1.9 cm lesion just below level o f nipple in the outer inferior quadrant anterior depth of T1 slight hyperintensity and T2 hyperintens ity without enhancement felt to reflect a dominant proteinaceous cyst. . Just medial and superior to this at subareolar region right breast there is stable 4 mm enhancing round lesion not well visualize d on T1 and T2-weighted images seen for reference series 701 image 626 current study. Stability sugge sts benign etiology. There is no new pathologic enhancement or enhancing masses identified. No suspic ious skin thickening is seen. Chest wall is intact. With regards to the left breast, there is artifact from biopsy clip noted mid to posterior depth medi al aspect just below level of nipple axial image 709 series 701 near 9 to 10:00 position redemonstrat ed. No new pathologic enhancement or focal enhancing masses. Small area of linear enhancement outer a nterior left breast just above the nipple is unchanged from several prior MRIs. No suspicious skin th ickening. Chest wall is intact. Incidental stable 7 mm thin-walled cyst anterior right hepatic lobe axial image 8 series 301 redemons trated. IMPRESSION: No MRI evidence for new invasive malignancy in either breast. BI-RADS 2 benign findings right breast. BI-RADS 2 benign findings left breast. Recommendation: Annual MRI surveillance advised in high risk patients. Annual bilateral breast mammog zaid advised.
== END | disposition home or self-care (01) ==
LOC: RADMRIMAIN 08:09
PROVIDERS: ATTEND Obstetrics & Gynecology
DX: R92.8 Other abnormal and inconclusive findings on diagnostic imaging of breast (principal)
CPT/HCPCS: 77049; C8937; A9585

== ENCOUNTER → 2022-04-24 | Outpatient (CLI) | payer MEDICAID ==
--- NOTE | 2022-04-24 12:08 | MM ---
Reason for Exam: Screening (asymptomatic). Last mammogram was performed 1 year(s) and 1 month(s) ago. Patient History: Menarche at age 13. First Full-Term at age 31. Late child-bearing (after 30). Perimenopausal. 2013, Benign Ultrasound-Guided Core Biopsy on the left side. Mother had breast cancer, age 60. Risk Values: [place] 5 year model risk: 2.9%. NCI Lifetime model risk: 18.1%. Prior Study Comparison: 02/20/2014 Screening Mammogram, Unknown. 04/02/2015 Screening Mammogram, Unknown. 04/10/2021 Bilateral Screening Mammogram, [facility]. Tissue Density: The breast tissue is extremely dense which could obscure a lesion on mammography. Findings: Analyzed By CAD. Pattern appears symmetrical and stable. Couple of scattered benign calcifications are within the right breast. There appears to be a stable rounded density within the upper outer anterior right breast. Biopsy markers within the left breast. No suspicious groups of microcalcifications, spiculated or lobular masses, architectural distortion or other secondary signs of malignancy are mammographically apparent. Overall Assessment: Benign, BI-RAD 2 Management: Screening Mammogram of both breasts in 1 year. A negative mammogram report should not preclude additional follow up of suspicious palpable abnormalities. Patient should continue monthly self breast exam. A clinical breast exam by your physician is recommended on an annual basis and results should be correlated with mammographic findings. Electronically signed and approved by: Raji Marsh D.O. Radiologis
== END | disposition home or self-care (01) ==
LOC: RADMAMWWP 07:20
PROVIDERS: ATTEND Obstetrics & Gynecology
DX: Z12.31 Encounter for screening mammogram for malignant neoplasm of breast (principal); Z80.3 Family history of malignant neoplasm of breast
CPT/HCPCS: 77063; 77067

== ENCOUNTER 2022-12-10 12:09 | Emergency (ER) | payer MEDICAID ==
[2022-12-10] MEDS ORDERED: SODIUM CHLORIDE 0.9% 1,000 ML IV STA (12:41)
[2022-12-10] MEDS ORDERED: MECLIZINE 12.5 MG TAB PO STA (12:41)
--- NOTE | 2022-12-10 12:44 | ED ---
General Adult HPI - General Chief complaint: Dizziness Stated complaint: Nausea, Dizziness Time Seen by Provider: 12/10/22 12:35 Source: patient, RN notes reviewed Mode of arrival: ambulatory Limitations: no limitations - History of Present Illness Initial comments: Patient is a pleasant 57-year-old female presenting to the emergency department with lightheadedness. Onset of symptoms was a couple hours ago. Patient states she feels more lightheaded when she stands up. Patient did have some mild nausea associated with this. No history of similar symptoms previously. Patient denies spinning type sensation. No confusion or speech problems. No weakness. - Related Data Home Medications Medication Instructions Recorded Confirmed Beclomethasone Dipropionate [Qnasl 2 spray EA NOSTRIL DAILY 08/30/15 06/04/21 Children] Levothyroxine Sodium [Synthroid] 25 mcg PO DAILY 08/30/15 06/04/21 Montelukast [Singulair] 10 mg PO HS 08/30/15 06/04/21 Fexofenadine/Pseudoephedrine 1 tab PO DAILY 06/04/21 06/04/21 [Carolynn-D 24 Hour Tablet] Ibuprofen [Motrin Ib] 600 mg PO Q8H PRN 06/04/21 06/04/21 RABEprazole SODIUM 20 mg PO DAILY 06/04/21 06/04/21 methylPREDNISolone [Medrol Dose See Taper PO DAILY 06/04/21 06/04/21 Pack] Previous Rx's Medication Instructions Recorded Apixaban [Eliquis Starter Pack 5 - 10 mg PO DIRECTED 30 Days 06/09/21 (for VTE)] #1 each Albuterol Inhaler [Ventolin Hfa 2 puff INHALATION RT-TID 30 Days 06/13/21 Inhaler] #1 gm Albuterol Inhaler [Ventolin Hfa 2 puff INHALATION RT-TID PRN gm 06/13/21 Inhaler] Cholecalciferol [Vitamin D3 (125 125 mcg PO DAILY #30 tablet 06/13/21 Mcg = 5000 Iu)] Nystatin 100,000 Unit/ml Susp 5 ml PO QID 7 Days #140 ml 06/13/21 [Mycostatin Oral Susp] dexAMETHasone ORAL [Hexadrol] 4 mg PO DAILY 5 Days #10 tab 06/13/21 Allergies Allergy/AdvReac Type Severity Reaction Status Date / Time Penicillins Allergy Rash/Hives Verified 12/10/22 12:30 Enviro: dust, cat, tree Allergy Mild Stuffy Uncoded 12/10/22 12:30 mold,pollen nose, sneezing Review of Systems ROS Statement: Those systems with pertinent positive or pertinent negative responses have been documented in the HPI. ROS Other: All systems not noted in ROS Statement are negative. Constitutional: Denies: fever Eyes: Denies: eye pain ENT: Denies: ear pain Respiratory: Denies: cough Cardiovascular: Denies: chest pain Endocrine: Denies: fatigue Gastrointestinal: Denies: abdominal pain Genitourinary: Denies: dysuria Musculoskeletal: Denies: back pain Skin: Denies: rash Neurological: Denies: headache, weakness Past Medical History Past Medical History: Thyroid Disorder Additional Past Medical History / Comment(s): ENVIRONMENTAL ALLERGIES History of Any Multi-Drug Resistant Organisms: None Reported Past Surgical History: Appendectomy, Orthopedic Surgery, Tonsillectomy Additional Past Surgical History / Comment(s): sx: appy 1969, 1970 tonsils, 1984 arthroscopic left knee sx, leep excision 1987 Past Anesthesia/Blood Transfusion Reactions: No Reported Reaction Past Psychological History: No Psychological Hx Reported Smoking Status: Never smoker Past Alcohol Use History: None Reported Past Drug Use History: None Reported - Past Family History Mother Family Medical History: Cancer, CVA/TIA, Mitral Valve Prolapse (MVP) Additional Family Medical History / Comment(s): ca: breast. mitral valve replaced. mom had blood clots Father Family Medical History: COPD, Thyroid Disorder Additional Family Medical History / Comment(s): mom had diabetes General Exam Limitations: no limitations General appearance: alert, in no apparent distress Head exam: Present: normocephalic Eye exam: Present: normal appearance, PERRL, EOMI ENT exam: Present: normal oropharynx Neck exam: Present: normal inspection Respiratory exam: Present: normal lung sounds bilaterally Cardiovascular Exam: Present: regular rate, normal rhythm GI/Abdominal exam: Present: soft. Absent: tenderness Extremities exam: Present: normal inspection Neurological exam: Present: alert, oriented X3, CN II-XII intact. Absent: motor sensory deficit Expanded Neurological exam: Present: protecting the airway Speech: Present: fluid speech Cranial nerves: EOM's Intact: Normal Sensory exam: Upper Extremity Light Touch: Normal, Lower Extremity Light Touch: Normal Motor strength exam: RUE: 5, LUE: 5, RLE: 5, LLE: 5 Eye Response: (4) open spontaneously Motor Response: (6) obeys commands Verbal Response: (5) oriented Psychiatric exam: Present: normal affect, normal mood Skin exam: Present: normal color Course Vital Signs 12/10/22 12/10/22 12/10/22 12:27 13:30 14:20 Temperature 97.9 F Pulse Rate 81 79 Pulse Rate [ 70 Fsr ] Respiratory 20 18 18 Rate Blood Pressure 116/66 126/85 Blood Pressure 126/79 [Right Arm Sitting] Blood Pressure 133/82 [Right Arm Standing] Blood Pressure 122/73 [Right Arm Supine] O2 Sat by Pulse 100 100 100 Oximetry EKG Findings - EKG Results: EKG: interpreted by SUMAN, sinus rhythm, normal axis, normal QRS, normal ST/T Medical Decision Making - Medical Decision Making Was pt. sent in by a medical professional or institution (, PA, UTILITIES SERVICE INVESTIGATOR, urgent care, hospital, or custodial...) When possible be specific @ -No Did you speak to anyone other than the patient for history (EMS, parent, family, police, friend...)? What history was obtained from this source @ -No Did you review nursing and triage notes (agree or disagree)? Why? @ -I reviewed and agree with nursing and triage notes Were old charts reviewed (outside hosp., previous admission, EMS record, old EKG, old radiological studies, urgent care reports/EKG's, custodial records)? Report findings @ -No old charts were reviewed Differential Diagnosis (chest pain, altered mental status, abdominal pain women, abdominal pain men, vaginal bleeding, weakness, fever, dyspnea, syncope, headache, dizziness, GI bleed, back pain, seizure, CVA, palpatations, mental health, musculoskeletal)? @ -Differential Dyspnea: Coronary syndrome, arrhythmia, tamponade, asthma, COPD, pulmonary embolism, pneumonia, pneumothorax, pulmonary effusion, anaphylaxis, diabetic ketoacidosis, flailed chest, pulmonary contusion, diaphragmatic rupture, anemia, neuromuscular, this is not meant to be an all-inclusive list. EKG interpreted by me (3pts min.). @ -As above X-rays interpreted by me (1pt min.). @ -Chest x-ray shows no acute process CT interpreted by me (1pt min.). @ -None done U/S interpreted by me (1pt. min.). @ -None done What testing was considered but not performed or refused? (CT, X-rays, U/S, labs)? Why? @ -None What meds were considered but not given or refused? Why? @ -None Did you discuss the management of the patient with other professionals (professionals i.e. Dr., PA, UTILITIES SERVICE INVESTIGATOR, lab, RT, psych nurse, social welfare research worker, production control coordinating clerk, teacher, chief development officer, case finisher)? Give summary @ -No Was smoking cessation discussed for >3mins.? @ -No Was critical care preformed (if so, how long)? @ -No Were there social determinants of health that impacted care today? How? (Homelessness, low income, unemployed, alcoholism, drug addiction, transportation, low edu. Level, literacy, decrease access to med. care, [place] [facility], rehab)? @ -No Was there de-escalation of care discussed even if they declined (Discuss DNR or withdrawal of care, Hospice)? DNR status @ -No What co-morbidities impacted this encounter? (DM, HTN, Smoking, COPD, CAD, Cancer, CVA, ARF, Chemo, Hep., AIDS, mental health diagnosis, sleep apnea, morbid obesity)? @ -None Was patient admitted / discharged? Hospital course, mention meds given and route, prescriptions, significant lab abnormalities, going to OR and other pertinent info. @ -Patient reevaluated and resting complain bed. Patient is feeling much better and symptom free at this time. Patient is updated on results and need for follow-up. Undiagnosed new problem with uncertain prognosis? @ -No Drug Therapy requiring intensive monitoring for toxicity (Heparin, Nitro, Insulin, Cardizem)? @ -No Were any procedures done? @ -No Diagnosis/symptom? @ -Dizziness Acute, or Chronic, or Acute on Chronic? @ -Acute Uncomplicated (without systemic symptoms) or Complicated (systemic symptoms)? @ -default Side effects of treatment? @ -No Exacerbation, Progression, or Severe Exacerbation? @ -No Poses a threat to life or bodily function? How? (Chest pain, USA, VT, pneumonia, PE, COPD, DKA, ARF, appy, cholecystitis, CVA, Diverticulitis, Homicidal, Suicida l, threat to staff... and all critical care pts) @ -No - Lab Data Result diagrams: 12/10/22 13:15 12/10/22 13:15 Lab Results 12/10/22 12/10/22 12/10/22 Range/Units 13:15 13:15 13:15 WBC 7.1 (3.8-10.6) k/uL RBC 4.57 (3.80-5.40) m/uL Hgb 14.0 (11.4-16.0) gm/dL Hct 41.8 (34.0-46.0) % MCV 91.5 (80.0-100.0) fL MCH 30.6 (25.0-35.0) pg MCHC 33.4 (31.0-37.0) g/dL RDW 12.9 (11.5-15.5) % Plt Count 270 (150-450) k/uL MPV 8.6 Neutrophils % 73 % Lymphocytes % 20 % Monocytes % 4 % Eosinophils % 1 % Basophils % 0 % Neutrophils # 5.2 (1.3-7.7) k/uL Lymphocytes # 1.4 (1.0-4.8) k/uL Monocytes # 0.3 (0-1.0) k/uL Eosinophils # 0.1 (0-0.7) k/uL Basophils # 0.0 (0-0.2) k/uL PT 10.0 (9.0-12.0) sec INR 0.9 (<1.2) APTT 21.1 L (22.0-30.0) sec Sodium 140 (137-145) mmol/L Potassium 4.3 (3.5-5.1) mmol/L Chloride 108 H (98-107) mmol/L Carbon Dioxide 25 (22-30) mmol/L Anion Gap 7 mmol/L BUN 13 (7-17) mg/dL Creatinine 0.71 (0.52-1.04) mg/dL Est GFR (CKD-EPI)AfAm >90 (>60 ml/min/1.73 sqM) Est GFR (CKD-EPI)NonAf >90 (>60 ml/min/1.73 sqM) Glucose 110 H (74-99) mg/dL Plasma Lactic Acid Thony (0.7-2.0) mmol/L Calcium 9.3 (8.4-10.2) mg/dL Magnesium 2.1 (1.6-2.3) mg/dL Total Bilirubin 0.5 (0.2-1.3) mg/dL AST 31 (14-36) U/L ALT 34 (4-34) U/L Alkaline Phosphatase 94 (38-126) U/L Troponin I (0.000-0.034) ng/mL Total Protein 6.9 (6.3-8.2) g/dL Albumin 4.1 (3.5-5.0) g/dL 12/10/22 12/10/22 Range/Units 13:15 13:15 WBC (3.8-10.6) k/uL RBC (3.80-5.40) m/uL Hgb (11.4-16.0) gm/dL Hct (34.0-46.0) % MCV (80.0-100.0) fL MCH (25.0-35.0) pg MCHC (31.0-37.0) g/dL RDW (11.5-15.5) % Plt Count (150-450) k/uL MPV Neutrophils % % Lymphocytes % % Monocytes % % Eosinophils % % Basophils % % Neutrophils # (1.3-7.7) k/uL Lymphocytes # (1.0-4.8) k/uL Monocytes # (0-1.0) k/uL Eosinophils # (0-0.7) k/uL Basophils # (0-0.2) k/uL PT (9.0-12.0) sec INR (<1.2) APTT (22.0-30.0) sec Sodium (137-145) mmol/L Potassium (3.5-5.1) mmol/L Chloride (98-107) mmol/L Carbon Dioxide (22-30) mmol/L Anion Gap mmol/L BUN (7-17) mg/dL Creatinine (0.52-1.04) mg/dL Est GFR (CKD-EPI)AfAm (>60 ml/min/1.73 sqM) Est GFR (CKD-EPI)NonAf (>60 ml/min/1.73 sqM) Glucose (74-99) mg/dL Plasma Lactic Acid Thony 1.2 (0.7-2.0) mmol/L Calcium (8.4-10.2) mg/dL Magnesium (1.6-2.3) mg/dL Total Bilirubin (0.2-1.3) mg/dL AST (14-36) U/L ALT (4-34) U/L Alkaline Phosphatase (38-126) U/L Troponin I <0.012 (0.000-0.034) ng/mL Total Protein (6.3-8.2) g/dL Albumin (3.5-5.0) g/dL Disposition Clinical Impression: Dizziness Disposition: HOME SELF-CARE Condition: Stable Instructions (If sedation given, give patient instructions): Dizziness (ED) Additional Instructions: Please do follow-up to primary care physician in the next day or 2 for recheck. Return for increased dizziness, fall or passing out, confusion or weakness, worsening symptoms or any other concerns. [id number] Antivert if needed. Is patient prescribed a controlled substance at d/c from ED?: No Referrals: Estuardo Santizo MD [STAFF PHYSICIAN] - 1-2 days Time of Disposition: 14:35
[2022-12-10 13:35] LABS: Basophils % (A) 0 %; Eosinophils # (A) 0.1 k/uL (0-0.7); Eosinophils % (A) 1 %; HCT 41.8 % (34.0-46.0); Lymphocytes # (A) 1.4 k/uL (1.0-4.8); Lymphocytes % (A) 20 %; MCH 30.6 pg (25.0-35.0); MCHC 33.4 g/dL (31.0-37.0); MCV 91.5 fL (80.0-100.0); Mean Platelet Volume 8.6; Monocytes # (A) 0.3 k/uL (0-1.0); Monocytes % (A) 4 %; Neutrophils # (A) 5.2 k/uL (1.3-7.7); Neutrophils % (A) 73 %; Platelet Count 270 k/uL (150-450); RBC 4.57 m/uL (3.80-5.40); RDW 12.9 % (11.5-15.5); WBC 7.1 k/uL (3.8-10.6)
--- NOTE | 2022-12-10 13:45 | XR ---
EXAMINATION TYPE: XR chest 2V DATE OF EXAM: 12/10/2022 COMPARISON: 06/12/2021 HISTORY: Shortness of breath TECHNIQUE: Frontal and lateral views of the chest are obtained. FINDINGS: Scattered senescent parenchymal changes noted. Hyperinflation compatible with COPD. No evidence for infiltrate. No evidence for atelectasis. Heart size is stable. Mediastinal structures are stable and grossly unremarkable. No evidence for hilar prominence. Degenerative changes dorsal spine. IMPRESSION: 1. No evidence for acute pulmonary disease.
[2022-12-10 13:49] LABS: ALT 34 U/L (4-34); AST 31 U/L (14-36); African American GFR (CKD) >90 (>60 ml/min/1.73 sqM); Albumin 4.1 g/dL (3.5-5.0); Alkaline Phosphatase 94 U/L (38-126); Anion Gap 7 mmol/L; Blood Urea Nitrogen 13 mg/dL (7-17); Calcium 9.3 mg/dL (8.4-10.2); Carbon Dioxide 25 mmol/L (22-30); Chloride 108 mmol/L (98-107); Glucose 110 mg/dL (74-99); Magnesium 2.1 mg/dL (1.6-2.3); Non-African American GFR(CKD) >90 (>60 ml/min/1.73 sqM); Potassium 4.3 mmol/L (3.5-5.1); Sodium 140 mmol/L (137-145); Total Bilirubin 0.5 mg/dL (0.2-1.3); Total Protein 6.9 g/dL (6.3-8.2)
[2022-12-10 13:52] LABS: INR 0.9 (<1.2)
[2022-12-10 13:56] LABS: Partial Thromboplastin Time 21.1 sec (22.0-30.0)
[2022-12-10 14:21] VITALS: RESP 18
[2022-12-10 14:22] VITALS: BP 126/85; PULSE 79
[2022-12-10 14:46] VITALS: TEMP 97.5
== END 2022-12-10 14:49 | disposition home or self-care (01) ==
LOC: EC 12:09
DX: R42 Dizziness and giddiness (principal); E07.9 Disorder of thyroid, unspecified; Z79.890 Hormone replacement therapy; Z88.0 Allergy status to penicillin; Z91.09 Other allergy status, other than to drugs and biological substances
CPT/HCPCS: 36415; 71046; 80053; 83605; 83735; 84484; 85025; 85610; 85730; 93005; 96360; 99284

== ENCOUNTER → 2023-08-19 | Outpatient (CLI) | payer MEDICAID ==
--- NOTE | 2023-08-20 09:15 | US ---
EXAMINATION TYPE: US pelvis complete transvag DATE OF EXAM: 08/19/2023 COMPARISON: US 2021 CLINICAL INDICATION: Female, 57 years old with history of N95.0 POSTMENOPAUSAL BLEEDING; Intermittent spotting, patient has IUD since December 2022 TECHNIQUE: Transabdominal sonographic images of the pelvis were acquired. Transvaginal sonographi c images were medically necessary to better assess the following anatomy: ovaries Date of LMP: December 2022 EXAM MEASUREMENTS: Uterus: 9.6 x 4.7 x 5.7 cm Endometrial Stripe: 0.7 cm Right Ovary: not seen Left Ovary: not seen 1. Uterus: heterogeneous, multiple nabothian cysts 2. Endometrium: IUD in place 3. Right Ovary: not seen due to overlying bowel gas 4. Left Ovary: not seen due to overlying bowel gas 5. Bilateral Adnexa: wnl 6. Posterior cul-de-sac: wnl IMPRESSION: 1. No uterine masses. 2. Limited evaluation endometrium due to IUD. 3. Limited evaluation the ovaries and adnexa due to bowel gas.
== END | disposition home or self-care (01) ==
LOC: RADUSWWP 15:30
PROVIDERS: ATTEND Obstetrics & Gynecology
DX: N95.0 Postmenopausal bleeding (principal)
CPT/HCPCS: 76830; 76856

== ENCOUNTER → 2023-08-26 | Outpatient (CLI) | payer MEDICAID ==
--- NOTE | 2023-08-29 14:59 | MM ---
Reason for Exam: Screening (asymptomatic). Last mammogram was performed 1 year(s) and 3 month(s) ago. Patient History: Menarche at age 13. First Full-Term at age 31. Late child-bearing (after 30). Perimenopausal. 2013, Benign Ultrasound-Guided Core Biopsy on the left side. Mother had breast cancer, age 60. Risk Values: Leesa 5 year model risk: 3.1%. NCI Lifetime model risk: 17.8%. Prior Study Comparison: 04/10/2021 Bilateral Screening Mammogram, [facility]. 04/24/2022 Bilateral MG 3D screening mammo w/cad, [facility]. 06/05/2022 Bilateral MG 3D diag mammo w/cad [facility], [facility]. Tissue Density: The breasts are heterogeneously dense, which may obscure small masses. Findings: Analyzed By CAD. Chronic nodularity on the right. Microclip left breast from prior biopsy as well as unchanged asymmetric densities on the left. There is no suspicious group of microcalcifications or new suspicious mass in either breast. Overall Assessment: Benign, BI-RAD 2 Management: Screening Mammogram of both breasts in 1 year. See note below in regards to patient's increased 5 year Leesa score. Patient should continue monthly self-breast exams. A clinical breast exam by your physician is recommended on an annual basis. This exam should not preclude additional follow-up of suspicious palpable abnormalities. Note on Leesa scores and lifetime risk: 1. A Leesa score greater than 3% is considered moderate risk. If this is the case, consider specialist referral to assess eligibility for a risk reducing agent. 2. If overall lifetime risk for the development of breast cancer is 20% or higher, the patient may qualify for future screening with alternating mammogram and breast MRI. Electronically signed and approved by: Delia Garcia M.D. Radiologist
== END | disposition home or self-care (01) ==
LOC: RADMAMWWP 07:40
PROVIDERS: ATTEND Obstetrics & Gynecology
DX: Z12.31 Encounter for screening mammogram for malignant neoplasm of breast (principal); Z80.3 Family history of malignant neoplasm of breast
CPT/HCPCS: 77063; 77067

== ENCOUNTER → 2024-04-06 | Outpatient (CLI) | payer MEDICAID ==
--- NOTE | 2024-04-10 07:26 | BMR ---
EXAM DATE: 04/06/2024 EXAM DESCRIPTION: MRI-Breast Bilat (W/WO Contrast) INDICATION: >20% lifetime risk for malignancy presenting for high risk surveillance COMPARISON: Comparison is made with relevant prior imaging in PACS. CONTRAST: 8 cc of Gadavist TECHNIQUE: Multiplanar MRI imaging of both breasts was performed with a dedicated breast coil, before and after intravenous administration of gadolinium contrast, using the standard breast mass protocol. Computer-aided detection was used to aid in interpretation. FINDINGS: General breast composition: The breast is heterogeneously dense Background parenchymal enhancement: Mild FINDINGS: Right Breast: Review of the dynamic contrast-enhanced series shows no rapidly enhancing masses, suspicious enhancement patterns or other abnormalities. The T2 weighted series shows no abnormality. Left Breast: Review of the dynamic contrast-enhanced series shows no rapidly enhancing masses, suspicious enhancement patterns or other abnormalities. The T2 weighted series shows no abnormality. There is a dermal focus of enhancement measuring 1 cm in the upper inner breast at posterior depth. IMPRESSION: No MRI evidence of malignancy in either breast. There is a 1 cm dermal focus of enhancement in the left inner breast, this is nonspecific and may represent area inflammation or a small skin lesion. Recommend clinical visual evaluation. BI-RADS Category1- Negative Recommendation: MRI screening in 1 year recommend routine screening on schedule, patient is due for screening mammogram in 08/2024. JAMESD
== END | disposition home or self-care (01) ==
LOC: RADMRIMAIN 15:31
PROVIDERS: ATTEND Obstetrics & Gynecology
DX: Z12.39 Encounter for other screening for malignant neoplasm of breast (principal); Z80.3 Family history of malignant neoplasm of breast
CPT/HCPCS: 77049; A9585

== ENCOUNTER → 2024-06-09 | Outpatient (CLI) | payer MEDICAID ==
--- NOTE | 2024-06-09 10:23 | US ---
EXAMINATION TYPE: US pelvis complete transvag DATE OF EXAM: 06/09/2024 COMPARISON: 08/19/23 CLINICAL INDICATION: Female, 58 years old with history of R10.2 PELVIC AND PERINEAL PAIN N95.0 POSTME NO BLEED; bleeding on and off for a couple years. IUD in. TECHNIQUE: Transvaginal (TV) and Transabdominal (TA) . Transabdominal grayscale sonographic images of the pelvis were acquired. Transvaginal sonographic im ages were medically necessary to better assess the following anatomy: Ovaries Doppler imaging: Not performed. FINDINGS: Date of LMP: unknown EXAM MEASUREMENTS: Uterus: 11.6 x 5.3 x 5.3 cm Endometrial Stripe: 0.5 cm Right Ovary: Not visualized due to bowel gas and atrophy. Left Ovary: Not visualized due to bowel gas and atrophy. 1. Uterus: Anteverted Multiple cystic and complex areas noted in the cervix. 2. Endometrium: appears wnl and IUD appears to be in place 3. Right Ovary: not seen due to atrophy and bowel gas 4. Left Ovary: not seen due to atrophy and bowel gas 5. Bilateral Adnexa: wnl 6. Posterior cul-de-sac: wnl IMPRESSION: 1. IUD within the endometrial canal. 2. Limitation with nonvisualization of the ovaries [facility], , 06/09/2024 10:20 AM
== END | disposition home or self-care (01) ==
LOC: RADUSWWP 09:25
PROVIDERS: ATTEND Obstetrics & Gynecology
DX: N95.0 Postmenopausal bleeding (principal)
CPT/HCPCS: 76830; 76856

== ENCOUNTER → 2024-10-19 | Outpatient (CLI) | payer MEDICAID ==
--- NOTE | 2024-10-19 16:29 | MM ---
Reason for Exam: Screening (asymptomatic). Last mammogram was performed 1 year(s) and 2 month(s) ago. Patient History: Menarche at age 13. First Full-Term at age 31. Late child-bearing (after 30). Hysterectomy at age 58. Postmenopausal. 2014, Benign Ultrasound-Guided Core Biopsy on the left side. Mother had breast cancer, age 60. Risk Values: Leesa 5 year model risk: 3.3%. NCI Lifetime model risk: 17.0%. Prior Study Comparison: 04/24/2022 Bilateral MG 3D screening mammo w/cad, [facility]. 06/05/2022 Bilateral MG 3D diag mammo w/cad [facility], [facility]. 08/26/2023 Bilateral MG 3D screening mammo w/cad, [facility]. Tissue Density: The breasts are heterogeneously dense, which may obscure small masses. Findings: Analyzed By CAD. Possible obscured underlying lobulated mass central left MLO view anterior to middle depth on 3-D images. No clear correlate on the CC view. Further evaluation is recommended. Microclip left breast from prior biopsy. Chronic nodularity anterior right breast. Otherwise, no significant change. Overall Assessment: Incomplete: need additional imaging evaluation, BI-RAD 0 Management: Special View Mammogram of the left breast. [facility] will attempt to contact patient to return for supplemental views and ultrasound if indicated. [facility], , 10/19/2024 4:26 PM. Electronically signed and approved by: Delia Garcia M.D. Radiologist
== END | disposition home or self-care (01) ==
LOC: RADMAMWWP 14:38
PROVIDERS: ATTEND Obstetrics & Gynecology
DX: Z12.31 Encounter for screening mammogram for malignant neoplasm of breast (principal); R92.333 Mammographic heterogeneous density, bilateral breasts; Z78.0 Asymptomatic menopausal state; Z80.3 Family history of malignant neoplasm of breast
CPT/HCPCS: 77063; 77067

== ENCOUNTER → 2024-10-26 | Outpatient (CLI) | payer MEDICAID ==
--- NOTE | 2024-10-26 11:45 | MM ---
Reason for Exam: Additional evaluation requested from abnormal screening. Last screening mammogram was performed less than 1 month ago. Patient History: Menarche at age 13. First Full-Term at age 31. Late child-bearing (after 30). Hysterectomy at age 58. Postmenopausal. 2013, Benign Ultrasound-Guided Core Biopsy on the left side. Mother had breast cancer, age 60. Risk Values: Leesa 5 year model risk: 3.3%. NCI Lifetime model risk: 17.0%. Prior Study Comparison: 06/05/2022 Bilateral MG 3D diag mammo w/cad [facility], [facility]. 08/26/2023 Bilateral MG 3D screening mammo w/cad, [facility]. 10/19/2024 Bilateral MG 3D screening mammo w/cad, [facility]. Tissue Density: Left: The breasts are heterogeneously dense, which may obscure small masses. Findings: Analyzed By CAD. Background dense tissue with prominent ducts is redemonstrated on additional images and is unchanged from 2022 mammogram. No suspicious new or enlarging mass identified on additional views. Overall Assessment: Negative, BI-RAD 1 Management: Screening Mammogram of both breasts in 1 year. Return to routine follow-up. Results were given to the patient verbally at the time of exam. Patient should continue monthly self-breast exams. A clinical breast exam by your physician is recommended on an annual basis. This exam should not preclude additional follow-up of suspicious palpable abnormalities. Note on Leesa scores and lifetime risk: 1. A Leesa score greater than 3% is considered moderate risk. If this is the case, consider specialist referral to assess eligibility for a risk reducing agent. 2. If overall lifetime risk for the development of breast cancer is 20% or higher, the patient may qualify for future screening with alternating mammogram and breast MRI. [facility], , 10/26/2024 11:39 AM. Electronically signed and approved by: Ruddy Garcia M.D.
== END | disposition home or self-care (01) ==
LOC: RADMAMWWP 10:56
PROVIDERS: ATTEND Obstetrics & Gynecology
DX: R92.8 Other abnormal and inconclusive findings on diagnostic imaging of breast (principal); R92.332 Mammographic heterogeneous density, left breast; Z78.0 Asymptomatic menopausal state; Z80.3 Family history of malignant neoplasm of breast
CPT/HCPCS: 77061; 77065